=== PATIENT | female | born 1995 | race Caucasian/White ===

== ENCOUNTER → 2018-01-01 14:08 | Outpatient (CLI) | payer OTHER, SELFPAY ==
[2018-01-01 17:08] LABS: Chlamydia Trachomatis by PCR Negative (Negative); Neisserai gonorrhoeae by PCR Negative (Negative)
[2018-01-01 17:09] LABS: Probe Check PASS; Sample Adequacy Control PASS; Specimen Processing Control PASS
[2018-01-25 14:00] LABS: HPV Reflexed? NOT INDICATED
== END ==
PROVIDERS: Visit Provider Obstetrics & Gynecology
DX: Z12.4 Encounter for screening for malignant neoplasm of cervix (principal); Z11.3 Encounter for screening for infections with a predominantly sexual mode of transmission
CPT/HCPCS: 87491; 87591; 88175; G0145

== ENCOUNTER → 2018-01-29 11:53 | Outpatient (CLI) | payer OTHER, SELFPAY ==
[2018-01-29 12:21] LABS: Color, Urine Yellow (Yellow); Glucose, Dipstick Normal (Normal); Ketone-Dipstick Negative (Negative); Leukocyte Esterase-Dipstick 100 /ul (Negative); Nitrite-Dipstick Negative (Negative); Occult Blood-Urine 10 /ul (Negative); Protein-Dipstick 15 mg/dl (Negative); Specific Gravity, Urine 1.025 (1.002-1.030); Urine Bilirubin Dipstick Negative (Negative); Urine Clarity Sl. Cloudy (Clear); Urine Urobilinogen Normal (Normal)
[2018-01-29 12:22] LABS: Absolute Lymphocyte Count 2.11 X10^3/ul (0.83-4.51); Absolute Neutrophil Count 6.2 X10^3/uL (2.0-7.7); Basophil# 0.06 X10^3/uL; Basophil% 0.6 % (0-1); Eosinophil# 0.13 X10^3/uL; Eosinophils% 1.4 % (0-5); Hematocrit 40.8 % (37-47); Hemoglobin 13.6 g/dl (12.0-15.0); Lymphocyte # 2.11 X10^3/ul (4.0); Lymphocyte % 22.4 % (19-41); Mean Corp Hgb Conc 33.3 g/gl (32-36); Mean Corpuscular Hgb 31.9 pg (27.0-32.0); Mean Corpuscular Volume 95.6 fL (81-99); Mean Platelet Vol. 11.6 fl (6.2-12.0); Monocyte# 0.93 X10^3/uL; Monocyte% 9.9 % (0-10); Neutrophil # 6.16 X10^3/uL (2.7-7.7); Neutrophil % 65.5 % (47-70); Platelet Count 281 K/mm3 (150-450); RBC Distribution Width SD 44.2 fl (35.1-43.9); Red Blood Count 4.27 M/mm3 (4.2-5.4); White Blood Count 9.4 K/mm3 (4.4-11.0)
[2018-01-29 12:24] LABS: POSITIVE COUNT NO; POSITIVE DIFFERENTIAL NO; POSITIVE MORPHOLOGY NO
[2018-01-29 12:51] LABS: Amphetamine Urine VISTA NEGATIVE (<1000 ng/mL); Barbiturate Urine VISTA NEGATIVE (< 200 ng/mL); Benzodiazepine Urine VISTA NEGATIVE (< 200 ng/mL); Cocaine Urine VISTA NEGATIVE (< 300 ng/mL); Ecstacy Urine VISTA POSITIVE (< 500 ng/mL); Methadone Urine VISTA NEGATIVE (< 300 ng/mL); PCP Urine VISTA NEGATIVE (< 25 ng/mL); THC Urine VISTA NEGATIVE (< 50 ng/mL); Vista UDS pH Range 6
[2018-01-29 13:04] LABS: Thyroid Stim Hormone (TSH) 2.74 uIU/mL (0.358-3.74)
[2018-01-30 09:09] LABS: HIV - WCH Non-Reactive (Nonreactive); Rubella IgG 103.7 IU/mL
[2018-01-30 11:59] LABS: HEPATITIS B SURFACE AG Negative (Negative); Hep C Antibodies 0.3 s/co ratio (0.0-0.9)
[2018-02-01 01:01] LABS: Prenatal RPR NONREACTIVE (NONREACTIVE)
[2018-02-01 14:42] LABS: Free T3 2.6 pg/mL (2.18-3.98); T4 Free Direct 0.86 ng/dL (0.76-1.46)
== END ==
PROVIDERS: Visit Provider Obstetrics & Gynecology
DX: Z34.81 Encounter for supervision of other normal pregnancy, first trimester (principal)
CPT/HCPCS: 36415; 80307; 81002; 84439; 84443; 84481; 85025; 86703; 86762; 86803; 87340

== ENCOUNTER 2018-03-15 22:23 | Inpatient (IN) | payer OTHER, SELFPAY ==
[2018-03-15 22:28] VITALS: BP 124/77; PULSE 72; RESP 16; TEMP 36.8; O2SAT 98; BMI 20.7
[2018-03-15] MEDS: 0.9% Normal Saline 1,000 ML 1000 ML IV (22:50)
[2018-03-15] MEDS: Ondansetron 4 MG/2 ML Vial IV (22:51)
[2018-03-15 23:03] LABS: Absolute Lymphocyte Count 1.72 X10^3/ul (0.83-4.51); Absolute Neutrophil Count 11.1 X10^3/uL (2.0-7.7); Basophil# 0.02 X10^3/uL; Basophil% 0.1 % (0-1); Eosinophil# 0.02 X10^3/uL; Eosinophils% 0.1 % (0-5); Hematocrit 40.9 % (37-47); Hemoglobin 13.9 g/dl (12.0-15.0); Lymphocyte # 1.72 X10^3/ul (4.0); Lymphocyte % 12.9 % (19-41); Mean Corpuscular Hgb 31.7 pg (27.0-32.0); Mean Corpuscular Volume 93.4 fL (81-99); Mean Platelet Vol. 10.7 fl (6.2-12.0); Monocyte# 0.45 X10^3/uL; Monocyte% 3.4 % (0-10); Neutrophil # 11.12 X10^3/uL (2.7-7.7); Neutrophil % 83.4 % (47-70); Platelet Count 287 K/mm3 (150-450); RBC Distribution Width CV 12.9 % (11.6-14.6); RBC Distribution Width SD 44.1 fl (35.1-43.9); Red Blood Count 4.38 M/mm3 (4.2-5.4); White Blood Count 13.4 K/mm3 (4.4-11.0)
[2018-03-15 23:05] LABS: POSITIVE COUNT NO; POSITIVE DIFFERENTIAL NO; POSITIVE MORPHOLOGY NO
[2018-03-15 23:10] LABS: Prothrombin Time (Protime)PT. 12.7 SECONDS (11.7-14.9)
[2018-03-15 23:11] LABS: Partial Thromboplast Time 27.3 Seconds (24.1-36.2)
[2018-03-15 23:16] LABS: Anion Gap 12 (5-15); BUN 10 mg/dL (7-18); BUN/Creat Ratio 17.8 RATIO (10-20); Chloride 104 mmol/L (98-107); Creatinine, Serum 0.56 mg/dL (0.55-1.02); EST Glomerular Filtration Rate 143 mL/min (>60); Est Glom Filt Rate - Afr Amer 173 mL/min (>60); Estimated Creatinine Clearance 136.07 ml/min; Glucose 84 mg/dL (74-106); Potassium 3.6 mmol/L (3.5-5.1); Sodium Level 136 mmol/L (136-145)
[2018-03-15] MEDS: Morphine 4 MG/ML Syringe IV (23:46)
[2018-03-15] MEDS: proMETHazine 25 MG/ML Syringe 6.25 MG IV (23:46)
[2018-03-15] MEDS: 0.9% Normal Saline 1,000 ML 150 ML IV (23:47)
--- NOTE | 2018-03-15 23:53 | ED.VISSUMM ---
- ER Visit Summary Date of Service: 03/15/18 Chief Complaint: Abdominal pain, nausea and vomiting History of Present Illness: The patient is a 23 F patient presents with right lower quadrant abdominal pain 2 hours prior to arrival. Nausea and vomiting shortly after. No hematemesis. States dry heaving. Patient 16-week gestation followed by Dr. Maria. Last seen 2 weeks ago. Urinary frequency. History of cholecystectomy 2 years ago in [place]. Pain is sharp in nature. Symptoms worse with ambulance ride into the department. Denies any complications with up-to-date. Patient on medications for anxiety. Last meal was 3 hours prior to arrival, states ate a hot dog prior to the baseball game. Physical Examination: General: Alert and oriented ?3, no acute distress HEENT: Normocephalic, atraumatic. Moist mucosa membranes Neck: supple, nontender. Cardiovascular: Regular rate and rhythm, no murmurs Respiratory: Normal breath sounds, symmetric, no distress Abdomen: Soft, gravid abdomen, right lower quadrant tenderness, negative Rovsing's. Negative rebound. Extremities: Nontender, no edema, pulses intact ?4 Neuro: no focal neurological deficits. Test Results: WBC 13.4. Hemoglobin 13. Creatinine 0.56. UA [address] scan abdomen pelvis notes normal appendix, ileus noted with small intestines. Emergency Department Course and Treatment: Bedside ultrasound intrauterine heart tones 130s. Patient 16 weeks gestation presents with right lower quadrant tenderness. Labs were obtained noted white count 13.4. I spoke with covering surgeon Dr. Johnson at 2325, requested definitive scan and call back. CT oral contrast can obtained. Patient treated with morphine initial Zofran, Phenergan was added. Results of CT scan notes ileus with currently a normal appendix. She still has right lower quadrant pain and nausea symptoms. We discussed with Dr. Johnson, discussed with persistent symptoms, states he would like me to talk to medicine in OB for admission. Medicine does not feels a medical issue at this time. Spoke with Dr. Yarelis Ko covering for Dr. Maria, agrees with admitting to her service however she would like surgery to evaluate in the ED. I rediscussed with surgery who will evaluate in the ED. Treatment Plan: [] Disposition: Admission Impression: 1. Right lower quadrant pain 2. Ileus 3. 16 weeks 4. Nausea and vomiting. This note was generated with [employer] dictation software. It may contain incorrect words, spelling, and punctuation that were not noted in review of the chart prior to signing ED Disposition - Plan for ED Patient: Disposition: Acute Care Hospital [facility] Chief Complaint: Nausea/Vomiting Diagnosis: Right lower quadrant abdominal pain, Ileus, 16 weeks gestation of , Nausea and vomiting Referrals: Ashlie Erazo, [place] [Primary Care Provider] -
--- NOTE | 2018-03-15 23:56 | ED.DCSUM_ITS ---
- ER Visit Summary Date of Service: 03/15/18 Chief Complaint: Abdominal pain, nausea and vomiting History of Present Illness: The patient is a 23 F patient presents with right lower quadrant abdominal pain 2 hours prior to arrival. Nausea and vomiting shortly after. No hematemesis. States dry heaving. Patient 16-week gestation followed by Dr. Maria. Last seen 2 weeks ago. Urinary frequency. History of cholecystectomy 2 years ago in [place]. Pain is sharp in nature. Symptoms worse with ambulance ride into the department. Denies any complications with up-to-date. Patient on medications for anxiety. Last meal was 3 hours prior to arrival, states ate a hot dog prior to the baseball game. Physical Examination: General: Alert and oriented ?3, no acute distress HEENT: Normocephalic, atraumatic. Moist mucosa membranes Neck: supple, nontender. Cardiovascular: Regular rate and rhythm, no murmurs Respiratory: Normal breath sounds, symmetric, no distress Abdomen: Soft, gravid abdomen, right lower quadrant tenderness, negative Rovsing's. Negative rebound. Extremities: Nontender, no edema, pulses intact ?4 Neuro: no focal neurological deficits. Test Results: WBC 13.4. Hemoglobin 13. Creatinine 0.56. UA [address] scan abdomen pelvis notes normal appendix, ileus noted with small intestines. Emergency Department Course and Treatment: Bedside ultrasound intrauterine heart tones 130s. Patient 16 weeks gestation presents with right lower quadrant tenderness. Labs were obtained noted white count 13.4. I spoke with covering surgeon Dr. Johnson at 2325, requested definitive scan and call back. CT oral contrast can obtained. Patient treated with morphine initial Zofran, Phenergan was added. Results of CT scan notes ileus with currently a normal appendix. She still has right lower quadrant pain and nausea symptoms. We discussed with Dr. Johnson, discussed with persistent symptoms, states he would like me to talk to medicine in OB for admission. Medicine does not feels a medical issue at this time. Spoke with Dr. Yarelis Ko covering for Dr. Maria, agrees with admitting to her service however she would like surgery to evaluate in the ED. I rediscussed with surgery who will evaluate in the ED. Treatment Plan: [] Disposition: Admission Impression: 1. Right lower quadrant pain 2. Ileus 3. 16 weeks 4. Nausea and vomiting. This note was generated with [employer] dictation software. It may contain incorrect words, spelling, and punctuation that were not noted in review of the chart prior to signing ED Disposition - Plan for ED Patient: Disposition: Acute Care Hospital [facility] Chief Complaint: Nausea/Vomiting Diagnosis: Right lower quadrant abdominal pain, Ileus, 16 weeks gestation of , Nausea and vomiting Referrals: Ashlie Erazo, [place] [Primary Care Provider] -
[2018-03-16] VITALS (9 sets, daily range): BP systolic 99–112; BP diastolic 49–62; PULSE 78–103; RESP 15–18; TEMP 36.6–37.1; O2SAT 93–100; BMI 23.5
[2018-03-16 01:55] LABS: Bacteria 0 SEEN /hpf (None Seen); Red Blood Cells-Urine 0 SEEN /hpf (0-5)
[2018-03-16 01:57] LABS: Color, Urine Yellow (Yellow); Glucose, Dipstick Normal (Normal); Leukocyte Esterase-Dipstick 25 /ul (Negative); Nitrite-Dipstick Negative (Negative); Occult Blood-Urine Negative /ul (Negative); Protein-Dipstick 15 mg/dl (Negative); Urine Bilirubin Dipstick Negative (Negative); Urine Clarity Clear (Clear); Urine Urobilinogen Normal (Normal)
[2018-03-16 02:01] LABS: Ketone-Dipstick 150 mg/dl (Negative)
[2018-03-16 02:05] LABS: Mucous, Urine RARE /hpf (<or=2+); Squamous Epithelial Cells - UA 0-5 SEEN /hpf (5-10); White Blood Cells 0-5 SEEN /hpf (0-5)
[2018-03-16] MEDS: Morphine 4 MG/ML Syringe IV (02:08)
[2018-03-16] MEDS: proMETHazine 25 MG/ML Syringe 12.5 MG IV (03:23)
--- NOTE | 2018-03-16 03:56 | PCM.CONS.GEN ---
Reason for Consult Date of Consultation: 03/16/18 History of Present Illness: The patient is a 23 year old F presents to the ER due to abdominal pain nausea and vomiting. Patient is 16 weeks . Patient states that her pain started around 8 PM and then she had a lot of vomiting afterwards and still has the acidic taste in her mouth. Patient complains of occasional sharp pains on the right side of her abdomen currently states that about a 5/10 and she does state that sometimes the pain does go around to her back as well. Patient had a CT abdomen pelvis did show mild dilation of the small bowel read as a paralytic ileus but the appendix was seen and normal. Patient does have a slight leukocytosis but again the patient is also and has been vomiting. Patient has been does state that he had Chipotle for lunch and he even felt a little sick afterwards but no nausea or vomiting. patient did urgently have to have a bowel movement about 2:00 today; however, patient does have IBS type symptoms where she only has bowel movements about once every 4 days normally. Also patient needs had the flu recently and was visiting. Past Medical History Allergies latex Allergy (Verified 03/15/18 22:25) Rash Home Medications: Ambulatory Orders Medication Instructions Recorded Fluoxetine HCl 80 mg PO QHS 03/15/18 Ranitidine [Zantac] 150 mg PO QHS 03/15/18 buPROPion tablets [Wellbutrin 100 mg PO QHS 03/15/18 tablets] [place]-3 Fatty Acids/Fish Oil 1 cap PO DAILY 03/16/18 [[place] 3 1,000 mg Softgel] Pnv No.122/Iron/Folic Acid 1 tab PO QHS 03/16/18 [ Multi Tablet] Surgical History: Surgical History (Last Updated 03/16/18 @ 04:35 by Maura Ding MD) H/O shoulder surgery Z98.890 History of tonsillectomy and adenoidectomy Z98.890 S/P cholecystectomy K58.9 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: - - Patient is 16 weeks Lives: Spouse/ Significant Other Smoking Status: Never smoker - *Family History Maternal Family History: Family History (Last Updated 03/16/18 @ 04:36 by Maura Ding MD) Mother Endometrial cancer History Items: No pertinent history Review of Systems Constitutional: Reports: Anorexia HEENT: Denies: Difficulty Swallowing Cardiovascular: Denies: Chest Pain Respiratory: Denies: Shortness of Breath Gastrointestinal: Reports: Abdominal Pain, Nausea, Vomiting Patient Problems: Active and Suspected Problems (Last Updated 03/16/18 @ 04:29 by Maura Ding MD) Right lower quadrant abdominal pain (Acute) Ileus (Acute) 16 weeks gestation of (Acute) Nausea and vomiting (Acute) - Physical Exam General: Alert, Oriented x3, Cooperative HEENT: Atraumatic Cardiovascular: Regular rate Abdomen: Soft, Distended - mild, Tender - rlq,suprapubic>ruq, no PS, - - 16 weeks Extremities: No clubbing, No cyanosis, No edema Neurological: Cranial nerves II-XII grossly intact Psych/Mental Status: Normal Affect Vital Signs Temp Pulse Resp BP Pulse Ox 98.4 F 91 18 110/62 96 03/16/18 01:49 03/16/18 03:28 03/16/18 03:28 03/16/18 03:28 03/16/18 03:28 Oxygen Delivery Method Room Air Weight: 121 lb 0.54 oz Body Mass Index (BMI) 20.7 Laboratory Tests Past 24 Hrs 03/15/18 03/15/18 03/15/18 22:56 22:56 22:56 WBC 13.4 H RBC 4.38 Hgb 13.9 Hct 40.9 MCV 93.4 MCH 31.7 MCHC 34.0 RDW 12.9 RDW Differential 44.1 H Plt Count 287 MPV 10.7 Immature Gran % (Auto) 0.100 Neut % (Auto) 83.4 H Lymph % (Auto) 12.9 L [place] % (Auto) 3.4 Eos % (Auto) 0.1 Baso % (Auto) 0.1 Absolute Neuts (auto) 11.1 H Absolute Lymphs (auto) 1.72 Total Counted Not Reportable PT 12.7 INR 1.0 APTT 27.3 Sodium 136 Potassium 3.6 Chloride 104 Carbon Dioxide 20.0 L Anion Gap 12 BUN 10 Creatinine 0.56 Estim Creat Clear Calc 136.07 Est GFR (MDRD) Af Amer 173 Est GFR (MDRD) Non-Af 143 BUN/Creatinine Ratio 17.8 Glucose 84 Calcium 9.0 Urine Color Urine Clarity Urine pH Ur Specific [place] Urine Protein Urine Glucose (UA) Urine Ketones Urine Occult Blood Urine Nitrite Urine Bilirubin Urine Urobilinogen Ur Leukocyte Esterase Urine RBC Urine WBC Ur Squamous Epith Cells Urine Bacteria Urine Mucus 03/16/18 01:47 WBC RBC Hgb Hct MCV MCH MCHC RDW RDW Differential Plt Count MPV Immature Gran % (Auto) Neut % (Auto) Lymph % (Auto) [place] % (Auto) Eos % (Auto) Baso % (Auto) Absolute Neuts (auto) Absolute Lymphs (auto) Total Counted PT INR APTT Sodium Potassium Chloride Carbon Dioxide Anion Gap BUN Creatinine Estim Creat Clear Calc Est GFR (MDRD) Af Amer Est GFR (MDRD) Non-Af BUN/Creatinine Ratio Glucose Calcium Urine Color Yellow Urine Clarity Clear Urine pH 6.0 Ur Specific [place] 1.020 Urine Protein 15 H Urine Glucose (UA) Normal Urine Ketones 150 H Urine Occult Blood Negative Urine Nitrite Negative Urine Bilirubin Negative Urine Urobilinogen Normal Ur Leukocyte Esterase 25 H Urine RBC 0 SEEN Urine WBC 0-5 SEEN Ur Squamous Epith Cells 0-5 SEEN Urine Bacteria 0 SEEN Urine Mucus RARE Assessment/Plan All Active Problems (Last Updated 03/16/18 @ 04:29 by Maura Ding MD) Right lower quadrant abdominal pain (Acute) Ileus (Acute) 16 weeks gestation of (Acute) Nausea and vomiting (Acute) 23-year-old female 16 weeks , abdominal pain, nausea and vomiting 1. Patient CT did show a normal appendix however she did have mildly dilated small bowel throughout and even liquid stool in her cecum area and her transverse colon and more liquid than normal stool in her descending colon. This was read as a possible paralytic ileus, patient did have contrast however it did not only made it to her stomach and first part of her small bowel. On exam patient does have right lower quadrant pain but also has some left lower quadrant pain right upper quadrant pain as well. And with the normal looking appendix on CT I would not expect an ileus to be from that, question if she could have some gastrointestinal issues or even flulike depending on what the niece had as well. We will continue serial abdominal exams. Also discussed with Dr. Maura Ko and she will let us know if there is any changes as well as she is admitting. Alejandra Chacon M.D. Pager: [phone] [facility] [address] [place] [address], [facility], [address] [place] [address] Office: [phone] Code Visit Inpatient E&M: 66039 Init Hosp L1
--- NOTE | 2018-03-16 04:02 | CON.PCM_ITS ---
Reason for Consult Date of Consultation: 03/16/18 History of Present Illness: The patient is a 23 year old F presents to the ER due to abdominal pain nausea and vomiting. Patient is 16 weeks . Patient states that her pain started around 8 PM and then she had a lot of vomiting afterwards and still has the acidic taste in her mouth. Patient complains of occasional sharp pains on the right side of her abdomen currently states that about a 5/10 and she does state that sometimes the pain does go around to her back as well. Patient had a CT abdomen pelvis did show mild dilation of the small bowel read as a paralytic ileus but the appendix was seen and normal. Patient does have a slight leukocyt osis but again the patient is also and has been vomiting. Patient has been does state that he had Chipotle for lunch and he even felt a little sick afterwards but no nausea or vomiting. patient did urgently have to have a bowel movement about 2:00 today; however, patient does have IBS type symptoms where she only has bowel movements about once every 4 days normally. Also patient needs had the flu recently and was visiting. Past Medical History Allergies latex Allergy (Verified 03/15/18 22:25) Rash Home Medications: Ambulatory Orders Medication Instructions Recorded Fluoxetine HCl 80 mg PO QHS 03/15/18 Ranitidine [Zantac] 150 mg PO QHS 03/15/18 buPROPion tablets [Wellbutrin 100 mg PO QHS 03/15/18 tablets] [place]-3 Fatty Acids/Fish Oil 1 cap PO DAILY 03/16/18 [[place] 3 1,000 mg Softgel] Pnv No.122/Iron/Folic Acid 1 tab PO QHS 03/16/18 [ Multi Tablet] Surgical History: Surgical History (Last Updated 03/16/18 @ 04:35 by Maura Ding MD) H/O shoulder surgery Z98.890 History of tonsillectomy and adenoidectomy Z98.890 S/P cholecystectomy K58.9 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 Lives: Spouse/ Significant Other Smoking Status: Never smoker - *Family History Maternal Family History: Family History (Last Updated 03/16/18 @ 04:36 by Maura Ding MD) Mother Endometrial cancer History Items: No pertinent history Review of Systems Constitutional: Reports: Anorexia HEENT: Denies: Difficulty Swallowing Cardiovascular: Denies: Chest Pain Respiratory: Denies: Shortness of Breath Gastrointestinal: Reports: Abdominal Pain, Nausea, Vomiting Patient Problems: Active and Suspected Problems (Last Updated 03/16/18 @ 04:29 by Maura Ko MD) Right lower quadrant abdominal pain (Acute) Ileus (Acute) 16 weeks gestation of (Acute) Nausea and vomiting (Acute) - Physical Exam General: Alert, Oriented x3, Cooperative HEENT: Atraumatic Cardiovascular: Regular rate Abdomen: Soft, Distended - mild, Tender - rlq,suprapubic>ruq, no PS, - - 16 weeks Extremities: No clubbing, No cyanosis, No edema Neurological: Cranial nerves II-XII grossly intact Psych/Mental Status: Normal Affect Vital Signs Temp Pulse Resp BP Pulse Ox 98.4 F 91 18 110/62 96 03/16/18 01:49 03/16/18 03:28 03/16/18 03:28 03/16/18 03:28 03/16/18 03:28 Oxygen Delivery Method Room Air Weight: 121 lb 0.54 oz Body Mass Index (BMI) 20.7 Laboratory Tests Past 24 Hrs 03/15/18 03/15/18 03/15/18 22:56 22:56 22:56 WBC 13.4 H RBC 4.38 Hgb 13.9 Hct 40.9 MCV 93.4 MCH 31.7 MCHC 34.0 RDW 12.9 RDW Differential 44.1 H Plt Count 287 MPV 10.7 Immature Gran % (Auto) 0.100 Neut % (Auto) 83.4 H Lymph % (Auto) 12.9 L [place] % (Auto) 3.4 Eos % (Auto) 0.1 Baso % (Auto) 0.1 Absolute Neuts (auto) 11.1 H Absolute Lymphs (auto) 1.72 Total Counted Not Reportable PT 12.7 INR 1.0 APTT 27.3 Sodium 136 Potassium 3.6 Chloride 104 Carbon Dioxide 20.0 L Anion Gap 12 BUN 10 Creatinine 0.56 Estim Creat Clear Calc 136.07 Est GFR (MDRD) Af Amer 173 Est GFR (MDRD) Non-Af 143 BUN/Creatinine Ratio 17.8 Glucose 84 Calcium 9.0 Urine Color Urine Clarity Urine pH Ur Specific [place] Urine Protein Urine Glucose (UA) Urine Ketones Urine Occult Blood Urine Nitrite Urine Bilirubin Urine Urobilinogen Ur Leukocyte Esterase Urine RBC Urine WBC Ur Squamous Epith Cells Urine Bacteria Urine Mucus 03/16/18 01:47 WBC RBC Hgb Hct MCV MCH MCHC RDW RDW Differential Plt Count MPV Immature Gran % (Auto) Neut % (Auto) Lymph % (Auto) [place] % (Auto) Eos % (Auto) Baso % (Auto) Absolute Neuts (auto) Absolute Lymphs (auto) Total Counted PT INR APTT Sodium Potassium Chloride Carbon Dioxide Anion Gap BUN Creatinine Estim Creat Clear Calc Est GFR (MDRD) Af Amer Est GFR (MDRD) Non-Af BUN/Creatinine Ratio Glucose Calcium Urine Color Yellow Urine Clarity Clear Urine pH 6.0 Ur Specific [place] 1.020 Urine Protein 15 H Urine Glucose (UA) Normal Urine Ketones 150 H Urine Occult Blood Negative Urine Nitrite Negative Urine Bilirubin Negative Urine Urobilinogen Normal Ur Leukocyte Esterase 25 H Urine RBC 0 SEEN Urine WBC 0-5 SEEN Ur Squamous Epith Cells 0-5 SEEN Urine Bacteria 0 SEEN Urine Mucus RARE Assessment/Plan All Active Problems (Last Updated 03/16/18 @ 04:29 by Maura Ding MD) Right lower quadrant abdominal pain (Acute) Ileus (Acute) 16 weeks gestation of (Acute) Nausea and vomiting (Acute) 23-year-old female 16 weeks , abdominal pain, nausea and vomiting 1. Patient CT did show a normal appendix however she did have mildly dilated small bowel throughout and even liquid stool in her cecum area and her transverse colon and more liquid than normal stool in her descending colon. This was read as a possible paralytic ileus, patient did have contrast however it did not only made it to her stomach and first part of her small bowel. On exam patient does have right lower quadrant pain but also has some left lower quadrant pain right upper quadrant pain as well. And with the normal looking appendix on CT I would not expect an ileus to be from that, question if she could have some gastrointestinal issues or even flulike depending on what the niece had as well. We will continue serial abdominal exams. Also discussed with Dr. Maura Ko and she will let us know if there is any changes as well as she is admitting. Alejandra Chacon M.D. Pager: [phone] [facility] [address] [place] [address], [facility], [address] [place] [address] Office: [phone] Code Visit Inpatient E&M: 16904 Init Hosp L1
--- NOTE | 2018-03-16 04:25 | PCM.HP.STD ---
Problem List (1) 16 weeks gestation of Status: Acute (2) Ileus Status: Acute (3) Nausea and vomiting Status: Acute Qualifiers: Vomiting Intractability: non-intractable (4) Right lower quadrant abdominal pain Status: Acute History of Present Illness Date of Admission: 03/16/18 Chief Complaint: nausea and vomiting The patient is a 23 year old 1 para 0 at 16 weeks gestation by a 6-week ultrasound (the [facility] 08/31/2018) presents with nausea and vomiting since 8 PM yesterday evening. The patient has had decreased appetite with nausea and rare emesis throughout her . She notes a history of IBS and prepregnancy has bowel movements approximately every other day. During has bowel movements approximately every 4 days and often has diarrhea if she takes medications to aid in elimination. She reports eating at [employer] and 30 minutes later developed acute abdominal pain on the right side with profuse vomiting. She has history of a cholecystectomy 3-5 years ago (cannot recall exact dates) and relates she was told her appendix was inflamed at the time but did not need to be removed(?). She has no obstetric complaints. Past Medical History Allergies latex Allergy (Verified 03/15/18 22:25) Rash Home Medications: Ambulatory Orders Medication Instructions Recorded Fluoxetine HCl 80 mg PO DAILY 03/15/18 Ranitidine [Zantac] 150 mg PO BID 03/15/18 buPROPion tablets [Wellbutrin 100 mg PO DAILY 03/15/18 tablets] Surgical History: Surgical History (Last Updated 03/16/18 @ 04:35 by Maura Ding MD) H/O shoulder surgery Z98.890 History of tonsillectomy and adenoidectomy Z98.890 S/P cholecystectomy K58.9 Surgical History: arthscropcy, hip - left, arthroscopy, knee - right Psychiatric History: Anxiety, Depression [employer] History: - - LGSIL PAP Lives: Spouse/ Significant Other Smoking Status: Never smoker Tobacco Use: Non-smoker Alcohol: None Drugs: None - *Family History Maternal Family History: Family History (Last Updated 03/16/18 @ 04:36 by Maura Ding MD) Mother Endometrial cancer History Items: No pertinent history Review of Systems Constitutional: Reports: Anorexia, Fatigue. Denies: Fever Cardiovascular: Denies: Chest Pain Respiratory: Denies: Shortness of Breath Gastrointestinal: Reports: Abdominal Pain, Constipation, Nausea, Vomiting. Denies: Diarrhea Genitourinary: Reports: Frequency. Denies: Dysuria Gynecological: Denies: Vaginal bleeding VTE Information - Inpt Only VTE Present on Admission: No VTE Mechan Device Prophylaxis: None VTE Pharm Prophylaxis ordered?: No Patient Problems: Active and Suspected Problems (Last Updated 03/16/18 @ 04:29 by Maura Ding MD) Right lower quadrant abdominal pain (Acute) Ileus (Acute) 16 weeks gestation of (Acute) Nausea and vomiting (Acute) Subjective: See HPI - Physical Exam General: Alert, Oriented x3, Cooperative, No apparent distress HEENT: Atraumatic, Normocephalic Lungs: Clear to auscultation, Normal air movement Cardiovascular: Regular rate, Regular Rhythm, Normal S1, Normal S2 Abdomen: Bowel Sounds Present, Soft, Non-Distended, Gravid, - - +RUQ and RLQ tenderness without rebound or guarding Extremities: No edema, No Calf Tenderness Neurological: Neuro grossly intact Psych/Mental Status: Normal Affect, Appropriate, Alert and oriented to time, place, person, mood and affect Comment: FHT in ER 160 bpm Vital Signs Temp Pulse Resp BP Pulse Ox 98.4 F 91 18 110/62 96 03/16/18 01:49 03/16/18 03:28 03/16/18 03:28 03/16/18 03:28 03/16/18 03:28 Oxygen Delivery Method Room Air Weight: 54.9 kg Body Mass Index (BMI) 20.7 Laboratory Tests Past 24 Hrs 03/15/18 03/15/18 03/15/18 22:56 22:56 22:56 WBC 13.4 H RBC 4.38 Hgb 13.9 Hct 40.9 MCV 93.4 MCH 31.7 MCHC 34.0 RDW 12.9 RDW Differential 44.1 H Plt Count 287 MPV 10.7 Immature Gran % (Auto) 0.100 Neut % (Auto) 83.4 H Lymph % (Auto) 12.[address] % (Auto) 3.4 Eos % (Auto) 0.1 Baso % (Auto) 0.1 Absolute Neuts (auto) 11.1 H Absolute Lymphs (auto) 1.72 Total Counted Not Reportable PT 12.7 INR 1.0 APTT 27.3 Sodium 136 Potassium 3.6 Chloride 104 Carbon Dioxide 20.0 L Anion Gap 12 BUN 10 Creatinine 0.56 Estim Creat Clear Calc 136.07 Est GFR (MDRD) Af Amer 173 Est GFR (MDRD) Non-Af 143 BUN/Creatinine Ratio 17.8 Glucose 84 Calcium 9.0 Urine Color Urine Clarity Urine pH Ur Specific [place] Urine Protein Urine Glucose (UA) Urine Ketones Urine Occult Blood Urine Nitrite Urine Bilirubin Urine Urobilinogen Ur Leukocyte Esterase Urine RBC Urine WBC Ur Squamous Epith Cells Urine Bacteria Urine Mucus 03/16/18 01:47 WBC RBC Hgb Hct MCV MCH MCHC RDW RDW Differential Plt Count MPV Immature Gran % (Auto) Neut % (Auto) Lymph % (Auto) [place] % (Auto) Eos % (Auto) Baso % (Auto) Absolute Neuts (auto) Absolute Lymphs (auto) Total Counted PT INR APTT Sodium Potassium Chloride Carbon Dioxide Anion Gap BUN Creatinine Estim Creat Clear Calc Est GFR (MDRD) Af Amer Est GFR (MDRD) Non-Af BUN/Creatinine Ratio Glucose Calcium Urine Color Yellow Urine Clarity Clear Urine pH 6.0 Ur Specific [place] 1.020 Urine Protein 15 H Urine Glucose (UA) Normal Urine Ketones 150 H Urine Occult Blood Negative Urine Nitrite Negative Urine Bilirubin Negative Urine Urobilinogen Normal Ur Leukocyte Esterase 25 H Urine RBC 0 SEEN Urine WBC 0-5 SEEN Ur Squamous Epith Cells 0-5 SEEN Urine Bacteria 0 SEEN Urine Mucus RARE Assessment/Plan All Active Problems (Last Updated 03/16/18 @ 04:29 by Maura Ding MD) Right lower quadrant abdominal pain (Acute) Ileus (Acute) 16 weeks gestation of (Acute) Nausea and vomiting (Acute) 23yo G1 @ 16wga admitted with ileus - possible IBS exacerbation by , however, cannot r/o infectious etiology. -CT A/P reviewed - No acute intra-abdominal process -Mild leukocytosis, may also be due to or hemoconcentration. -Discussed presentation with Dr. Chacon, consulting from General Surgery. Will plan for bowel rest, serial abdominal exams. -Reglan, Dulcolax suppository -[facility] qshift Code Visit Inpatient E&M: 53435 Init Hosp L3
--- NOTE | 2018-03-16 04:29 | HP.PCM_ITS ---
Problem List (1) 16 weeks gestation of Status: Acute (2) Ileus Status: Acute (3) Nausea and vomiting Status: Acute Qualifiers: Vomiting Intractability: non-intractable (4) Right lower quadrant abdominal pain Status: Acute History of Present Illness Date of Admission: 03/16/18 Chief Complaint: nausea and vomiting The patient is a 23 year old 1 para 0 at 16 weeks gestation by a 6-week ultrasound (the [facility] 08/31/2018) presents with nausea and vomiting since 8 PM yesterday evening. The patient has had decreased appetite with nausea and rare emesis throughout her . She notes a history of IBS and prepregnancy has bowel movements approximately every other day. During has bowel movements approximately every 4 days and often has diarrhea if she takes medications to aid in elimination. She reports eating at [employer] and 30 minutes later developed acute abdominal pain on the right side with profuse vomiting. She has history of a cholecystectomy 3-5 years ago (cannot recall exact dates) and relates she was told her appendix was inflamed at the time but did not need to be removed(?). She has no obstetric complaints. Past Medical History Allergies latex Allergy (Verified 03/15/18 22:25) Rash Home Medications: Ambulatory Orders Medication Instructions Recorded Fluoxetine HCl 80 mg PO DAILY 03/15/18 Ranitidine [Zantac] 150 mg PO BID 03/15/18 buPROPion tablets [Wellbutrin 100 mg PO DAILY 03/15/18 tablets] Surgical History: Surgical History (Last Updated 03/16/18 @ 04:35 by Maura Ding MD) H/O shoulder surgery Z98.890 History of tonsillectomy and adenoidectomy Z98.890 S/P cholecystectomy K58.9 Surgical History: arthscropcy, hip - left, arthroscopy, knee - right Psychiatric History: Anxiety, Depression [employer] History: - - LGSIL PAP Lives: Spouse/ Significant Other Smoking Status: Never smoker Tobacco Use: Non-smoker Alcohol: None Drugs: None - *Family History Maternal Family History: Family History (Last Updated 03/16/18 @ 04:36 by Maura Ding MD) Mother Endometrial cancer History Items: No pertinent history Review of Systems Constitutional: Reports: Anorexia, Fatigue. Denies: Fever Cardiovascular: Denies: Chest Pain Respiratory: Denies: Shortness of Breath Gastrointestinal: Reports: Abdominal Pain, Constipation, Nausea, Vomiting. Bill es: Diarrhea Genitourinary: Reports: Frequency. Denies: Dysuria Gynecological: Denies: Vaginal bleeding VTE Information - Inpt Only VTE Present on Admission: No VTE Mechan Device Prophylaxis: None VTE Pharm Prophylaxis ordered?: No Patient Problems: Active and Suspected Problems (Last Updated 03/16/18 @ 04:29 by Maura Ko MD) Right lower quadrant abdominal pain (Acute) Ileus (Acute) 16 weeks gestation of (Acute) Nausea and vomiting (Acute) Subjective: See HPI - Physical Exam General: Alert, Oriented x3, Cooperative, No apparent distress HEENT: Atraumatic, Normocephalic Lungs: Clear to auscultation, Normal air movement Cardiovascular: Regular rate, Regular Rhythm, Normal S1, Normal S2 Abdomen: Bowel Sounds Present, Soft, Non-Distended, Gravid, - - +RUQ and RLQ tenderness without rebound or guarding Extremities: No edema, No Calf Tenderness Neurological: Neuro grossly intact Psych/Mental Status: Normal Affect, Appropriate, Alert and oriented to time, place, person, mood and affect Comment: FHT in ER 160 bpm Vital Signs Temp Pulse Resp BP Pulse Ox 98.4 F 91 18 110/62 96 03/16/18 01:49 03/16/18 03:28 03/16/18 03:28 03/16/18 03:28 03/16/18 03:28 Oxygen Delivery Method Room Air Weight: 54.9 kg Body Mass Index (BMI) 20.7 Laboratory Tests Past 24 Hrs 03/15/18 03/15/18 03/15/18 22:56 22:56 22:56 WBC 13.4 H RBC 4.38 Hgb 13.9 Hct 40.9 MCV 93.4 MCH 31.7 MCHC 34.0 RDW 12.9 RDW Differential 44.1 H Plt Count 287 MPV 10.7 Immature Gran % (Auto) 0.100 Neut % (Auto) 83.4 H Lymph % (Auto) 12.9 L [place] % (Auto) 3.4 Eos % (Auto) 0.1 Baso % (Auto) 0.1 Absolute Neuts (auto) 11.1 H Absolute Lymphs (auto) 1.72 Total Counted Not Reportable PT 12.7 INR 1.0 APTT 27.3 Sodium 136 Potassium 3.6 Chloride 104 Carbon Dioxide 20.0 L Anion Gap 12 BUN 10 Creatinine 0.56 Estim Creat Clear Calc 136.07 Est GFR (MDRD) Af Amer 173 Est GFR (MDRD) Non-Af 143 BUN/Creatinine Ratio 17.8 Glucose 84 Calcium 9.0 Urine Color Urine Clarity Urine pH Ur Specific [place] Urine Protein Urine Glucose (UA) Urine Ketones Urine Occult Blood Urine Nitrite Urine Bilirubin Urine Urobilinogen Ur Leukocyte Esterase Urine RBC Urine WBC Ur Squamous Epith Cells Urine Bacteria Urine Mucus 03/16/18 01:47 WBC RBC Hgb Hct MCV MCH MCHC RDW RDW Differential Plt Count MPV Immature Gran % (Auto) Neut % (Auto) Lymph % (Auto) [place] % (Auto) Eos % (Auto) Baso % (Auto) Absolute Neuts (auto) Absolute Lymphs (auto) Total Counted PT INR APTT Sodium Potassium Chloride Carbon Dioxide Anion Gap BUN Creatinine Estim Creat Clear Calc Est GFR (MDRD) Af Amer Est GFR (MDRD) Non-Af BUN/Creatinine Ratio Glucose Calcium Urine Color Yellow Urine Clarity Clear Urine pH 6.0 Ur Specific [place] 1.020 Urine Protein 15 H Urine Glucose (UA) Normal Urine Ketones 150 H Urine Occult Blood Negative Urine Nitrite Negative Urine Bilirubin Negative Urine Urobilinogen Normal Ur Leukocyte Esterase 25 H Urine RBC 0 SEEN Urine WBC 0-5 SEEN Ur Squamous Epith Cells 0-5 SEEN Urine Bacteria 0 SEEN Urine Mucus RARE Assessment/Plan All Active Problems (Last Updated 03/16/18 @ 04:29 by Maura Ding MD) Right lower quadrant abdominal pain (Acute) Ileus (Acute) 16 weeks gestation of (Acute) Nausea and vomiting (Acute) 23yo G1 @ 16wga admitted with ileus - possible IBS exacerbation by , however, cannot r/o infectious etiology. -CT A/P reviewed - No acute intra-abdominal process -Mild leukocytosis, may also be due to or hemoconcentration. -Discussed presentation with Dr. Chacon, consulting from General Surgery. Will plan for bowel rest, serial abdominal exams. -Reglan, Dulcolax suppository -[facility] qshift Code Visit Inpatient E&M: 20552 Init Hosp L3
[2018-03-16] MEDS: Metoclopramide 10 MG/2 ML Vial 2.5 MG IV ×4 (04:47→21:45)
[2018-03-16] MEDS: Acetaminophen 500 MG Tablet PO (04:53)
[2018-03-16] MEDS: Dextrose 5%/0.9% NaCl 1,000 ML 150 ML IV ×3 (05:20→18:37)
[2018-03-16] MEDS: 0.9% NaCl Peripheral Flush Adult/Peds IV ×3 (09:18→17:25)
--- NOTE | 2018-03-16 12:55 | PCM.PN.BLA ---
Progress Note Patient reports abdominal pain worsening and requests pain medication. Notes that morphine did not help pain earlier. She notes however that she slept most of the morning after arriving to the floor and recently awoke around noon. She denies further emesis. + nausea. She desires to eat. No flatus, however has had loose watery stool x 1 without blood or mucus. Denies fever. Has not yet been out of bed. Vital Signs - 8 hr 03/16/18 09:14 Temperature 98.2 F Pulse Rate 91 Respiratory Rate 16 Blood Pressure 101/50 L Pulse Ox 99 GEN - NAD, AAO x 3 ABD - soft, gravid, + RLQ tenderness without rebound or guarding. RUQ tenderness resolved FHR - 140 bpm A/P: 23yo at 16wga with ileus. -Ordered Dilaudid prn. Reviewed with patient potential constipating effect of opioid medications which may further contribute to ileus. I suspect she has worsened pain due to mass movement of gas. Following discussion, pt indicates she will hold off on pain medication at this time, but she is aware it is available if pain is severe. -Advanced to sips and chips
--- NOTE | 2018-03-16 13:35 | CM.UR ---
Attempted to meet with patient 2x earlier this am however her and her were sleeping in room. Vikram Samson RN, CCM.
[2018-03-16] MEDS: HYDROmorphone 0.5 MG/0.5 ML SYRINGE IV ×2 (16:54→21:42)
[2018-03-16] MEDS: Bisacodyl 10 MG Suppository RECTAL (17:25)
[2018-03-16] MEDS: Ondansetron 4 MG/2 ML Vial IV (17:25)
--- NOTE | 2018-03-16 20:10 | NURSING ---
JAE Coles in to see pt for FHT. HR 130
--- NOTE | 2018-03-16 23:24 | CT_ITS ---
STUDY: CT ABDOMEN AND PELVIS WITH CONTRAST REASON FOR EXAM: Female, 23 years old. RLQ PAIN AND VOMITING TONIGHT,16 WEEKS HX:CELIAC DISEASE,CHOLECYSTECTOMY RADIATION DOSAGE (If Supplied By Facility): CTDIvol = ( 7.91 ) mGy, DLP = ( 424.69 ) mGycm TECHNIQUE: Transaxial images were obtained from the dome of the diaphragm to the symphysis pubis without oral contrast. 100ML ml of Isovue 300 contrast was administered. Sagittal and coronal images were reconstructed. Individualized dose optimization techniques were used for this CT. COMPARISON: None. FINDINGS: The visualized lung bases are unremarkable. The visualized portions of the heart are within normal limits. Normal liver. There are surgical clips in the gallbladder fossa consistent with a prior cholecystectomy. Normal spleen. Normal pancreas. Normal bilateral adrenal glands. Normal right kidney. Normal left kidney. Normal visualized stomach. There is a paralytic ileus of the small intestine with mild diffuse distention. Normal colon. The appendix is visualized and appears normal. Normal abdominal aorta. Normal inferior vena cava. Normal retroperitoneum. Normal urinary bladder. There is a single intrauterine gestation. The placenta is fundal. Normal abdominal wall. Normal osseous structures. CT/Abdomen/Pelvis WITH Contrast IMPRESSION: There is a paralytic ileus of the small intestine with mild diffuse distention. Electronically Signed: Bernice West MD at 2:52 EDT Tel , Service support ,
[2018-03-17] MEDS: Dextrose 5%/0.9% NaCl 1,000 ML 150 ML IV ×4 (01:04→21:20)
[2018-03-17 01:14] VITALS: BP 101/55; PULSE 72; RESP 16; TEMP 36.6; O2SAT 98
[2018-03-17] MEDS: HYDROmorphone 0.5 MG/0.5 ML SYRINGE IV (05:16)
[2018-03-17] MEDS: Metoclopramide 10 MG/2 ML Vial 2.5 MG IV ×4 (05:16→21:21)
[2018-03-17 06:03] LABS: Absolute Lymphocyte Count 0.93 X10^3/ul (0.83-4.51); Absolute Neutrophil Count 3.4 X10^3/uL (2.0-7.7); Basophil# 0.02 X10^3/uL; Basophil% 0.4 % (0-1); Eosinophil# 0.18 X10^3/uL; Eosinophils% 3.7 % (0-5); Hematocrit 31.6 % (37-47); Hemoglobin 10.5 g/dl (12.0-15.0); Lymphocyte # 0.93 X10^3/ul (4.0); Lymphocyte % 18.9 % (19-41); Mean Corp Hgb Conc 33.2 g/gl (32-36); Mean Corpuscular Hgb 32.1 pg (27.0-32.0); Mean Corpuscular Volume 96.6 fL (81-99); Mean Platelet Vol. 11.2 fl (6.2-12.0); Monocyte# 0.38 X10^3/uL; Monocyte% 7.7 % (0-10); Neutrophil # 3.38 X10^3/uL (2.7-7.7); Neutrophil % 68.9 % (47-70); Platelet Count 205 K/mm3 (150-450); RBC Distribution Width CV 13.3 % (11.6-14.6); Red Blood Count 3.27 M/mm3 (4.2-5.4); White Blood Count 4.9 K/mm3 (4.4-11.0)
[2018-03-17 06:08] LABS: POSITIVE COUNT NO; POSITIVE DIFFERENTIAL NO; POSITIVE MORPHOLOGY NO
[2018-03-17 06:34] LABS: ALB/GLOB Ratio 0.8 RATIO (0.9-2.4); AST(SGOT) 30 U/L (15-37); Alanine Aminotransfer ALT/SGPT 22 U/L (13-56); Albumin, Serum 2.2 g/dL (3.2-5.0); Alkaline Phosphatase 53 U/L (45-117); Anion Gap 7 (5-15); BUN 1 mg/dL (7-18); BUN/Creat Ratio 2.8 RATIO (10-20); Calcium,Total 7.2 mg/dL (8.5-10.1); Chloride 112 mmol/L (98-107); Creatinine, Serum 0.36 mg/dL (0.55-1.02); EST Glomerular Filtration Rate 240 mL/min (>60); Est Glom Filt Rate - Afr Amer 290 mL/min (>60); Estimated Creatinine Clearance 211.67 ml/min; Globulin 2.8 g/dL (2.2-4.2); Glucose 90 mg/dL (74-106); Sodium Level 139 mmol/L (136-145)
--- NOTE | 2018-03-17 07:33 | PCM.PN.SRG ---
Patient Problems: Active and Suspected Problems (Last Updated 03/16/18 @ 04:29 by Maura Ding MD) Right lower quadrant abdominal pain (Acute) Ileus (Acute) 16 weeks gestation of (Acute) Nausea and vomiting (Acute) Subjective: Patient still complaining of right lower quadrant pain, patient only walked once yesterday, positive flatus this morning while in the restroom, still complains of nausea but no emesis and has been taking sips - Physical Exam General: Alert, Oriented x3, Cooperative, No apparent distress Lungs: Normal air movement Cardiovascular: Regular rate Abdomen: Soft, Passing Flatus, Gravid, Distended - Mild to moderate, Tender - Diffusely tender mild worse in the bilateral lower quadrants, no guarding, equivocal rebound Neurological: Cranial nerves II-XII grossly intact Vital Signs Temp Pulse Resp BP Pulse Ox 98 F 72 16 101/55 L 98 03/17/18 01:14 03/17/18 01:14 03/17/18 01:14 03/17/18 01:14 03/17/18 01:14 Oxygen Delivery Method Room Air Weight: 148 lb 3.2 oz Body Mass Index (BMI) 23.5 Intake and Output for Last 24 Hours 03/15/18 03/16/18 03/17/18 23:59 23:59 23:59 Intake Total 1252 / 1252 2505 / 2505 Output Total 1000 / 1000 1200 / 1200 Balance 252 / 252 1305 / 1305 Laboratory Tests Past 24 Hrs 03/17/18 03/17/18 05:43 05:43 WBC 4.9 RBC 3.27 L Hgb 10.5 L Hct 31.6 L MCV 96.6 MCH 32.1 H MCHC 33.2 RDW 13.3 RDW Differential 45.0 H Plt Count 205 MPV 11.2 Immature Gran % (Auto) 0.400 Neut % (Auto) 68.9 Lymph % (Auto) 18.9 L [place] % (Auto) 7.7 Eos % (Auto) 3.7 Baso % (Auto) 0.4 Absolute Neuts (auto) 3.4 Absolute Lymphs (auto) 0.93 Total Counted Not Reportable Sodium 139 Potassium 3.0 L Chloride 112 H Carbon Dioxide 20.0 L Anion Gap 7 BUN 1 L Creatinine 0.36 L Estim Creat Clear Calc 211.67 Est GFR (MDRD) Af Amer 290 Est GFR (MDRD) Non-Af 240 BUN/Creatinine Ratio 2.8 L Glucose 90 Calcium 7.2 L Total Bilirubin 0.10 L AST 30 ALT 22 Alkaline Phosphatase 53 Total Protein 5.0 L Albumin 2.2 L Globulin 2.8 Albumin/Globulin Ratio 0.8 L Medical Necessity - Tobacco Use Smoking Status: Never smoker Tobacco Use: Non-smoker Assessment/Plan All Active Problems (Last Updated 03/16/18 @ 04:29 by Maura Ding MD) Right lower quadrant abdominal pain (Acute) Ileus (Acute) 16 weeks gestation of (Acute) Nausea and vomiting (Acute) 23-year-old female 16 weeks , abdominal pain-ileus, nausea and vomiting 1. Patient's white blood cell count is within normal range with no shift this morning, still complains of abdominal pain but only walked once yesterday. Is getting 0.5 of Dilaudid for pain last at 5 AM previous to that was about 10 PM. Patient did have large amount of flatus this morning in the bathroom. Encourage patient that if she is going to get pain meds recommend walking in the halls to help promote bowel function. Will replace potassium and encourage patient to ambulate and will give a trial of clears. Discussed with Dr. Yarelis Ko. Alejandra Chacon M.D. Pager: [phone] [facility] [address] [place] [address], [facility], [address] [place] [address] Office: [phone]
--- NOTE | 2018-03-17 07:38 | PN.SURG_ITS ---
Patient Problems: Active and Suspected Problems (Last Updated 03/16/18 @ 04:29 by Maura Ko MD) Right lower quadrant abdominal pain (Acute) Ileus (Acute) 16 weeks gestation of (Acute) Nausea and vomiting (Acute) Subjective: Patient still complaining of right lower quadrant pain, patient only walked once yesterday, positive flatus this morning while in the restroom, still complains of nausea but no emesis and has been taking sips - Physical Exam General: Alert, Oriented x3, Cooperative, No apparent distress Lungs: Normal air movement Cardiovascular: Regular rate Abdomen: Soft, Passing Flatus, Gravid, Distended - Mild to moderate, Tender - Diffusely tender mild worse in the bilateral lower quadrants, no guarding, equivocal rebound Neurological: Cranial nerves II-XII grossly intact Vital Signs Temp Pulse Resp BP Pulse Ox 98 F 72 16 101/55 L 98 03/17/18 01:14 03/17/18 01:14 03/17/18 01:14 03/17/18 01:14 03/17/18 01:14 Oxygen Delivery Method Room Air Weight: 148 lb 3.2 oz Body Mass Index (BMI) 23.5 Intake and Output for Last 24 Hours 03/15/18 03/16/18 03/17/18 23:59 23:59 23:59 Intake Total 1252 / 1252 2505 / 2505 Output Total 1000 / 1000 1200 / 1200 Balance 252 / 252 1305 / 1305 Laboratory Tests Past 24 Hrs 03/17/18 03/17/18 05:43 05:43 WBC 4.9 RBC 3.27 L Hgb 10.5 L Hct 31.6 L MCV 96.6 MCH 32.1 H MCHC 33.2 RDW 13.3 RDW Differential 45.0 H Plt Count 205 MPV 11.2 Immature Gran % (Auto) 0.400 Neut % (Auto) 68.9 Lymph % (Auto) 18.9 L [place] % (Auto) 7.7 Eos % (Auto) 3.7 Baso % (Auto) 0.4 Absolute Neuts (auto) 3.4 Absolute Lymphs (auto) 0.93 Total Counted Not Reportable Sodium 139 Potassium 3.0 L Chloride 112 H Carbon Dioxide 20.0 L Anion Gap 7 BUN 1 L Creatinine 0.36 L Estim Creat Clear Calc 211.67 Est GFR (MDRD) Af Amer 290 Est GFR (MDRD) Non-Af 240 BUN/Creatinine Ratio 2.8 L Glucose 90 Calcium 7.2 L Total Bilirubin 0.10 L AST 30 ALT 22 Alkaline Phosphatase 53 Total Protein 5.0 L Albumin 2.2 L Globulin 2.8 Albumin/Globulin Ratio 0.8 L Medical Necessity - Tobacco Use Smoking Status: Never smoker Tobacco Use: Non-smoker Assessment/Plan All Active Problems (Last Updated 03/16/18 @ 04:29 by Maura Ding MD) Right lower quadrant abdominal pain (Acute) Ileus (Acute) 16 weeks gestation of (Acute) Nausea and vomiting (Acute) 23-year-old female 16 weeks , abdominal pain-ileus, nausea and vomiting 1. Patient's white blood cell count is within normal range with no shift this morning, still complains of abdominal pain but only walked once yesterday. Is getting 0.5 of Dilaudid for pain last at 5 AM previous to that was about 10 PM. Patient did have large amount of flatus this morning in the bathroom. Encourage patient that if she is going to get pain meds recommend walking in the halls to help promote bowel function. Will replace potassium and encourage patient to ambulate and will give a trial of clears. Discussed with Dr. Yarelis Ko. Alejandra Chacon M.D. Pager: [phone] [facility] [address] [place] [address], [facility], [address] [place] [address] Office: [phone]
[2018-03-17 07:55] VITALS: BP 104/54; PULSE 81; RESP 18; TEMP 36.9; O2SAT 99
--- NOTE | 2018-03-17 08:47 | PCM.PN.OB ---
Patient Problems: Active and Suspected Problems (Last Updated 03/16/18 @ 04:29 by Maura Ding MD) Right lower quadrant abdominal pain (Acute) Ileus (Acute) 16 weeks gestation of (Acute) Nausea and vomiting (Acute) Subjective: Denies passing flatus. Had two additional bowel movements. She is nauseated, no vomiting, tolerated jello this morning. She had episode of lightheadedness last night approximately 1 hour after receiving IV Dilaudid, no falls or syncope. Last had pain medication early this morning. She relates able to sleep but awoke with increased abdominal pain. Objective: AVSS - Physical Exam General: Alert, Oriented x3, Cooperative HEENT: Atraumatic, Normocephalic Lungs: Clear to auscultation, Normal air movement Cardiovascular: Regular rate, Regular Rhythm, Normal S1, Normal S2 Abdomen: Bowel Sounds Present, Soft, Non-Distended, Gravid, - - Diffusely tender mild worse in the bilateral lower quadrants, No rebound or guarding Extremities: No edema, No Calf Tenderness Neurological: Neuro grossly intact Psych/Mental Status: Normal Affect, Appropriate, Alert and oriented to time, place, person, mood and affect Vital Signs Temp Pulse Resp BP Pulse Ox 98.4 F 81 18 104/54 L 99 03/17/18 07:55 03/17/18 07:55 03/17/18 07:55 03/17/18 07:55 03/17/18 07:55 Oxygen Delivery Method Room Air Weight: 67.222 kg Body Mass Index (BMI) 23.5 Intake and Output for Last 24 Hours 03/15/18 03/16/18 03/17/18 23:59 23:59 23:59 Intake Total 1252 / 1252 2505 / 2505 Output Total 1000 / 1000 1200 / 1200 Balance 252 / 252 1305 / 1305 Laboratory Tests Past 24 Hrs 03/17/18 03/17/18 05:43 05:43 WBC 4.9 RBC 3.27 L Hgb 10.5 L Hct 31.6 L MCV 96.6 MCH 32.1 H MCHC 33.2 RDW 13.3 RDW Differential 45.0 H Plt Count 205 MPV 11.2 Immature Gran % (Auto) 0.400 Neut % (Auto) 68.9 Lymph % (Auto) 18.9 L [place] % (Auto) 7.7 Eos % (Auto) 3.7 Baso % (Auto) 0.4 Absolute Neuts (auto) 3.4 Absolute Lymphs (auto) 0.93 Total Counted Not Reportable Sodium 139 Potassium 3.0 L Chloride 112 H Carbon Dioxide 20.0 L Anion Gap 7 BUN 1 L Creatinine 0.36 L Estim Creat Clear Calc 211.67 Est GFR (MDRD) Af Amer 290 Est GFR (MDRD) Non-Af 240 BUN/Creatinine Ratio 2.8 L Glucose 90 Calcium 7.2 L Total Bilirubin 0.10 L AST 30 ALT 22 Alkaline Phosphatase 53 Total Protein 5.0 L Albumin 2.2 L Globulin 2.8 Albumin/Globulin Ratio 0.8 L Medical Necessity - Tobacco Use Smoking Status: Never smoker Tobacco Use: Non-smoker Assessment/Plan All Active Problems (Last Updated 03/16/18 @ 04:29 by Maura Ding MD) Right lower quadrant abdominal pain (Acute) Ileus (Acute) 16 weeks gestation of (Acute) Nausea and vomiting (Acute) 23yo G1 @ 16wga admitted with ileus - possible IBS exacerbation by -CT A/P reviewed - No acute intra-abdominal process - no surgical abdomen at this time -Mild leukocytosis, now resolved - suspect prior hemoconcentration -Hypokalemia - will replete orally per Dr. Chacon -Advance to [facility] -T qshift
[2018-03-17] MEDS: 0.9% NaCl Peripheral Flush Adult/Peds IV ×2 (09:29→17:15)
--- NOTE | 2018-03-17 10:39 | CM.UR ---
Met face to face with patient. Denies any needs. Patient is a young woman who was completely independent prior to admission and should be able to return to previous level of functioning w/o difficulty. Instructed that case mgmt is available should anything arise. Verb understanding. Vikram Samson RN, [facility].
--- NOTE | 2018-03-17 13:23 | NURSING ---
FHR 136 bpm in LLQ per doppler
[2018-03-17 14:21] VITALS: BP 98/66; PULSE 63; RESP 18; TEMP 37.2; O2SAT 96
[2018-03-17] MEDS: Acetaminophen 500 MG Tablet PO (20:33)
[2018-03-17] MEDS: traMADol 50 MG Tablet PO (20:34)
[2018-03-17] MEDS: Bisacodyl 10 MG Suppository RECTAL (20:35)
[2018-03-17 21:00] VITALS: BP 104/58; PULSE 77; RESP 16; TEMP 36.8; O2SAT 100
[2018-03-18] MEDS: HYDROmorphone 0.5 MG/0.5 ML SYRINGE IV ×2 (01:06→05:10)
[2018-03-18] MEDS: Ondansetron 4 MG/2 ML Vial IV ×2 (01:06→13:41)
[2018-03-18 03:00] VITALS: BP 93/49; PULSE 64; RESP 15; TEMP 36.7; O2SAT 97
[2018-03-18] MEDS: traMADol 50 MG Tablet PO (04:12)
[2018-03-18] MEDS: Dextrose 5%/0.9% NaCl 1,000 ML 150 ML IV ×4 (04:14→23:53)
[2018-03-18] MEDS: Metoclopramide 10 MG/2 ML Vial 2.5 MG IV ×3 (05:19→17:02)
[2018-03-18 06:17] LABS: Absolute Lymphocyte Count 1.99 X10^3/ul (0.83-4.51); Absolute Neutrophil Count 1.6 X10^3/uL (2.0-7.7); Basophil# 0.02 X10^3/uL; Basophil% 0.4 % (0-1); Eosinophil# 0.26 X10^3/uL; Eosinophils% 5.7 % (0-5); Hematocrit 30.7 % (37-47); Hemoglobin 10.3 g/dl (12.0-15.0); Lymphocyte # 1.99 X10^3/ul (4.0); Lymphocyte % 43.8 % (19-41); Mean Corp Hgb Conc 33.6 g/gl (32-36); Mean Corpuscular Hgb 32.5 pg (27.0-32.0); Mean Corpuscular Volume 96.8 fL (81-99); Mean Platelet Vol. 10.9 fl (6.2-12.0); Monocyte# 0.65 X10^3/uL; Monocyte% 14.3 % (0-10); Neutrophil # 1.61 X10^3/uL (2.7-7.7); Neutrophil % 35.6 % (47-70); Platelet Count 200 K/mm3 (150-450); RBC Distribution Width CV 13.3 % (11.6-14.6); RBC Distribution Width SD 45.2 fl (35.1-43.9); Red Blood Count 3.17 M/mm3 (4.2-5.4); White Blood Count 4.5 K/mm3 (4.4-11.0)
[2018-03-18 06:22] LABS: POSITIVE COUNT NO; POSITIVE DIFFERENTIAL NO; POSITIVE MORPHOLOGY NO
[2018-03-18 06:44] LABS: ALB/GLOB Ratio 0.8 RATIO (0.9-2.4); AST(SGOT) 25 U/L (15-37); Alanine Aminotransfer ALT/SGPT 24 U/L (13-56); Albumin, Serum 2.2 g/dL (3.2-5.0); Alkaline Phosphatase 50 U/L (45-117); Anion Gap 8 (5-15); BUN 1 mg/dL (7-18); BUN/Creat Ratio 3.3 RATIO (10-20); Calcium,Total 7.9 mg/dL (8.5-10.1); Chloride 112 mmol/L (98-107); Creatinine, Serum 0.31 mg/dL (0.55-1.02); EST Glomerular Filtration Rate 289 mL/min (>60); Est Glom Filt Rate - Afr Amer 350 mL/min (>60); Estimated Creatinine Clearance 245.81 ml/min; Globulin 2.8 g/dL (2.2-4.2); Glucose 86 mg/dL (74-106); Potassium 3.5 mmol/L (3.5-5.1); Sodium Level 141 mmol/L (136-145); Total Bilirubin < 0.10 mg/dL (0.20-1.00)
--- NOTE | 2018-03-18 07:54 | PCM.PN.SRG ---
Patient Problems: Active and Suspected Problems (Last Updated 03/16/18 @ 04:29 by Maura Ding MD) Right lower quadrant abdominal pain (Acute) Ileus (Acute) 16 weeks gestation of (Acute) Nausea and vomiting (Acute) Subjective: Patient tolerated full liquids however she states she did get nausea medicine afterwards but she has been sipping on water and Gatorade throughout the day and no emesis, still complains of right-sided abdominal pain did walk a couple times in the [place] yesterday denies any flatus or bowel movements. She did get several doses of Dilaudid as well as some tramadol. - Physical Exam General: Alert, Oriented x3, Cooperative, No apparent distress HEENT: Atraumatic Abdomen: Soft, Gravid, Distended - Mild, Tender - Diffusely mainly in the right lower and suprapubic area, no guarding or rebound Extremities: No edema Vital Signs Temp Pulse Resp BP Pulse Ox 98.0 F 64 15 93/49 L 97 03/18/18 03:00 03/18/18 03:00 03/18/18 03:00 03/18/18 03:00 03/18/18 03:00 Oxygen Delivery Method Room Air Weight: 131 lb 6.328 oz Body Mass Index (BMI) 23.5 Intake and Output for Last 24 Hours 03/16/18 03/17/18 03/18/18 23:59 23:59 23:59 Intake Total 1252 / 1252 4080 / 4080 731 / 731 Output Total 1000 / 1000 3200 / 3200 1600 / 1600 Balance 252 / 252 880 / 880 -869 / -869 Laboratory Tests Past 24 Hrs 03/18/18 03/18/18 06:06 06:06 WBC 4.5 RBC 3.17 L Hgb 10.3 L Hct 30.7 L MCV 96.8 MCH 32.5 H MCHC 33.6 RDW 13.3 RDW Differential 45.2 H Plt Count 200 MPV 10.9 Immature Gran % (Auto) 0.200 Neut % (Auto) 35.6 L Lymph % (Auto) 43.8 H [place] % (Auto) 14.3 H Eos % (Auto) 5.7 H Baso % (Auto) 0.4 Absolute Neuts (auto) 1.6 L Absolute Lymphs (auto) 1.99 Total Counted Not Reportable Sodium 141 Potassium 3.5 Chloride 112 H Carbon Dioxide 21.0 Anion Gap 8 BUN 1 L Creatinine 0.31 L Estim Creat Clear Calc 245.81 Est GFR (MDRD) Af Amer 350 Est GFR (MDRD) Non-Af 289 BUN/Creatinine Ratio 3.3 L Glucose 86 Calcium 7.9 L Total Bilirubin < 0.10 L AST 25 ALT 24 Alkaline Phosphatase 50 Total Protein 5.0 L Albumin 2.2 L Globulin 2.8 Albumin/Globulin Ratio 0.8 L Medical Necessity - Tobacco Use Smoking Status: Never smoker Tobacco Use: Non-smoker Assessment/Plan All Active Problems (Last Updated 03/16/18 @ 04:29 by Maura Ding MD) Right lower quadrant abdominal pain (Acute) Ileus (Acute) 16 weeks gestation of (Acute) Nausea and vomiting (Acute) 23-year-old female 16 weeks , abdominal pain-ileus, nausea and vomiting 1. Patient did tolerate clears as well as full liquids and has been sipping however she is still denies any bowel movements yesterday and no emesis. However she did get several doses of narcotics. Discussed with Dr. Valenzuela will plan to stop all narcotics and will also give her a soapsuds enema. Alejandra Chacon M.D. Pager: [phone] [facility] [address] [place] [address], [address] [place] [address] Office: [phone]
[2018-03-18] MEDS: Acetaminophen 500 MG Tablet PO ×3 (08:06→17:23)
[2018-03-18 08:08] VITALS: BP 96/58; PULSE 57; RESP 16; TEMP 36.7; O2SAT 100
--- NOTE | 2018-03-18 08:15 | PCM.PN.OB ---
Patient Problems: Active and Suspected Problems (Last Updated 03/16/18 @ 04:29 by Maura Ding MD) Right lower quadrant abdominal pain (Acute) Ileus (Acute) 16 weeks gestation of (Acute) Nausea and vomiting (Acute) - Physical Exam Vital Signs Temp Pulse Resp BP Pulse Ox 98.1 F 57 L 16 96/58 L 100 03/18/18 08:08 03/18/18 08:08 03/18/18 08:08 03/18/18 08:08 03/18/18 08:08 Oxygen Delivery Method Room Air Weight: 59.6 kg Body Mass Index (BMI) 23.5 Intake and Output for Last 24 Hours 03/16/18 03/17/18 03/18/18 23:59 23:59 23:59 Intake Total 1252 / 1252 4080 / 4080 731 / 731 Output Total 1000 / 1000 3200 / 3200 1600 / 1600 Balance 252 / 252 880 / 880 -869 / -869 Laboratory Tests Past 24 Hrs 03/18/18 03/18/18 06:06 06:06 WBC 4.5 RBC 3.17 L Hgb 10.3 L Hct 30.7 L MCV 96.8 MCH 32.5 H MCHC 33.6 RDW 13.3 RDW Differential 45.2 H Plt Count 200 MPV 10.9 Immature Gran % (Auto) 0.200 Neut % (Auto) 35.6 L Lymph % (Auto) 43.8 H [place] % (Auto) 14.3 H Eos % (Auto) 5.7 H Baso % (Auto) 0.4 Absolute Neuts (auto) 1.6 L Absolute Lymphs (auto) 1.99 Total Counted Not Reportable Sodium 141 Potassium 3.5 Chloride 112 H Carbon Dioxide 21.0 Anion Gap 8 BUN 1 L Creatinine 0.31 L Estim Creat Clear Calc 245.81 Est GFR (MDRD) Af Amer 350 Est GFR (MDRD) Non-Af 289 BUN/Creatinine Ratio 3.3 L Glucose 86 Calcium 7.9 L Total Bilirubin < 0.10 L AST 25 ALT 24 Alkaline Phosphatase 50 Total Protein 5.0 L Albumin 2.2 L Globulin 2.8 Albumin/Globulin Ratio 0.8 L Medical Necessity - Tobacco Use Smoking Status: Never smoker Tobacco Use: Non-smoker Assessment/Plan All Active Problems (Last Updated 03/16/18 @ 04:29 by Maura Ding MD) Right lower quadrant abdominal pain (Acute) Ileus (Acute) 16 weeks gestation of (Acute) Nausea and vomiting (Acute)
--- NOTE | 2018-03-18 08:30 | PCM.PN.OB ---
Patient Problems: Active and Suspected Problems (Last Updated 03/16/18 @ 04:29 by Maura Ding MD) Right lower quadrant abdominal pain (Acute) Ileus (Acute) 16 weeks gestation of (Acute) Nausea and vomiting (Acute) Subjective: HD#3 Abdominal pain. H/o IBS. Severe N/V at admission 16 wks EGA States bowel movement yesterday after suppository, very loose and watery. + flatus. Still with cramping abdominal pain. Has had extensive workup with PCP at [facility] and states has had testing for Celiac and for Crohn's and testing was all inconclusive. She has been on too numerous to recall medications for her bowel in the past. States Bentyl has not helped. Was on Zofran earlier in but off this and using bid Vit B6 for N/V prevention States her parents are both ill with flu but not having similar symptoms to hers. Frustrated as feels no progress and nothing being done. She is no longer nauseated or vomiting. no diarrhea except loose stool after the suppository yesterday. Diet has also been advanced to full liquid which she is tolerating. CT done was negative WBCs normal -- not likely appendicitis. (reminded her that there was been some progress) Objective: Sitting up in bed, talking with her mother (who has the flu) - Physical Exam General: Alert, Oriented x3, Cooperative, No apparent distress HEENT: Atraumatic Neck: Supple Abdomen: Soft, Gravid - nonsurgical. Extremities: No clubbing, No cyanosis, No edema Neurological: Cranial nerves II-XII grossly intact Psych/Mental Status: Normal Affect Vital Signs Temp Pulse Resp BP Pulse Ox 98.1 F 57 L 16 96/58 L 100 03/18/18 08:08 03/18/18 08:08 03/18/18 08:08 03/18/18 08:08 03/18/18 08:08 Oxygen Delivery Method Room Air Weight: 59.6 kg Body Mass Index (BMI) 23.5 Intake and Output for Last 24 Hours 03/16/18 03/17/18 03/18/18 23:59 23:59 23:59 Intake Total 1252 / 1252 4080 / 4080 731 / 731 Output Total 1000 / 1000 3200 / 3200 1600 / 1600 Balance 252 / 252 880 / 880 -869 / -869 Laboratory Tests Past 24 Hrs 03/18/18 03/18/18 06:06 06:06 WBC 4.5 RBC 3.17 L Hgb 10.3 L Hct 30.7 L MCV 96.8 MCH 32.5 H MCHC 33.6 RDW 13.3 RDW Differential 45.2 H Plt Count 200 MPV 10.9 Immature Gran % (Auto) 0.200 Neut % (Auto) 35.6 L Lymph % (Auto) 43.8 H [place] % (Auto) 14.3 H Eos % (Auto) 5.7 H Baso % (Auto) 0.4 Absolute Neuts (auto) 1.6 L Absolute Lymphs (auto) 1.99 Total Counted Not Reportable Sodium 141 Potassium 3.5 Chloride 112 H Carbon Dioxide 21.0 Anion Gap 8 BUN 1 L Creatinine 0.31 L Estim Creat Clear Calc 245.81 Est GFR (MDRD) Af Amer 350 Est GFR (MDRD) Non-Af 289 BUN/Creatinine Ratio 3.3 L Glucose 86 Calcium 7.9 L Total Bilirubin < 0.10 L AST 25 ALT 24 Alkaline Phosphatase 50 Total Protein 5.0 L Albumin 2.2 L Globulin 2.8 Albumin/Globulin Ratio 0.8 L Medical Necessity - Tobacco Use Smoking Status: Never smoker Tobacco Use: Non-smoker Assessment/Plan All Active Problems (Last Updated 03/16/18 @ 04:29 by Maura Ding MD) Right lower quadrant abdominal pain (Acute) Ileus (Acute) 16 weeks gestation of (Acute) Nausea and vomiting (Acute) 16 + wk EGA . H/O chronic bowel issues, likely IBS. With extensive workup in past. diet now at full liquids and seems to be tolerating, but with continued cramping pain. States [employer] did not work for her in the past. -- appreciate general surgeon evaluation. nonsurgical issue likely. CT negative for appendicitis. -- Consult hospitalist for additional evaluation and management of medications. Trial of antispasmodic. Continue care.
--- NOTE | 2018-03-18 09:47 | PCM.PN.HOSP ---
Patient Problems: Active and Suspected Problems (Last Updated 03/16/18 @ 04:29 by Maura Ding MD) Right lower quadrant abdominal pain (Acute) Ileus (Acute) 16 weeks gestation of (Acute) Nausea and vomiting (Acute) Subjective: Medical consult for IBS management This is a 23 y/o female with history of IBS diagnosed 2-4 years ago in the [facility]. She had colonoscopies and EGD done. She has not followed up in 2 years. Reportedly, she has been managing her abdominal symptoms; predorminantly constipation with stool softners. She was admitted on 03/15/18 with abdominal pain, nausea and vomiting. She is G1Po 16 week . She had a CT scan of the abdomen done which showed normal appendix but ileus. She has been seen by gynecology and general surgery. She complains of persistent right sided pain, nausea and vomiting. She had a bowel movement yestreday after suppository bisacody and has been tolerating a liquid diet. Patient complains of persistent sharp right sided pain, that comes and goes. She denied fever, chills, dysuria or frequency. Her vital signs are stable temperature 98.1 F, heart rate 57, blood pressure 96/58, respiratory rate 16, saturating 100% on room air Admitting blood work shows a RBC count of 4.5, improved from 13.4 on admission, hemoglobin is 10.3, platelet count is 200, sodium is 141, potassium 3.5, Cl 112, bicarbonate is 21, BUN is 1, creatinine 0.31. UA is unremarkable. CT abdomen shows paralytic ileus of small intestines with diffuse distention. Vitals/I&O's: Vital Signs Temp Pulse Resp BP Pulse Ox 98.1 F 57 L 16 96/58 L 100 03/18/18 08:08 03/18/18 08:08 03/18/18 08:08 03/18/18 08:08 03/18/18 08:08 Oxygen Delivery Method Room Air Weight: 59.6 kg Body Mass Index (BMI) 23.5 Intake and Output for Last 24 Hours 03/16/18 03/17/18 03/18/18 23:59 23:59 23:59 Intake Total 1252 / 1252 4080 / 4080 731 / 731 Output Total 1000 / 1000 3200 / 3200 1600 / 1600 Balance 252 / 252 880 / 880 -869 / -869 General: Alert, Oriented x3, Cooperative, - - in mild distress HEENT: Atraumatic, PERRLA, EOMI, Normocephalic Oral: Moist Mucosa Neck: Supple, No JVD, Negative Carotid Bruits Lungs: Clear to auscultation, Normal air movement Cardiovascular: Regular rate, Regular Rhythm, Normal S1, Normal S2, No murmurs Abdomen: Bowel Sounds Present, Soft, Tender - right sided - upper and lower quadrant tenderness, no guarding, gravid uterus Extremities: No edema, Capillary Refill Less than 3 Seconds Skin: No rashes, No breakdown Musculoskeletal: No Tenderness to Palpation of Joints or Extremities Lymphatic: No Cervical, Supraclavicular, or Inguinal Adenopathy Neurological: Cranial nerves II-XII grossly intact, Neuro grossly intact Psych/Mental Status: Normal Affect, Appropriate Laboratory Results 03/18/18 06:06: WBC 4.5, RBC 3.17 L, Hgb 10.3 L, Hct 30.7 L, MCV 96.8, MCH 32.5 H, MCHC 33.6, RDW 13.3, RDW Differential 45.2 H, Plt Count 200, MPV 10.9, Immature Gran % (Auto) 0.200, Neut % (Auto) 35.6 L, Lymph % (Auto) 43.8 H, [place] % (Auto) 14.3 H, Eos % (Auto) 5.7 H, Baso % (Auto) 0.4, Absolute Neuts (auto) 1.6 L, Absolute Lymphs (auto) 1.99, Total Counted Not Reportable 03/18/18 06:06: Sodium 141, Potassium 3.5, Chloride 112 H, Carbon Dioxide 21.0, Anion Gap 8, BUN 1 L, Creatinine 0.31 L, Estim Creat Clear Calc 245.81, Est GFR (MDRD) Af Amer 350, Est GFR (MDRD) Non-Af 289, BUN/Creatinine Ratio 3.3 L, Glucose 86, Calcium 7.9 L, Total Bilirubin < 0.10 L, AST 25, ALT 24, Alkaline Phosphatase 50, Total Protein 5.0 L, Albumin 2.2 L, Globulin 2.8, Albumin/Globulin Ratio 0.8 L Current Medications Acetaminophen (Tylenol) 500 mg PO Q4H PRN PRN PRN Reason: Temp > 100.4 F Last Admin: 03/18/18 08:06 Dose: 500 mg Bisacodyl (Dulcolax) 10 mg RECTAL DAILY PRN PRN Reason: Constipation Hyoscyamine Sulfate (Levsin/Sl) 0.125 mg PO Q4H PRN PRN PRN Reason: Cramp Famotidine 20 mg/ Sodium (Chloride) 10 mls @ 300 mls/hr IV DAILY [facility] Last Admin: 03/17/18 09:29 Dose: 300 mls/hr Dextrose/Sodium Chloride (Dextrose 5%/0.9% Nacl) 1,000 mls @ 150 mls/hr IV .Q6H40M [facility] Last Admin: 03/18/18 04:14 Dose: 150 mls/hr Metoclopramide HCl (Reglan) 2.5 mg IV Q6H [facility] Last Admin: 03/18/18 05:19 Dose: 2.5 mg Ondansetron HCl (Zofran) 4 mg IV Q8H PRN PRN PRN Reason: NAUSEA Last Admin: 03/18/18 01:06 Dose: 4 mg Simethicone (Mylicon) 80 mg PO [facility] Last Admin: 03/18/18 08:07 Dose: 80 mg Sodium Chloride () 5 - 30 ml IV UD PRN PRN Reason: SALINE FLUSH Last Admin: 03/17/18 17:15 Dose: 10 ml Medical Necessity - Tobacco Use Smoking Status: Never smoker Tobacco Use: Non-smoker Assessment/Plan All Active Problems (Last Updated 03/16/18 @ 04:29 by Maura Ding MD) Right lower quadrant abdominal pain (Acute) Ileus (Acute) 16 weeks gestation of (Acute) Nausea and vomiting (Acute) 23-year-old 1 para 0, 16 weeks , history of IBS, not following gastroenterology in the outpatient, comes in complains of right abdominal pain. 1. IBS, likely constipation predorminant, patient used to follow with gastroenterology in the outpatient, Dr. Thacker, has not followed up in 2 years Status post reported colonoscopy and endoscopy Plan: [facility] records from gastroenterology office, certified low vision therapist consult for FODMAP diet, peppermint oil capsules([facility] pharmacy does not carry that), Metamucil daily, holding for diarrhea, dicyclomine 10mg prn qid, cannot start patient on Linzess on account of reported animal toxicity in . Patient will need to follow-up with GI in the outpatient. 2. Right sided abdominal pain, waxing and waning, CT abd/pelvis showed no acute abnormality except for paralytic ileus, general surgery consulted Plan: Continue per general surgery recommendations 3. , 16 weeks , being managed by OBGYN Code Visit Inpatient E&M: 38238 Subs Hosp L3
[2018-03-18] MEDS: 0.9% NaCl Peripheral Flush Adult/Peds IV ×3 (10:40→21:31)
[2018-03-18 14:00] VITALS: BP 95/59; PULSE 63; RESP 18; TEMP 36.9; O2SAT 100
--- NOTE | 2018-03-18 14:27 | PCA ---
faxed over to [facility] authorization for release of medical records for dr. segovia, have yet received request back
[2018-03-18] MEDS: Hyoscyamine Sulfate 0.125 MG Tablet PO (17:24)
--- NOTE | 2018-03-18 17:44 | PN.OBGYN_ITS ---
Patient Problems: Active and Suspected Problems (Last Updated 03/16/18 @ 04:29 by Maura Ko MD) Right lower quadrant abdominal pain (Acute) Ileus (Acute) 16 weeks gestation of (Acute) Nausea and vomiting (Acute) Subjective: HD#3 IBS exacerbation. Continued c/o cramping along sides. Tolerated full liquid and would like regular diet now. Spouse here and mentions she has not been on her usual medications (prozac 80 mg daily and Bupropion SR 150 mg daily. States tylenol is not working for her pain. Advised to try antispasmodic ordered. Dietary consult ordered also. Unable to get records from Dr. Thacker (from two years ago) re her workup. Declined the enema offered. Pt without vomiting. May elect to go home with outpatient management , f/u with PCP or technology lead re this chronic issue. - Physical Exam General: Alert, Oriented x3, Cooperative, No apparent distress HEENT: Atraumatic Neck: Supple Abdomen: Soft - normoactive bowel sounds noted., Gravid - nonsurgical Extremities: No clubbing, No cyanosis, No edema Psych/Mental Status: Normal Affect Vital Signs Temp Pulse Resp BP Pulse Ox 98.4 F 63 18 95/59 L 100 03/18/18 14:00 03/18/18 14:00 03/18/18 14:00 03/18/18 14:00 03/18/18 14:00 Oxygen Delivery Method Room Air Weight: 59.6 kg Body Mass Index (BMI) 23.5 Intake and Output for Last 24 Hours 03/16/18 03/17/18 03/18/18 23:59 23:59 23:59 Intake Total 1252 / 1252 4080 / 4080 2783 / 2783 Output Total 1000 / 1000 3200 / 3200 3600 / 3600 Balance 252 / 252 880 / 880 -817 / -817 Laboratory Tests Past 24 Hrs 03/18/18 03/18/18 06:06 06:06 WBC 4.5 RBC 3.17 L Hgb 10.3 L Hct 30.7 L MCV 96.8 MCH 32.5 H MCHC 33.6 RDW 13.3 RDW Differential 45.2 H Plt Count 200 MPV 10.9 Immature Gran % (Auto) 0.200 Neut % (Auto) 35.6 L Lymph % (Auto) 43.8 H [place] % (Auto) 14.3 H Eos % (Auto) 5.7 H Baso % (Auto) 0.4 Absolute Neuts (auto) 1.6 L Absolute Lymphs (auto) 1.99 Total Counted Not Reportable Sodium 141 Potassium 3.5 Chloride 112 H Carbon Dioxide 21.0 Anion Gap 8 BUN 1 L Creatinine 0.31 L Estim Creat Clear Calc 245.81 Est GFR (MDRD) Af Amer 350 Est GFR (MDRD) Non-Af 289 BUN/Creatinine Ratio 3.3 L Glucose 86 Calcium 7.9 L Total Bilirubin < 0.10 L AST 25 ALT 24 Alkaline Phosphatase 50 Total Protein 5.0 L Albumin 2.2 L Globulin 2.8 Albumin/Globulin Ratio 0.8 L Medical Necessity - Tobacco Use Smoking Status: Never smoker Tobacco Use: Non-smoker Assessment/Plan All Active Problems (Last Updated 03/16/18 @ 04:29 by Maura Ding MD) Right lower quadrant abdominal pain (Acute) Ileus (Acute) 16 weeks gestation of (Acute) Nausea and vomiting (Acute) 16 + wk EGA . H/O chronic bowel issues, likely IBS. With extensive workup in past. Diet now at full liquids advance to regular diet. Tolerating diet well, but with some cramping. Retry antispasmodic. Advised that narcotics best avoided due to further bowel effects. -- appreciate general surgeon evaluation. nonsurgical issue likely. CT negative for appendicitis. -- Appreciate hospitalist consultation also for evaluation and management of medications. Trial of antispasmodic. Resume Prozac and Bupropion as taken outpatient. Metamucil daily (watch for diarrhea as stated unable to tolerate with prior trial) If symptoms controlled on tylenol, antispasmodic consider dischg Continue care for now.
[2018-03-18 21:10] VITALS: BP 100/56; PULSE 55; RESP 16; TEMP 36.9; O2SAT 99
[2018-03-18] MEDS: FLUoxetine 20 MG Capsule 40 MG PO (21:27)
[2018-03-18] MEDS: buPROPion (SR) 150 MG Tablet.SA PO (21:27)
[2018-03-18] MEDS: Dicyclomine 10 MG Capsule PO (21:27)
[2018-03-19] MEDS: Ondansetron 4 MG/2 ML Vial IV (02:27)
[2018-03-19] MEDS: 0.9% NaCl Peripheral Flush Adult/Peds IV (02:27)
[2018-03-19] MEDS: Acetaminophen 500 MG Tablet PO ×2 (02:27→10:53)
[2018-03-19 02:34] VITALS: BP 99/58; PULSE 60; RESP 18; TEMP 36.9; O2SAT 100
[2018-03-19 05:31] LABS: Absolute Lymphocyte Count 2.09 X10^3/ul (0.83-4.51); Absolute Neutrophil Count 2.5 X10^3/uL (2.0-7.7); Basophil# 0.01 X10^3/uL; Basophil% 0.2 % (0-1); Eosinophil# 0.25 X10^3/uL; Eosinophils% 4.6 % (0-5); Hematocrit 33.5 % (37-47); Hemoglobin 11.3 g/dl (12.0-15.0); Lymphocyte # 2.09 X10^3/ul (4.0); Lymphocyte % 38.8 % (19-41); Mean Corp Hgb Conc 33.7 g/gl (32-36); Mean Corpuscular Hgb 32.6 pg (27.0-32.0); Mean Corpuscular Volume 96.5 fL (81-99); Mean Platelet Vol. 11.5 fl (6.2-12.0); Monocyte# 0.52 X10^3/uL; Monocyte% 9.7 % (0-10); Neutrophil % 46.5 % (47-70); Platelet Count 212 K/mm3 (150-450); RBC Distribution Width CV 13.3 % (11.6-14.6); RBC Distribution Width SD 45.4 fl (35.1-43.9); Red Blood Count 3.47 M/mm3 (4.2-5.4); White Blood Count 5.4 K/mm3 (4.4-11.0)
[2018-03-19 05:36] LABS: POSITIVE COUNT NO; POSITIVE DIFFERENTIAL NO; POSITIVE MORPHOLOGY NO
[2018-03-19] MEDS: Dextrose 5%/0.9% NaCl 1,000 ML 150 ML IV (05:43)
[2018-03-19 05:51] LABS: ALB/GLOB Ratio 0.8 RATIO (0.9-2.4); AST(SGOT) 30 U/L (15-37); Alanine Aminotransfer ALT/SGPT 33 U/L (13-56); Albumin, Serum 2.4 g/dL (3.2-5.0); Alkaline Phosphatase 70 U/L (45-117); Anion Gap 10 (5-15); BUN 3 mg/dL (7-18); BUN/Creat Ratio 7.3 RATIO (10-20); Calcium,Total 7.8 mg/dL (8.5-10.1); Chloride 110 mmol/L (98-107); Creatinine, Serum 0.41 mg/dL (0.55-1.02); EST Glomerular Filtration Rate 206 mL/min (>60); Est Glom Filt Rate - Afr Amer 249 mL/min (>60); Estimated Creatinine Clearance 185.85 ml/min; Globulin 3.1 g/dL (2.2-4.2); Glucose 92 mg/dL (74-106); Potassium 3.6 mmol/L (3.5-5.1); Protein, Total 5.5 g/dL (6.4-8.2); Sodium Level 142 mmol/L (136-145)
--- NOTE | 2018-03-19 07:33 | PCM.PN.HOSP ---
Patient Problems: Active and Suspected Problems (Last Updated 03/16/18 @ 04:29 by Maura Ding MD) Right lower quadrant abdominal pain (Acute) Ileus (Acute) 16 weeks gestation of (Acute) Nausea and vomiting (Acute) Subjective: Patient was seen and examined. No acute events overnight. Still has right sided sharp pain, starts in RLQ, radiates up her RUQ. Discussed with Dr. Maria, plan is discharge today if patient tolerates a diet Objective: Physical exam: General: Alert, Oriented x3, Cooperative, - - in mild distress HEENT: Atraumatic, PERRLA, EOMI, Normocephalic Oral: Moist Mucosa Neck: Supple, No JVD, Negative Carotid Bruits Lungs: Clear to auscultation, Normal air movement Cardiovascular: Regular rate, Regular Rhythm, Normal S1, Normal S2, No murmurs Abdomen: Bowel Sounds Present, Soft, Tender - right sided - upper and lower quadrant tenderness, no guarding, gravid uterus Extremities: No edema, Capillary Refill Less than 3 Seconds Skin: No rashes, No breakdown Musculoskeletal: No Tenderness to Palpation of Joints or Extremities Lymphatic: No Cervical, Supraclavicular, or Inguinal Adenopathy Neurological: Cranial nerves II-XII grossly intact, Neuro grossly intact Psych/Mental Status: Normal Affect, Appropriate Laboratory Result Vitals/I&O's: Vital Signs Temp Pulse Resp BP Pulse Ox 98.5 F 60 18 99/58 L 100 03/19/18 02:34 03/19/18 02:34 03/19/18 02:34 03/19/18 02:34 03/19/18 02:34 Oxygen Delivery Method Room Air Weight: 58.8 kg Body Mass Index (BMI) 23.5 Intake and Output for Last 24 Hours 03/17/18 03/18/18 03/19/18 23:59 23:59 23:59 Intake Total 4080 / 4080 2783 / 2783 2418 / 2418 Output Total 3200 / 3200 3600 / 3600 3250 / 3250 Balance 880 / 880 -817 / -817 -832 / -832 Laboratory Results 03/19/18 05:00: WBC 5.4, RBC 3.47 L, Hgb 11.3 L, Hct 33.5 L, MCV 96.5, MCH 32.6 H, MCHC 33.7, RDW 13.3, RDW Differential 45.4 H, Plt Count 212, MPV 11.5, Immature Gran % (Auto) 0.200, Neut % (Auto) 46.5 L, Lymph % (Auto) 38.8, [place] % (Auto) 9.7, Eos % (Auto) 4.6, Baso % (Auto) 0.2, Absolute Neuts (auto) 2.5, Absolute Lymphs (auto) 2.09, Total Counted Not Reportable 03/19/18 05:00: Sodium 142, Potassium 3.6, Chloride 110 H, Carbon Dioxide 22.0, Anion Gap 10, BUN 3 L, Creatinine 0.41 L, Estim Creat Clear Calc 185.85, Est GFR (MDRD) Af Amer 249, Est GFR (MDRD) Non-Af 206, BUN/Creatinine Ratio 7.3 L, Glucose 92, Calcium 7.8 L, Total Bilirubin 0.10 L, AST 30, ALT 33, Alkaline Phosphatase 70, Total Protein 5.5 L, Albumin 2.4 L, Globulin 3.1, Albumin/Globulin Ratio 0.8 L Current Medications Acetaminophen (Tylenol) 500 mg PO Q4H PRN PRN PRN Reason: Temp > 100.4 F Last Admin: 03/19/18 02:27 Dose: 500 mg Bisacodyl (Dulcolax) 10 mg RECTAL DAILY PRN PRN Reason: Constipation Bupropion HCl (Wellbutrin Sr (150mg Tablets)) 150 mg PO QHS [facility] Last Admin: 03/18/18 21:27 Dose: 150 mg Dicyclomine HCl (Bentyl) 10 mg PO TID PRN PRN Reason: Cramp Last Admin: 03/18/18 21:27 Dose: 10 mg Fluoxetine HCl (Prozac) 40 mg PO BID [facility] Last Admin: 03/18/18 21:27 Dose: 40 mg Dextrose/Sodium Chloride (Dextrose 5%/0.9% Nacl) 1,000 mls @ 150 mls/hr IV .Q6H40M [facility] Last Admin: 03/19/18 05:43 Dose: 150 mls/hr Famotidine 20 mg/ Sodium (Chloride) 10 mls @ 300 mls/hr IV Q12 [facility] Last Admin: 10/01/18 21:31 Dose: 300 mls/hr Ondansetron HCl (Zofran) 4 mg IV Q8H PRN PRN PRN Reason: NAUSEA Last Admin: 03/19/18 02:27 Dose: 4 mg Psyllium Hydrophilic Mucilloid (Metamucil) 1 packet PO DAILY [facility] Simethicone (Mylicon) 80 mg PO [facility] Last Admin: 03/18/18 21:25 Dose: 80 mg Sodium Chloride () 5 - 30 ml IV UD PRN PRN Reason: SALINE FLUSH Last Admin: 03/19/18 02:27 Dose: 10 ml Medical Necessity - Tobacco Use Smoking Status: Never smoker Tobacco Use: Non-smoker Assessment/Plan All Active Problems (Last Updated 03/16/18 @ 04:29 by Maura Ding MD) Right lower quadrant abdominal pain (Acute) Ileus (Acute) 16 weeks gestation of (Acute) Nausea and vomiting (Acute) 23-year-old 1 para 0, 16 weeks , history of IBS, not following gastroenterology in the outpatient, comes in complains of right abdominal pain. 1. IBS, likely constipation predorminant, discomfort persists, started on FODMAP diet, refused metamucil this morning, been on Tylenol and Dicyclomine. Advised to follow-up with GI. 2. Right sided abdominal pain, waxing and waning, CT abd/pelvis showed no acute abnormality except for paralytic ileus, general surgery consulted being managed conservatively. 3. , 16 weeks , being managed by OBGYN Thank you for consult. Code Visit Inpatient E&M: 81333 Subs Hosp L2
--- NOTE | 2018-03-19 08:08 | PN.SURG_ITS ---
Patient Problems: Active and Suspected Problems (Last Updated 03/16/18 @ 04:29 by Maura Ko MD) Right lower quadrant abdominal pain (Acute) Ileus (Acute) 16 weeks gestation of (Acute) Nausea and vomiting (Acute) Subjective: Patient tolerated regular diet for supper did ask for some nausea medicine at about midnight, positive flatus, getting Tylenol for pain. - Physical Exam General: Alert, Oriented x3, Cooperative, No apparent distress Abdomen: Soft, Non-Distended, Gravid, Tender - Mild diffuse greater in lower abdomen, no peritoneal signs Vital Signs Temp Pulse Resp BP Pulse Ox 98.5 F 60 18 99/58 L 100 03/19/18 02:34 03/19/18 02:34 03/19/18 02:34 03/19/18 02:34 03/19/18 02:34 Oxygen Delivery Method Room Air Weight: 129 lb 10.109 oz Body Mass Index (BMI) 23.5 Intake and Output for Last 24 Hours 03/17/18 03/18/18 03/19/18 23:59 23:59 23:59 Intake Total 4080 / 4080 2783 / 2783 2418 / 2418 Output Total 3200 / 3200 3600 / 3600 3250 / 3250 Balance 880 / 880 -817 / -817 -832 / -832 Laboratory Tests Past 24 Hrs 03/19/18 03/19/18 05:00 05:00 WBC 5.4 RBC 3.47 L Hgb 11.3 L Hct 33.5 L MCV 96.5 MCH 32.6 H MCHC 33.7 RDW 13.3 RDW Differential 45.4 H Plt Count 212 MPV 11.5 Immature Gran % (Auto) 0.200 Neut % (Auto) 46.5 L Lymph % (Auto) 38.8 [place] % (Auto) 9.7 Eos % (Auto) 4.6 Baso % (Auto) 0.2 Absolute Neuts (auto) 2.5 Absolute Lymphs (auto) 2.09 Total Counted Not Reportable Sodium 142 Potassium 3.6 Chloride 110 H Carbon Dioxide 22.0 Anion Gap 10 BUN 3 L Creatinine 0.41 L Estim Creat Clear Calc 185.85 Est GFR (MDRD) Af Amer 249 Est GFR (MDRD) Non-Af 206 BUN/Creatinine Ratio 7.3 L Glucose 92 Calcium 7.8 L Total Bilirubin 0.10 L AST 30 ALT 33 Alkaline Phosphatase 70 Total Protein 5.5 L Albumin 2.4 L Globulin 3.1 Albumin/Globulin Ratio 0.8 L Medical Necessity - Tobacco Use Smoking Status: Never smoker Tobacco Use: Non-smoker Assessment/Plan All Active Problems (Last Updated 03/16/18 @ 04:29 by Maura Ding MD) Right lower quadrant abdominal pain (Acute) Ileus (Acute) 16 weeks gestation of (Acute) Nausea and vomiting (Acute) 23-year-old female 16 weeks , abdominal pain-ileus, nausea and vomiting 1. She was able to tolerate a regular diet and is having flatus. No acute surgical intervention. Recommend follow-up with GI as an outpatient. Alejandra Chacon M.D. Pager: [phone] [facility] [address] [place] [address], [address] [place] [address] Office: [phone]
--- NOTE | 2018-03-19 08:52 | PN.OBGYN_ITS ---
Patient Problems: Active and Suspected Problems (Last Updated 03/16/18 @ 04:29 by Maura Ko MD) Right lower quadrant abdominal pain (Acute) Ileus (Acute) 16 weeks gestation of (Acute) Nausea and vomiting (Acute) Subjective: HD# Feels like I got hit by a truck Cramping all over abdomen, not normal cramping for her. States very poor sleep. Tolerated regular diet. Passing flatus. no BM. plans to go home now, DIONI. - Physical Exam General: Oriented x3, Cooperative, No apparent distress HEENT: Atraumatic Neck: Supple Abdomen: Soft - minimally tender throughout, diffuse. K pad in use. Gravid. Extremities: No clubbing, No cyanosis, No edema Psych/Mental Status: Normal Affect Vital Signs Temp Pulse Resp BP Pulse Ox 98.5 F 60 18 99/58 L 100 03/19/18 02:34 03/19/18 02:34 03/19/18 02:34 03/19/18 02:34 03/19/18 02:34 Oxygen Delivery Method Room Air Weight: 58.8 kg Body Mass Index (BMI) 23.5 Intake and Output for Last 24 Hours 03/17/18 03/18/18 03/19/18 23:59 23:59 23:59 Intake Total 4080 / 4080 2783 / 2783 2418 / 2418 Output Total 3200 / 3200 3600 / 3600 3250 / 3250 Balance 880 / 880 -817 / -817 -832 / -832 Laboratory Tests Past 24 Hrs 03/19/18 03/19/18 05:00 05:00 WBC 5.4 RBC 3.47 L Hgb 11.3 L Hct 33.5 L MCV 96.5 MCH 32.6 H MCHC 33.7 RDW 13.3 RDW Differential 45.4 H Plt Count 212 MPV 11.5 Immature Gran % (Auto) 0.200 Neut % (Auto) 46.5 L Lymph % (Auto) 38.8 [place] % (Auto) 9.7 Eos % (Auto) 4.6 Baso % (Auto) 0.2 Absolute Neuts (auto) 2.5 Absolute Lymphs (auto) 2.09 Total Counted Not Reportable Sodium 142 Potassium 3.6 Chloride 110 H Carbon Dioxide 22.0 Anion Gap 10 BUN 3 L Creatinine 0.41 L Estim Creat Clear Calc 185.85 Est GFR (MDRD) Af Amer 249 Est GFR (MDRD) Non-Af 206 BUN/Creatinine Ratio 7.3 L Glucose 92 Calcium 7.8 L Total Bilirubin 0.10 L AST 30 ALT 33 Alkaline Phosphatase 70 Total Protein 5.5 L Albumin 2.4 L Globulin 3.1 Albumin/Globulin Ratio 0.8 L Medical Necessity - Tobacco Use Smoking Status: Never smoker Tobacco Use: Non-smoker Assessment/Plan All Active Problems (Last Updated 03/16/18 @ 04:29 by Maura Ding MD) Right lower quadrant abdominal pain (Acute) Ileus (Acute) 16 weeks gestation of (Acute) Nausea and vomiting (Acute) 16 + wk EGA . H/O chronic bowel issues, likely IBS. With extensive workup in past. Regular diet last night, but now with more severe cramping. Return diet to full liquids to reg as tolerated. 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 IBS dietary guidance needed. Retry antispasmodic. Advised that narcotics best avoided due to further bowel effects. -- appreciate general surgeon evaluation. nonsurgical issue Agree with continued outpt management. -- Appreciate hospitalist consultation also for evaluation and management of medications. After circuit rider input, likely dischg home later today to manage outpatient. Trial of antispasmodic. Pt not taking, states does not work. Started on Metamucil yesterday also. Prozac and Bupropion resumed. Metamucil daily (watch for diarrhea as stated unable to tolerate with prior trial) If symptoms controlled on tylenol, antispasmodic consider dischg later today. Continue care for now.
[2018-03-19 09:02] VITALS: BP 103/64; PULSE 63; RESP 16; TEMP 36.8; O2SAT 100
[2018-03-19] MEDS: Psyllium 1 PACKET PO (09:05)
[2018-03-19] MEDS: FLUoxetine 20 MG Capsule 40 MG PO (09:06)
--- NOTE | 2018-03-19 09:18 | NURSING ---
heart tones obtained 131.
--- NOTE | 2018-03-19 13:56 | PCM.PN.BLA ---
Progress Note ADDENDUM: Pt has requested dischg home. Recommend wait to leave until security control center operator consult re IBS diet. Pt has made appt with GI Dr Yu for APRIL. Dischg order written.
--- NOTE | 2018-03-19 13:57 | PN_ITS ---
Progress Note ADDENDUM: Pt has requested dischg home. Recommend wait to leave until residential service technician consult re IBS diet. Pt has made appt with GI Dr Yu for APRIL. Dischg order written.
--- NOTE | 2018-03-19 14:35 | PCM.DC ---
- Discharge Diagnoses Current Active Problems: Current Active and Chronic Problems (Last Updated 03/16/18 @ 04:29 by Maura Ding MD) Right lower quadrant abdominal pain (Acute) Ileus (Acute) 16 weeks gestation of (Acute) Nausea and vomiting (Acute) You will use the following diet at home:: Other - Follow diet as recommended by the revenue enforcement agent for irritable bowel syndrome. Avoiding foods likely to be gas forming Your food should be the consistency of: Regular Discharge Activity: Return to Normal Activity - as tolerated. May resume sexual activity in: No Restrictions - when comfortable Weight Bearing Status: Weight bearing as tolerated - limit to 20 pounds or less for . Additional Activity Instructions:: walk frequently to help with gas. Call your doctor if you observe: Fever of 101 or Higher, Inability to have a bowel movement, Uncontrolled pain Allergies/Adverse Reactions: Allergies latex Allergy (Verified 03/15/18 22:25) Rash Medications to take at Discharge Fluoxetine HCl 80 mg PO QHS 03/15/18 Ranitidine [Zantac] 150 mg PO QHS 03/15/18 buPROPion tablets [Wellbutrin tablets] 100 mg PO QHS 03/15/18 [place]-3 Fatty Acids/Fish Oil [[place] 3 1,000 mg Softgel] 1 cap PO DAILY 03/16/18 Pnv No.122/Iron/Folic Acid [ Multi Tablet] 1 tab PO QHS 03/16/18 Acetaminophen [Tylenol] 500 mg PO Q4H PRN PRN tablet 03/19/18 Dicyclomine HCl [Bentyl] 10 mg PO TID PRN #30 capsule 03/19/18 Fluoxetine [Prozac] 40 mg PO BID capsule 03/19/18 Ondansetron [Zofran] 4 mg IV Q8H PRN PRN vial 03/19/18 Psyllium [Metamucil] 1 packet PO DAILY packet 03/19/18 SimETHICONE [Mylicon] 80 mg PO PCHS tablet 03/19/18 buPROPion SR [Wellbutrin SR (150mg tablets)] 150 mg PO QHS tablet.sa 03/19/18 The following prescriptions were given: Dicyclomine HCl [Bentyl] 10 mg PO TID PRN #30 capsule PRN Reason: Cramp Primary Care Physician: Castro,Ashlie, OCCUPATIONAL THERAPY ASSISTANT-C [Primary Care Provider] - Test Results: Test results from this visit will be discussed in further detail at your follow-up appointment, if applicable. Please Follow Up With: Camila Maria MD - [phone] When: within 1 wk Proposed Discharge Date: 03/19/18
--- NOTE | 2018-03-19 14:40 | DCINST_ITS ---
- Discharge Diagnoses Current Active Problems: Current Active and Chronic Problems (Last Updated 03/16/18 @ 04:29 by Maura Ding MD) Right lower quadrant abdominal pain (Acute) Ileus (Acute) 16 weeks gestation of (Acute) Nausea and vomiting (Acute) You will use the following diet at home:: Other - Follow diet as recommended by the curriculum assistant principal for irritable bowel syndrome. Avoiding foods likely to be gas forming Your food should be the consistency of: Regular Discharge Activity: Return to Normal Activity - as tolerated. May resume sexual activity in: No Restrictions - when comfortable Weight Bearing Status: Weight bearing as tolerated - limit to 20 pounds or less for . Additional Activity Instructions:: walk frequently to help with gas. Call your doctor if you observe: Fever of 101 or Higher, Inability to have a bowel movement, Uncontrolled pain Allergies/Adverse Reactions: Allergies latex Allergy (Verified 03/15/18 22:25) Rash Medications to take at Discharge Fluoxetine HCl 80 mg PO QHS 03/15/18 Ranitidine [Zantac] 150 mg PO QHS 03/15/18 buPROPion tablets [Wellbutrin tablets] 100 mg PO QHS 03/15/18 [place]-3 Fatty Acids/Fish Oil [[place] 3 1,000 mg Softgel] 1 cap PO DAILY 03/16/18 Pnv No.122/Iron/Folic Acid [ Multi Tablet] 1 tab PO QHS 03/16/18 Acetaminophen [Tylenol] 500 mg PO Q4H PRN PRN tablet 03/19/18 Dicyclomine HCl [Bentyl] 10 mg PO TID PRN #30 capsule 03/19/18 Fluoxetine [Prozac] 40 mg PO BID capsule 03/19/18 Ondansetron [Zofran] 4 mg IV Q8H PRN PRN vial 03/19/18 Psyllium [Metamucil] 1 packet PO DAILY packet 03/19/18 SimETHICONE [Mylicon] 80 mg PO PCHS tablet 03/19/18 buPROPion SR [Wellbutrin SR (150mg tablets)] 150 mg PO QHS tablet.sa 03/19/18 The following prescriptions were given: Dicyclomine HCl [Bentyl] 10 mg PO TID PRN #30 capsule PRN Reason: Cramp Primary Care Physician: Castro,Ashlie, SENIOR NURSE MANAGER-C [Primary Care Provider] - Test Results: Test results from this visit will be discussed in further detail at your follow- up appointment, if applicable. Please Follow Up With: Camila Maria MD - [phone] When: within 1 wk Proposed Discharge Date: 03/19/18
[2018-03-19 15:35] VITALS: BP 101/69; PULSE 69; RESP 16; TEMP 36.8; O2SAT 100
--- NOTE | 2018-03-19 21:31 | PCM.DC.SUM ---
Discharge Date and Diagnosis Date of Admission: 03/16/18 Date of Discharge: 03/19/18 - Primary Discharge Diagnosis 16 wk EGA RLQ pain History of IBS Hospital Course and Treatment Imaging Results: CT negative for appendicitis. Ileus noted. Otherwise negative study. Operations: None Procedures: None Summary of Care Provided: The patient is a 23 year old female 16 + wk EGA, with history of IBS and an extensive workup in the past for abdominal pain by Dr. Yu (two years ago). Patient presented to [facility] ED with CC of severe N/V and unable to keep anything down. Ate at [employer] and developed RLQ pain and severe N/V shortly thereafter. She has had a prior cholecystectomy . Appendix remains. CBC showed slight elevation of WBCs. Pt admitted for serial exams, repeat labs. General surgery consulted., but nonsurgical abdomen with normalization of WBCs CT of pelvis and abdomen negative for appendicitis with mild ileus noted of small bowel. IV fluids, antiemetics given. Reglan, Dulcolax Diet slowly advanced. Tolerated regular diet with continued cramping. Hospitalist consulted re IBS: started on Metamucil, and Bentyl prn for cramping. Tariff Counsel consulted for IBS dietary guidance. Patient requested dischg home then. Discharged home for outpt follow up with design project manager. Discharge Activity: Return to Normal Activity - as tolerated. May resume sexual activity in: No Restrictions - when comfortable Weight Bearing Status: Weight bearing as tolerated - limit to 20 pounds or less for . Additional Activity Instructions:: walk frequently to help with gas. Call your doctor if you observe: Fever of 101 or Higher, Inability to have a bowel movement, Uncontrolled pain Home Medications: Medications to take at Discharge Fluoxetine HCl 80 mg PO QHS 03/15/18 Ranitidine [Zantac] 150 mg PO QHS 03/15/18 buPROPion tablets [Wellbutrin tablets] 100 mg PO QHS 03/15/18 [place]-3 Fatty Acids/Fish Oil [[place] 3 1,000 mg Softgel] 1 cap PO DAILY 03/16/18 Pnv No.122/Iron/Folic Acid [ Multi Tablet] 1 tab PO QHS 03/16/18 Acetaminophen [Tylenol] 500 mg PO Q4H PRN PRN tablet 03/19/18 Dicyclomine HCl [Bentyl] 10 mg PO TID PRN #30 capsule 03/19/18 Fluoxetine [Prozac] 40 mg PO BID capsule 03/19/18 Ondansetron [Zofran] 4 mg IV Q8H PRN PRN vial 03/19/18 Psyllium [Metamucil] 1 packet PO DAILY packet 03/19/18 SimETHICONE [Mylicon] 80 mg PO PCHS tablet 03/19/18 buPROPion SR [Wellbutrin SR (150mg tablets)] 150 mg PO QHS tablet.sa 03/19/18 Following Prescrptions Were Given to Patient: Dicyclomine HCl [Bentyl] 10 mg PO TID PRN #30 capsule PRN Reason: Cramp Primary Care Physician: Ashlie Erazo, ESTIMATION MANAGER-C [Primary Care Provider] - Please Follow Up With: Camila Maria MD - [phone] When: within 1 wk Medical Necessity - Tobacco Use Smoking Status: Never smoker Tobacco Use: Non-smoker Meaningful Use Info Meaningful Use Diagnoses (Choose all that apply): None applicable
--- NOTE | 2018-03-19 21:37 | DS.PCM_ITS ---
Discharge Date and Diagnosis Date of Admission: 03/16/18 Date of Discharge: 03/19/18 - Primary Discharge Diagnosis 16 wk EGA RLQ pain History of IBS Hospital Course and Treatment Imaging Results: CT negative for appendicitis. Ileus noted. Otherwise negative study. Operations: None Procedures: None Summary of Care Provided: The patient is a 23 year old female 16 + wk EGA, with history of IBS and an extensive workup in the past for abdominal pain by Dr. Yu (two years ago). Patient presented to [facility] ED with CC of severe N/V and unable to keep anything down. Ate at [employer] and developed RLQ pain and severe N/V shortly thereafter. She has had a prior cholecystectomy . Appendix remains. CBC showed slight elevation of WBCs. Pt admitted for serial exams, repeat labs. General surgery consulted., but nonsurgical abdomen with normalization of WBCs CT of pelvis and abdomen negative for appendicitis with mild ileus noted of small bowel. IV fluids, antiemetics given. Reglan, Dulcolax Diet slowly advanced. Tolerated regular diet with continued cramping. Hospitalist consulted re IBS: started on Metamucil, and Bentyl prn for cramping. Artist Color Separation consulted for IBS dietary guidance. Patient requested dischg home then. Discharged home for outpt follow up with superintendent local. Discharge Activity: Return to Normal Activity - as tolerated. May resume sexual activity in: No Restrictions - when comfortable Weight Bearing Status: Weight bearing as tolerated - limit to 20 pounds or less for . Additional Activity Instructions:: walk frequently to help with gas. Call your doctor if you observe: Fever of 101 or Higher, Inability to have a bowel movement, Uncontrolled pain Home Medications: Medications to take at Discharge Fluoxetine HCl 80 mg PO QHS 03/15/18 Ranitidine [Zantac] 150 mg PO QHS 03/15/18 buPROPion tablets [Wellbutrin tablets] 100 mg PO QHS 03/15/18 [place]-3 Fatty Acids/Fish Oil [[place] 3 1,000 mg Softgel] 1 cap PO DAILY 03/16/18 Pnv No.122/Iron/Folic Acid [ Multi Tablet] 1 tab PO QHS 03/16/18 Acetaminophen [Tylenol] 500 mg PO Q4H PRN PRN tablet 03/19/18 Dicyclomine HCl [Bentyl] 10 mg PO TID PRN #30 capsule 03/19/18 Fluoxetine [Prozac] 40 mg PO BID capsule 03/19/18 Ondansetron [Zofran] 4 mg IV Q8H PRN PRN vial 03/19/18 Psyllium [Metamucil] 1 packet PO DAILY packet 03/19/18 SimETHICONE [Mylicon] 80 mg PO PCHS tablet 03/19/18 buPROPion SR [Wellbutrin SR (150mg tablets)] 150 mg PO QHS tablet.sa 03/19/18 Following Prescrptions Were Given to Patient: Dicyclomine HCl [Bentyl] 10 mg PO TID PRN #30 capsule PRN Reason: Cramp Primary Care Physician: Ashlie Erazo, WASHING MACHINE ASSEMBLER-C [Primary Care Provider] - Please Follow Up With: Camila Maria MD - [phone] When: within 1 wk Medical Necessity - Tobacco Use Smoking Status: Never smoker Tobacco Use: Non-smoker Meaningful Use Info Meaningful Use Diagnoses (Choose all that apply): None applicable
--- NOTE | 2018-03-20 12:00 | CM.ED ---
CALLBACK: Patient states she is doing well and feeling fine. She states that she is taking her medications as prescribed and has a follow-up appointment scheduled with Camila Maria. Patient denies further questions or needs at this time.
== END 2018-03-19 15:35 | disposition home or self-care (01) | DRG 832 ==
LOC: ED 22:46 → MS2 03-16 03:23
PROVIDERS: Admitting Provider Obstetrics & Gynecology; Emergency Provider Emergency Medicine; Family Provider Nurse Practitioner Family; PCP Nurse Practitioner Family; Visit Provider Obstetrics & Gynecology
DX: O99.612 Diseases of the digestive system complicating pregnancy, second trimester (principal); K56.0 Paralytic ileus; Z3A.16 16 weeks gestation of pregnancy; K58.9 Irritable bowel syndrome, unspecified; Z90.49 Acquired absence of other specified parts of digestive tract; Z23 Encounter for immunization
CPT/HCPCS: 36415; 74177; 80048; 80053; 81001; 85025; 85610; 85730; 97803; 99284; J7030; Q9967; 90686; A4216; J2405; J3490

== ENCOUNTER 2018-05-30 22:45 | Outpatient (CLI) | payer OTHER, SELFPAY ==
[2018-05-30 23:52] LABS: ROM Internal Control Test YES-OK TO RESULT pt. (Internal QC); ROM Patient Test Negative (Negative)
[2018-05-31 00:23] VITALS: BMI 24.5
--- NOTE | 2018-05-31 00:24 | OB.TRI.NOTE ---
History of Present Illness Reason For Visit: R/O LABOR Date of Service: 05/30/18 Final KENNEDI: 08/31/18 Gestational age: 26 Weeks and 6 Days Allergies latex Allergy (Verified 03/15/18 22:25) Rash - Pertinent Past Medical History Surgical History: Past Surgical History (Last Updated 03/16/18 @ 04:35 by Maura Ding MD) H/O shoulder surgery History of tonsillectomy and adenoidectomy S/P cholecystectomy Laboratory Studies: Laboratory Tests 05/30/18 Range/Units 23:20 Vag Amniotic Fld Detect Negative (Negative) NST - FHR Rate Baby A Baseline: 125 NST Reactive:: Appropriate for gestational age Uterine Activity:: quiet Impression/Plan Reassuring NST for threatened PTL
--- OUTSIDE RECORDS SUMMARY | 2018-07-16 15:47 | XMS RPT_ITS ---
:1995 Author Organization OHIP Support Name Relationship Address Phone SANTIAGOMONCHO/FREDY Unavailable [address] + [place] [address] MAURO ARMSTRONG Unavailable [address] + [place] [address] UE Unavailable Unavailable Unavailable FREDY HENDERSON Unavailable Unavailable Unavailable SANTIAGO FREDY Unavailable Unavailable Unavailable SANTIAGO FREDY Unavailable Unavailable Unavailable MONCHO HENDERSON/FREDY Unavailable [address] + [place] [address] MAURO ARMSTRONG Unavailable [address] + [place] [address] UE Unavailable Unavailable Unavailable MONCHO HENDERSON/FREDY Unavailable [address] + [place] [address] MAURO ARMSTRONG Unavailable [address] + [place] [address] UE Unavailable Unavailable Unavailable MONCHO HENDERSON/FREDY Unavailable [address] + [place] [address] MAURO ARMSTRONG Unavailable [address] + [place] [address] UE Unavailable Unavailable Unavailable MONCHO HENDERSON/FREDY Unavailable [address] + [place] [address] MAURO ARMSTRONG Unavailable [address] + [place] [address] UE Unavailable Unavailable Unavailable MONCHO HENDERSON/FREDY Unavailable [address] + [place] [address] MAURO ARMSTRONG Unavailable [address] + [place] [address] UE Unavailable Unavailable Unavailable [place], MONCHO/FREDY Unavailable [address] + [place] [address] PATTIMAURO Unavailable [address] + [place] [address] UE Unavailable Unavailable Unavailable BANDEANNA, MONCHO/FREDY Unavailable [address] + [place] [address] MAURO ARMSTRONG Unavailable [address] + [place] [address] UE Unavailable Unavailable Unavailable [place], MONCHO/FREDY Unavailable [address] + [place] [address] [facility] Un[facility] [address] +. [place] [address] HAILEEDEANNA, MONCHO/FREDY Unavailable [address] + [place] [address] [facility] Un[facility] [address] +. [place] [id number] Care Team Providers Name Role Phone Ashlie El L Attending Unavailable Castro, Ashlie L Primary Care Unavailable Tourlas, Babak Attending Unavailable Castro, Ashlie L Primary Care Unavailable Tourlas, Babak Admitting Unavailable Castro, Ashlie L Attending Unavailable Castro, Ashlie L Primary Care Unavailable Castro, Ashlie L Primary Care Unavailable El Josue, Darwin Admitting Unavailable El Josue, Darwin Attending Unavailable Castro, Ashlie L Attending Unavailable Castro, Ashlie L Primary Care Unavailable Castro, Ashlie L Attending Unavailable Castro, Ashlie L Primary Care Unavailable Castro, Ashlie L Admitting Unavailable Catsro, Ashlie L Admitting Unavailable Castro, Ashlie L Attending Unavailable Castro, Ashlie L Primary Care Unavailable Castro, Ashlie L Attending Unavailable Castro, Ashlie L Primary Care Unavailable Castro, Ashlie L Attending Unavailable Castro, Ashlie L Primary Care Unavailable Castro, Ashlie L Admitting Unavailable Castro, Ashlie L Attending Unavailable Castro, Ashlie L Primary Care Unavailable Gianna Floyd Attending Unavailable Castro, Ashlie Primary Care Unavailable Camila Maria Attending Unavailable Camila Maria Attending Unavailable Castro, Ashlie Primary Care Unavailable Alejandra Chacon Consulting Unavailable Maura Ding Admitting Unavailable Santoyo-Maikel, Summer Attending Unavailable Paintsil, [place] Consulting Unavailable Santoyo-Maikel, Summer Admitting Unavailable Robotham, Alejandra Attending Unavailable Castro, Ashlie Primary Care Unavailable Robotham, Alejandra Consulting Unavailable Santoyo-Maikel, Summer Consulting Unavailable Santoyo-Maikel, Summer Admitting Unavailable Robotham, Alejandra Attending Unavailable Castro, Ashlie Primary Care Unavailable Robotham, Alejandra Consulting Unavailable Santoyo-Maikel, Summer Consulting Unavailable Santoyo-Maikel, Summer Admitting Unavailable Robotham, Alejandra Attending Unavailable Castro, Ashlie Primary Care Unavailable Robotham, Alejandra Consulting Unavailable Santoyo-Maikel, Summer Consulting Unavailable Santoyo-Maikel, Summer Admitting Unavailable Paintsil, [place] Attending Unavailable Castro, Ashlie Primary Care Unavailable Robotham, Alejandra Consulting Unavailable Santoyo-Maikel, Summer Consulting Unavailable Santoyo-Maikel, Summer Admitting Unavailable Robotham, Alejandra Attending Unavailable Castro, Ashlie Primary Care Unavailable Robotham, Alejandra Consulting Unavailable Paintsil, [place] Consulting Unavailable Santoyo-Maikel, Summer Consulting Unavailable Santoyo-Maikel, Summer Admitting Unavailable [place], [place] Attending Unavailable Castro, Ashlie Primary Care Unavailable Robotham, Alejandra Consulting Unavailable Paintsil, [place] Consulting Unavailable Santoyo-Maikel, Summer Consulting Unavailable MICHELLE SILVA ([facility]) Attending Unavailable JESUS BARRETO Attending Unavailable MARIEL, GIANNA Referring Unavailable GIANNA FLOYD Attending Unavailable WISALEJANDRO, JOSÉ Attending Unavailable WISWELL, JOSÉ Attending Unavailable WISWELL, JOSÉ Attending Unavailable WISWELL, JOSÉ Referring Unavailable MICHELLE SILVA ([facility]) Attending Unavailable MARIEL, KARGELA Referring Unavailable MARIEL KARGELA Attending Unavailable MARIEL KARGELA Referring Unavailable MICHELLE SILVA ([facility]) Referring Unavailable EDWARDO SHAH Attending Unavailable EDWARDO SHAH Referring Unavailable ARCADIO DALLAS Attending Unavailable ASHLIE EL Referring Unavailable PROBLEMS PROBLEMS DATE TYPE CONDITION / CODE ATTENDING STATUS SOURCE 07/04/2018 Active 30 weeks gestation NA Active [place] of / Clinic Main Z3A.30(ICD-10) [place] Repository 07/04/2018 Active Right upper NA Active [place] quadrant pain / Clinic Main R10.11(ICD-10) [place] Repository 06/03/2018 Active 27 weeks gestation NA Active [facility] / Clinic Main Z3A.27(ICD-10) [place] Repository 04/11/2018 Active Unknown / BARRETO, JESUS [place] Active [place] UNK(Unknown) [facility] Main [place] Repository 03/19/2018 Unknown K58.9 - Irritable Toña, Active [place] bowel syndrome [facility] without diarrhea / Hospital K58.9(ICD-10) Repository 03/19/2018 Unknown O99.619 - Diseases Toña, Active [place] of the digestive [facility] system complicating Hospital , Repository unspecified trimester / O99.619(ICD-10) 03/19/2018 Unknown R10.31 - Right Toña, Active [place] lower quadrant pain [facility] / R10.31(ICD-10) Hospital Repository 03/19/2018 Unknown Z3A.16 - 16 weeks Toña, Active [place] gestation of [facility] / Hospital Z3A.16(ICD-10) Repository 01/29/2018 Unknown Z34.81 - Encounter Camila Maria Active [place] for supervision of Community other normal Hospital , first Repository trimester / Z34.81(ICD-10) 01/01/2018 Unknown Z11.3 - Encounter Camila Maria Active [place] for screening for Community infections with a Hospital predominantly Repository sexual mode of transmission / Z11.3(ICD-10) 01/01/2018 Unknown Z12.4 - Encounter Camila Maria Active [place] for screening for Community malignant neoplasm [facility] cervix / Repository Z12.4(ICD-10) 07/23/2017 Admitting Unspecified RAEDARCADIO Gottlieb F Active [facility] Diagnosis intracranial injury System ([place]) with loss of Repository consciousness of 30 minutes or less, initial encounter (HCC) / S06.9X1A(ICD-10) 07/11/2017 Admitting Contusion of right EDWARDO SHAH Active [facility] Diagnosis knee, initial [place] ([place]) encounter / Repository S80.01XA(ICD-10) PROCEDURES PROCEDURES No Procedure Records FoundRESULTS RESULTS AMYLASE Collected: 07/04/2018 Status: F Source: [place] 4:03 PM [facility] [place] REPOSITORY TYPE CODE TESTS RESULT OUT OF REFERENCE UNITS RANGE LAB AMYL 30-104 U/L Amylase 78 Performed By: #### AMYL, HFP, LIPA, RUBIGG #### [facility] [address] [place], [place] [address] HEPATIC FUNCTN PANEL Collected: 07/04/2018 Status: F Source: [place] 4:03 PM [facility] REPOSITORY TYPE CODE TESTS RESULT OUT OF REFERENCE UNITS RANGE LAB ALB 3.9-4.9 g/dL Low Albumin 3.6 LAB TBIL 0.2-1.3 mg/dL Low Bilirubin, Total <0.2 LAB CBIL <0.2 mg/dL Bilirubin,Conjuga <0.2 matt LAB ALKP 34-123 U/L Alkaline Phosphatase 79 LAB AST 13-35 U/L AST 19 LAB ALT 7-38 U/L ALT 15 LAB TP 6.3-8.0 g/dL Protein, Total 6.9 Performed By: #### AMYL, HFP, LIPA, RUBIGG #### [place] [id number] [place] [id number] LIPASE Collected: 07/04/2018 Status: F Source: [place] 4:03 PM [facility] REPOSITORY TYPE CODE TESTS RESULT OUT OF REFERENCE UNITS RANGE LAB LIPA 16-61 U/L Lipase 22 Performed By: #### AMYL, HFP, LIPA, RUBIGG #### [place] [address] RUBELLA IGG ANTIBODY Collected: 07/04/2018 Status: F Source: [place] 4:03 PM [facility] REPOSITORY TYPE CODE TESTS RESULT OUT OF RANGE REFERENCE UNITS LAB RUBGQL Negative Abnormal Rubella IgG Positive Alert Ab, Qual Result Comment: Sample is considered positive for IgG antibodies to rubella virus. A positive result indicates previous exposure to Rubella virus or vaccination. LAB RUBQNT Index Value Rubella IgG Ab 2.42 Result Comment: Index values are interpreted as follows: Negative specimens <0.90 Equivocol specimens 0.90 to 0.99 Positive specimens >0.99 The magnitude of the measured result is not indicative of the amount of antibody present. Performed By: #### AMYL, HFP, LIPA, RUBIGG #### [place] [id number] [place], [place] [address] CBC AND DIFFERENTIAL Collected: 06/03/2018 Status: F Source: [place] 9:10 AM [facility] REPOSITORY TYPE CODE TESTS RESULT OUT OF REFERENCE UNITS RANGE LAB WBC 3.70-11.00 k/uL WBC High 11.93 LAB RBC 3.90-5.20 m/uL Low RBC 3.35 LAB HGB 11.5-15.5 g/dL Low Hemoglobin 11.1 LAB HCT 36.0-46.0 % Low Hematocrit 34.5 LAB MCV 80.0-100.0 fL MCV High 103.0 LAB MCH 26.0-34.0 pG MCH 33.1 LAB MCHC 30.5-36.0 g/dL MCHC 32.2 LAB RDWCV 11.5-15.0 % RDW-CV 13.2 LAB PLTCT 150-400 k/uL Platelet Count 279 LAB MPV 9.0-12.7 fL MPV 11.6 LAB ANEUT % Neut% 70.5 LAB AANEUT 1.45-7.50 k/uL Abs Neut High 8.41 LAB ALYMP % Lymph% 18.4 LAB AALYMP 1.00-4.00 k/uL Abs Lymph 2.19 LAB AMONO % [place]% 8.2 LAB AAMONO <0.87 k/uL Abs [place] High 0.98 LAB AEOS % Eosin% 2.4 LAB AAEOS <0.46 k/uL Abs Eosin 0.29 LAB ABASO % Baso% 0.5 LAB AABASO <0.11 k/uL Abs Baso 0.06 LAB AUNRBC 0 /100 WBC NRBCs 0.0 LAB ABNRBC <0.01 k/uL Absolute nRBC <0.01 LAB DTYP DTYPE Auto Diff Performed By: #### CBCDIF #### [facility] [address] [place], [place] [address] 50G, 1HR GEST. Collected: 06/03/2018 Status: F [facility] REPOSITORY TYPE CODE TESTS RESULT OUT OF REFERENCE UNITS RANGE LAB GLUP 74-134 mg/dL Glucose 119 Screen, Preg Result Comment: [place] [employer]etric[employer] Gynec[employer] (Brian/Coustan) guidelines state a gestational diabetes mellitus positive screen is made, in women not previously diagnosed with overt diabetes, when the 1 hr plasma glucose level is equal to or above 140 mg/dL. The [facility] [employer] Level[employer] and [facility] [place] recommends a 135 mg/dL cutoff. Performed By: #### GLTGST #### [facility] [address] [place] [address] (ROM) RUPTURE OF Collected: 05/30/2018 Status: F Source: [facility] 11:20 PM [facility] REPOSITORY TYPE CODE TESTS RESULT OUT OF RANGE REFERENCE UNITS LAB L205.1310 Negative Normal ROM Negative Result Comment: Amniotic fluid not present indicates No Rupture of Membranes at time of specimen collection. Performed By: #### L205.1000 #### [facility] [address] [place], [place], [id number] Observed: 05/28/2018 Status: F Source: [place] BACT/CAND VAG GRM ST 3:15 PM [facility] REPOSITORY Sp. Request/Comment: - Swab Smear Result - BACTERIAL VAGINOSIS RESULT: Stain results consistent with normal vaginal radha. No Yeast observed Few Polymorphonuclear leukocytes Performed By: #### BVCNSM #### [place] [address] Observed: 05/28/2018 Status: F Source: [place] URINE CULTURE 3:15 PM [facility] REPOSITORY Sp. Request/Comment: - Specimen received in preservative Culture Result - No growth (<1,000 CFU/ml) Performed By: #### URCUL #### [place] [address] Observed: 05/15/2018 Status: F Source: [place] STRE[facility] 1:38 PM [facility] REPOSITORY Final Report: No Beta Hemolytic Streptococci Isolated Performed By: #### CD:[id number] #### [facility] Microbiology Subsection [address] [place] [address] CBC W/ AUTO DIFF Collected: 05/14/2018 Status: F Source: [place] 9:44 PM [facility] REPOSITORY TYPE CODE TESTS RESULT OUT OF RANGE REFERENCE UNITS LAB [id number](L 3.6-11.0 E3/mcL OINC) High WBC 12.7 LAB 09937191(L 3.90-5.40 E6/mcL OINC) Low RBC 3.51 LAB 24493731(L 12.0-16.0 G/DL OINC) Low Hgb 11.6 LAB 29644901(L 36.0-48.0 % OINC) Low Hct 34.3 LAB 99856978(L 11.5-14.5 % OINC) Normal RDW 13.5 LAB 05316564(L 27.0-31.0 pg OINC) High MCH 33.2 LAB 95002053(L 33.0-37.0 G/DL OINC) Normal MCHC 33.9 LAB 27327385(L 78.0-100.0 fL OINC) Normal MCV 97.9 LAB 69092822(L 7.4-11.0 fL OINC) Normal MPV 9.6 LAB 59828604(L 130-400 E3/mcL OINC) Normal Platelet 251 Performed By: #### [id number] #### [facility] [address] [place] [address] AUTO DIFF Collected: 05/14/2018 Status: F Source: [place] 9:44 PM [facility] REPOSITORY Order Comment: Order Added by Discern Expert. TYPE CODE TESTS RESULT OUT OF RANGE REFERENCE UNITS LAB 87681422(L 37.0-75.0 % OINC) High Neutro Auto 84.4 LAB 00908914(L 20.0-55.0 % OINC) Low Lymph Auto 7.7 LAB 25897382(L 0.0-10.0 % OINC) Normal [place] Auto 6.5 LAB 32502806(L 0.0-11.0 % OINC) Normal Eos Auto 0.8 LAB 48877605(L 0.0-2.0 % OINC) Normal Basophil Auto 0.6 LAB 08373706(L 1.4-6.5 E3/mcL OINC) High Neutro 10.8 Absolute LAB 53952179(L 1.2-3.4 E3/mcL OINC) Low Lymph Absolute 1.0 LAB 26087542(L 0.0-0.7 E3/mcL OINC) High [place] Absolute 0.8 LAB 03463513(L 0.0-0.7 E3/mcL OINC) Normal Eos Absolute 0.1 LAB 97267397(L 0.0-0.2 E3/mcL OINC) Normal Basophil 0.1 Absolute Performed By: #### [id number] #### [facility] [address] [place] [id number] UA COMPLETE Collected: 05/14/2018 Status: F Source: [place] 9:44 PM [facility] REPOSITORY TYPE CODE TESTS RESULT OUT OF RANGE REFERENCE UNITS LAB 53630390( Yellow LOINC) Normal UA Color Yellow LAB 49550604( Clear LOINC) UA Clarity Abnormal SltCloudy LAB 11813224( Negative LOINC) Normal UA Glucose Negative LAB 96676290( Negative LOINC) Normal UA Bili Negative LAB 70873180( Negative LOINC) Normal UA Ketones Negative LAB 52778777( 1.003-1.030 LOINC) Normal UA Spec Grav 1.025 LAB 45485699( 4.6-8.0 LOINC) Normal UA pH 6.0 LAB 69186262( Negative LOINC) UA Protein 1+ Abnormal LAB 10152337( mg/dL LOINC) UA Abnormal Urobilinogen 2.0 Result Comment: Due to a manufacturing issue, low positive urobilinogen results may be fasely positive. Correlate with urine bilirubin and additional clinical/laboratory findings to assess the risk of hemolytic anemia or liver disease. If clinically indicated, repeat testing with an alternate method is available by contacting the laboratory within 24 hours. LAB 29317066(LOINC) Negative UA Normal Nitrite Negative LAB 02616459(LOINC) Negative UA Normal Blood Negative LAB 21934020(LOINC) Negative UA 1+ Abnormal Leuk Est LAB 29403350(LOINC) 0-3 /HPF UA Normal RBC 0-3 LAB 41103457(LOINC) 0-5 /HPF UA Normal WBC 0-5 LAB 87559306(LOINC) 0-5 /HPF UA Normal Squam 0-5 Epithelial LAB 95538198(LOINC) None /HPF UA Abnormal Bacteria Trace LAB 87963246(LOINC) Trace /LPF UA Abnormal Mucous Occasional LAB CD:[id number](LOINC) <=19 mg/d High L UA 40 Ascorbic Acid Performed By: #### [id number] #### [facility] Urinalysis Automated Subsection [address] [place] [id number] BMP Collected: 05/14/2018 Status: F Source: [place] 9:44 PM [facility] REPOSITORY TYPE CODE TESTS RESULT OUT OF RANGE REFERENCE UNITS LAB 58288291(L 70-99 mg/dL OINC) Glucose Normal Lvl 87 LAB 24220613(L 6-23 mg/dL OINC) BUN Normal 8 LAB 3074289(LO 0.5-1.1 mg/dL INC) Low Creatinine 0.4 LAB 95906449(L 5.4-30.0 ratio OINC) Normal BUN/Creat Ratio 20.0 LAB 54331932(L 8.6-10.3 mg/dL OINC) Low Calcium Lvl 8.5 LAB 63488208(L 136-145 mEq/L OINC) Low Sodium Lvl 133 LAB 70307844(L 3.5-5.3 mEq/L OINC) Normal Potassium Lvl 3.7 LAB 96709435(L 98-107 mEq/L OINC) Chloride Normal 103 LAB 30911450(L 21.0-32.0 mEq/L OINC) CO2 Normal 22.0 LAB 07144945(L 10-20 mEq/L OINC) AGAP Normal 12 Performed By: #### [id number] #### [facility] [place] [address] EGFR Collected: 05/14/2018 Status: F Source: [place] 9:44 [facility] REPOSITORY Order Comment: Order added by Discern Expert. TYPE CODE TESTS RESULT OUT OF RANGE REFERENCE UNITS LAB 49968125(LO mL/min/1.73 INC) m2 Normal eGFR >60 LAB 52929769(LO mL/min/1.73 INC) m2 Normal eGFR AA >60 Performed By: #### [id number] #### [facility] [address] [place] [address] HEP FUNC PANEL Collected: 05/14/2018 Status: F Source: [place] 9:44 [facility] REPOSITORY TYPE CODE TESTS RESULT OUT OF RANGE REFERENCE UNITS LAB 25972124(L 7-45 Int._Unit/L OINC) Normal ALT 15 LAB 02925774(L 9-39 Int._Unit/L OINC) Normal AST 29 LAB 60985432(L 3.4-5.0 gm/dL OINC) Low Albumin Lvl 3.3 LAB 53536910(L 2.0-4.0 G/DL OINC) Normal Globulin 3.0 LAB 80241948(L 1.1-1.9 ratio OINC) Normal A/G Ratio 1.3 LAB 95286669(L 33-110 Int._Unit/L OINC) Normal Alk Phos 78 LAB 80558087(L 0.00-0.30 mg/dL OINC) Normal Bili Direct 0.05 LAB 90223066(L OINC) Normal Bili Indirect 0.2 LAB 20547160(L 0.0-1.2 mg/dL OINC) Normal Bili Total 0.3 LAB 00161754(L 6.4-8.2 gm/dL OINC) Low Total Protein 5.8 Performed By: #### [id number] #### [facility] [address] [place] [address] LIPASE LEVEL Collected: 05/14/2018 Status: F Source: [place] 9:44 PM [facility] REPOSITORY TYPE CODE TESTS RESULT OUT OF RANGE REFERENCE UNITS LAB 99916883(LO 9-82 Int._Unit/L INC) Normal Lipase Lvl 17 Performed By: #### [id number] #### [facility] [address] [place] [address] POC STREP A Collected: 05/14/2018 Status: F Source: [place] 6:12 PM [facility] REPOSITORY TYPE CODE TESTS RESULT OUT OF RANGE REFERENCE UNITS LAB CD:[id number] Negative 283(LOINC) Normal Strep A Negative Screen LAB CD:1029913 Positive 315(LOINC) Normal Strep A Positive Scrn Int Ctl Performed By: #### CD:[id number] #### [facility] POC Subsection [address] [place] [address] POC INFLUENZA A&B AG Collected: 05/14/2018 Status: F Source: [place] 6:12 PM [facility] REPOSITORY TYPE CODE TESTS RESULT OUT OF REFERENCE UNITS RANGE LAB 51126876(L Negative OINC) Normal Influenzae A Ag Negative LAB 49143364(L Negative OINC) Normal Influenzae B Ag Negative LAB CD:[id number] Positive 309(LOINC) Influ Normal A&B Int Pos Ctl Positive Performed By: #### CD:[id number] #### [facility] POC Subsection [address] [place] [address] PROGRESS Observed: 04/11/2018 Status: COMPLETED Source: [place] 3:35 PM [facility] REPOSITORY HNO ID: [id number] Author: Jesus Barreto Service: (none) Author Type: Physician Type: Progress Notes Filed: 04/11/2018 3:35 PM Note Text: Please see ultrasound report for details of this visit. Jesus Barreto M.D. PROGRESS Observed: 04/11/2018 Status: COMPLETED Source: [place] 10:02 AM [facility] [place] REPOSITORY HNO ID: [id number] Author: Gianna Floyd Service: (none) Author Type: Physician Type: Progress Notes Filed: 04/11/2018 12:33 PM Note Text: INITIAL OB ASSESSMENT Obstetric History T0 L0 SAB0 TAB0 Ectopic0 Multiple0 Live Births0 Name of Baby 1: Not recorded Date: Not recorded GA: Not recorded Delivery: Not recorded Apgar1: Not recorded Apgar5: Not recorded Living: Not recorded HPI: Antonette Henderson is a 23 year old female here to establish Obstetrical Care. Patient's last menstrual period was 11/16/2017. from OB Dating Form. Complaints: Nausea was unplanned but accepted. Obstetric History T0 L0 SAB0 TAB0 Ectopic0 Multiple0 Live Births0 Prior : never History of 4th degree laceration: No Patient's Risk Screening for delivery: History of abnormal pap: LSIL Prior treatment for cervical dysplasia: none. 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 Patient BMI over 30? 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 - Celiac disease - Complication of anesthesia difficulty awakening - Depression - Irritable bowel syndrome possible - seen by Dr Rai at [facility] at age 11 years - Seasonal allergies PAST SURGICAL HISTORY Procedure Laterality Date - COLONOSCOP W/ OR W/O BRSH SPEC 2012 Colonoscopy - COLONOSCOP W/ OR W/O BRSH SPEC 03/09/2016 Colonoscopy - EGD W/O OR W/BRUSH/WASH 2012 EGD - EGD W/O OR W/BRUSH/WASH 03/09/2016 EGD - LAPAROSCOPIC CHOLEYCYSTECTOMY Cholecystectomy, lap - PAST SURGICAL HISTORY OF 2010 torn ligament right shoulder - Dr Corbett - PAST SURGICAL HISTORY OF 2011 torn ligament left hip - Dr Méndez - PAST SURGICAL HISTORY OF knee torn ligament Current Outpatient Prescriptions on File Prior to Visit: metoclopramide HCl (REGLAN) 5 mg tablet Take 1 tablet by mouth four times daily. FLUoxetine HCl (PROZAC) 40 mg capsule Take 40 mg by mouth once daily. omega-3/dha/epa/ala/vitamin D3 (RMCYF-8-BVA-EPA-ALA-VIT D3 ORAL) Take by mouth. Gcfgdlta-Kk-Oiv-Fe-FA ( VITAMIN) tab Take 1 tablet by mouth. hydrOXYzine pamoate (VISTARIL) 25 mg capsule Take 25 mg by mouth three times daily as needed. Ranitidine HCl 150 mg capsule Take 150 mg by mouth twice daily. epnirfsaj-kyceau-szuldqot-scop () 16.2-0.1037 -0.0194 mg per tablet Take 1 tablet by mouth every 6 hours as needed. hyoscyamine SR (LEVBID) 0.375 mg 12 hr tablet Take 1 tablet by mouth twice daily. hbkcmcosg-ikfckf-wzjaivdb-scop () 16.2-0.1037 -0.0194 mg per tablet Take 1 tablet by mouth every 6 hours as needed. (Patient not taking: Reported on 03/28/2018 ) No current facility-administered medications on file prior to visit. ASSESSMENT: 23 year old at 19AND5 wks gestational age PLAN: 1) Patient oriented to practice. Discussed nutrition, folic acid supplementation, dietary guidelines, exercise, smoking, alcohol, caffeine, and drug use. 2) See problem list 3) Anatomy US today 4) Reviewed records from ' office Follow up in 4 weeks or sooner prn. Gianna Floyd MD TOXICOLOGY SCREEN,UR Collected: 04/02/2018 Status: F Source: [place] 1:42 PM [facility] REPOSITORY TYPE CODE TESTS RESULT OUT OF REFERENCE UNITS RANGE LAB UPCP2 Negative Negative Phencyclidin e, Urine Result Comment: Cutoff threshold at 25 ng/mL. LAB UBENZ2 Negative Benzodiazepines, Ur Negative Result Comment: Cutoff threshold at 200 ng/mL. LAB UCOC2 Negative Cocaine, Negative Urine Result Comment: Cutoff threshold at 300 ng/mL. LAB UAMPH2 Negative Amphetamines, Urine Negative Result Comment: Cutoff threshold at 1000 ng/mL. LAB UTHC2 Negative Cannabinoids, Urine Negative Result Comment: Cutoff threshold at 50 ng/mL. LAB UOPI2 Negative Opiates, Negative Urine Result Comment: Cutoff threshold at 300 ng/mL. LAB UBARB2 Negative Barbiturates, Urine Negative Result Comment: Cutoff threshold at 200 ng/mL. LAB UETOH <11 mg/dL <11 Ethanol, Urine LAB UOXYC Negative Oxycodone, Negative Urine Result Comment: Cutoff threshold at 100 ng/mL. Comment: Immunoassay screen only. Cross reactivity with other substances can occur with immunoassay screening. Detection of any drug(s) in this urine toxicology panel is presumptive only. These tests are for med ical purposes only and should not be used for compliance monitoring, legal, or forensic use. Samples should be within normal physiological conditions (e.g. pH). This assay does not include adulteration/specimen validity testing. In clinical settings, confirmatory testing is at the practitioner's discretion [1]. If clinically indicated, confirmation by high specificity, quantitative methodology, which includes adulteration/spec imen validity testing, may be requested on the same specimen through Client Services ([phone]) if contacted within 48 hours of initial testing. [1]Substance Abuse and Mental Health Services Administration (2012). Clinical Drug Testing in Primary Care Technical Assistance Publication Series 32. Department of Health and Human Services, [place], p.10. These tests were developed and their performance characteristics determined by [facility] [place] ( [facility]). They have not been cleared or a pproved by the FDA. [facility] is regulated under CLIA as qualified to perform high complexity testing. These tests are used for clinical purposes. They should not be regarded as investigational or for research. Performed By: #### UTOX2 #### [facility] [address], [place] [address] Observed: 04/02/2018 Status: F Source: [place] URINE CULTURE 1:42 PM [facility] REPOSITORY Sp. 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 [place] like she got into car accident, pain all over. Abdominal, back pain, and shooting down leg. Tylenol, Icy/Hot, warm bath not effective. Not sleeping, tossing and turning due to pain. Increased nausea and emesis, Zantac for nausea?, unable to keep water down. -Patient states she is able to eat but unable to drink liquids. When she tries to drink she becomes nauseated and throws it back up. Has eaten pancakes and rice with no issues. Was seen in ER at [facility], admitted 03/14-03/19 for bowel blockage. Currently denies constipation and diarrhea. 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 - Celiac disease - Complication of anesthesia difficulty awakening - Depression - Irritable bowel syndrome possible - seen by Dr Rai at [facility] at age 11 years - Seasonal allergies PAST SURGICAL HISTORY Procedure Laterality Date - COLONOSCOP W/ OR W/O [facility] SPEC 2012 Colonoscopy - COLONOSCOP W/ OR W/O [facility] SPEC 03/09/2016 Colonoscopy - EGD W/O OR W/BRUSH/WASH 2012 EGD - EGD W/O OR W/BRUSH/WASH 03/09/2016 EGD - LAPAROSCOPIC CHOLEYCYSTECTOMY Cholecystectomy, lap - PAST SURGICAL HISTORY OF 2010 torn ligament right shoulder - Dr Corbett - PAST SURGICAL HISTORY OF 2011 torn ligament left hip - Dr Méndez - PAST SURGICAL HISTORY OF knee torn ligament FAMILY HISTORY Problem Relation Age of Onset - Cancer Maternal Grandmother - Heart Maternal Grandmother - Diabetes Maternal Grandmother - Ovarian cancer Mother - Asthma Father - Cancer Maternal Grandfather - Cancer Paternal Grandmother - Cancer Paternal Grandfather - other (Tourettes) Brother - other (Lyme Disease) Brother - Ovarian cancer Other Social History Marital status: Spouse name: Mauro Geronimo Years of education: 13 Number of children: Occupational History Occupation Employer Comment unemployed Social History Main Topics Smoking status: Never Smoker Smokeless tobacco: Never Used Alcohol use: No Drug use: No Sexual activity: Yes Partners with: Male Current Outpatient Prescriptions: FLUoxetine HCl (PROZAC) 40 mg capsule Take 40 mg by mouth once daily. omega-3/dha/epa/ala/vitamin D3 (QWOYU-0-RFB-EPA-ALA-VIT D3 ORAL) Take by mouth. Ilksnwdx-Tp-Yzu-Fe-FA ( VITAMIN) tab Take 1 tablet by mouth. hydrOXYzine pamoate (VISTARIL) 25 mg capsule Take 25 mg by mouth three times daily as needed. Ranitidine HCl 150 mg capsule Take 150 mg by mouth twice daily. qeplmbhra-nyvwqu-lgzagxel-scop () 16.2-0.1037 -0.0194 mg per tablet Take 1 tablet by mouth every 6 hours as needed. hyoscyamine SR (LEVBID) 0.375 mg 12 hr tablet Take 1 tablet by mouth twice daily. L-NORGEST/E.ESTRADIOL-E.ESTRAD (CAMRESE LO ORAL) Take by mouth once daily. eesjnnvks-eheaup-fhuomaoe-scop () 16.2-0.1037 -0.0194 mg per tablet Take 1 tablet by mouth every 6 hours as needed. (Patient not taking: Reported on 03/28/2018 ) No current facility-administered medications for this visit. Allergies As of Date: 04/02/2018 Allergen Noted Reaction LATEX 09/18/2012 Rash Fully Assessed 04/02/2018 REVIEW OF SYSTEMS Abdomen: No bloating, early satiety, indigestion, or increased flatulence. No abdominal pain, nausea, vomiting, diarrhea, or constipation. Bladder: No dysuria, gross hematuria, urinary frequency, urinary urgency, or incontinence. Breast: No breast lumps, nipple d/c, overlying skin changes, redness or skin retraction. Expanded ROS: N/A Allergies and current medication updated:Yes EXAM: BP 104/62 Wt 134 lb 12.8 oz (61.1kg) LMP 11/16/2017 , Temperature 98.6 GENERAL: pleasant, female in no apparent distress HEENT: Normocephalic and atraumatic NECK: Supple, full range of motion and no adenopathy DERMATOLOGY: Normal, without lesions, non-icteric and non-hirsute CHEST: Clear to auscultation Normal inspiratory effort Regular rate and rhythm No murmurs, clicks, rubs or gallops ABDOMEN: soft, non-tender and no masses. No CVAT NEURO: alert and oriented x3,exam grossly non-focal EXTREMITIES: normal Fundal height 18 EGA, FHT 150 UA dip negative in office ASSESSMENT AND PLAN: 1. Encounter for supervision of normal first in second trimester - ICD9: V22.0, ICD10: Z34.02 (primary diagnosis) - URINE OB DIP B/O 2. 18 weeks gestation of - ICD9: V22.2, ICD10: Z3A.18 - URINE OB DIP B/O - TOX SCREEN ROUT UR - URINE CULTURE 3. Nausea and vomiting during - ICD9: 643.90, ICD10: O21.9 -UA negative but will send urine culture, I do not suspect UTI will. -Discussed drinking liquids in 1oz amounts to see if she tolerates better, may drink water with lemon, lemonade, or gatorade. If not feeling better in next 24hrs or keeping food or liquids down needs to call for appointment or go to ER. -Reviewed options for N/V, discussed Reglan or Zofran, r/b/a. Patient would like Reglan at this time. 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 The sequential screen combines ultrasound and blood tests to determine the risk of chromosomal abnormalities, including Down's Syndrome (Trisomy 21) and Trisomy 18, as well as open neural tube defects including spina bifida. Ultrasound examination is performed between 11 weeks and 13 weeks gestational age. Blood tests are drawn after the ultrasound and again later in the between 15 and 21 weeks gestational age. Please let your physician know if you are interested in this testing. It will require an appointment with our veterinary technician assistant. This is not an ultrasound performed by a physician in our office during a routine visit. SIGNS AND SYMPTOMS OF LABOR 1. Contractions every 10 minutes or more often 2. Clear, pink, or brownish fluid (water) leaking from vagina 3. Feeling that baby is pushing down, pressure 4. Low, dull backache 5. Cramps that feel like a period 6. Cramps with or without diarrhea If you notice any of the above symptoms, contact our office at [phone] and ask to speak with a nurse. After hours, you can call doctors registry at [phone] OR call [facility] at [phone] and ask to have the doctor design and sales consultant paged. If you consider this an emergency, dial 9-9-9 or go to your nearest emergency department. NEED HELP? Are you dealing with a violent or abusive relationship? Are you a victim of rape or sexual assult? Call [facility] ([place]) 24 hour Crisis Hotline: 414.191.5951 or 635-197-2521. MANUAL Your Guide to a Healthy manual is now on-line. Visit [email or web address] to download your free copy Michelle Silva APRN.CNM 04/05/2018 11:09 AM Signed Antonette Saba Santiago is a 23 year old female who presents for problem visit HPI: Pain started 3 days ago throughout the night. [place] like she got into car accident, pain all over. Abdominal, back pain, and shooting down leg. Tylenol, Icy/Hot, warm bath not effective. Not sleeping, tossing and turning due to pain. Increased nausea and emesis, Zantac for nausea?, unable to keep water down. -Patient states she is able to eat but unable to drink liquids. When she tries to drink she becomes nauseated and throws it back up. Has eaten pancakes and rice with no issues. Was seen in ER at [facility], admitted 03/14- 03/19 for bowel blockage. Currently denies constipation and diarrhea. 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 - Celiac disease - Complication of anesthesia difficulty awakening - Depression - Irritable bowel syndrome possible - seen by Dr Rai at [facility] at age 11 years - Seasonal allergies PAST SURGICAL HISTORY Procedure Laterality Date - COLONOSCOP W/ OR W/O [facility] SPEC 2012 Colonoscopy - COLONOSCOP W/ OR W/O [facility] SPEC 03/09/2016 Colonoscopy - EGD W/O OR W/BRUSH/WASH 2012 EGD - EGD W/O OR W/BRUSH/WASH 03/09/2016 EGD - LAPAROSCOPIC CHOLEYCYSTECTOMY Cholecystectomy, lap - PAST SURGICAL HISTORY OF 2010 torn ligament right shoulder - Dr Corbett - PAST SURGICAL HISTORY OF 2011 torn ligament left hip - Dr Méndez - PAST SURGICAL HISTORY OF knee torn ligament FAMILY HISTORY Problem Relation Age of Onset - Cancer Maternal Grandmother - Heart Maternal Grandmother - Diabetes Maternal Grandmother - Ovarian cancer Mother - Asthma Father - Cancer Maternal Grandfather - Cancer Paternal Grandmother - Cancer Paternal Grandfather - other (Tourettes) Brother - other (Lyme Disease) Brother - Ovarian cancer Other Social History Marital status: Spouse name: Mauro Geronimo Years of education: 13 Number of children: Occupational History Occupation Employer Comment unemployed Social History Main Topics Smoking status: Never Smoker Smokeless tobacco: Never Used Alcohol use: No Drug use: No Sexual activity: Yes Partners with: Male Current Outpatient Prescriptions: FLUoxetine HCl (PROZAC) 40 mg capsule Take 40 mg by mouth once daily. omega-3/dha/epa/ala/vitamin D3 (RITHX-2-KPD-EPA-ALA-VIT D3 ORAL) Take by mouth. Fedivjjs-Eu-Igx-Fe-FA ( VITAMIN) tab Take 1 tablet by mouth. hydrOXYzine pamoate (VISTARIL) 25 mg capsule Take 25 mg by mouth three times daily as needed. Ranitidine HCl 150 mg capsule Take 150 mg by mouth twice daily. rtbugwfmb-kyqzlo-hmczmgjt-scop () 16.2-0.1037 -0.0194 mg per tablet Take 1 tablet by mouth every 6 hours as needed. hyoscyamine SR (LEVBID) 0.375 mg 12 hr tablet Take 1 tablet by mouth twice daily. L-NORGEST/E.ESTRADIOL-E.ESTRAD (CAMRESE LO ORAL) Take by mouth once daily. mzytamtrm-pedapt-qesxlwfq-scop () 16.2-0.1037 -0.0194 mg per tablet Take 1 tablet by mouth every 6 hours as needed. (Patient not taking: Reported on 03/28/2018 ) No current facility-administered medications for this visit. Allergies As of Date: 04/02/2018 Allergen Noted Reaction LATEX 09/18/2012 Rash Fully Assessed 04/02/2018 REVIEW OF SYSTEMS Abdomen: No bloating, early satiety, indigestion, or increased flatulence. No abdominal pain, nausea, vomiting, diarrhea, or constipation. Bladder: No dysuria, gross hematuria, urinary frequency, urinary urgency, or incontinence. Breast: No breast lumps, nipple d/c, overlying skin changes, redness or skin retraction. Expanded ROS: N/A Allergies and current medication updated:Yes EXAM: BP 104/62 Wt 134 lb 12.8 oz (61.1kg) LMP 11/16/2017 , Temperature 98.6 GENERAL: pleasant, female in no apparent distress HEENT: Normocephalic and atraumatic NECK: Supple, full range of motion and no adenopathy DERMATOLOGY: Normal, without lesions, non-icteric and non-hirsute CHEST: Clear to auscultation Normal inspiratory effort Regular rate and rhythm No murmurs, clicks, rubs or gallops ABDOMEN: soft, non-tender and no masses. No CVAT NEURO: alert and oriented x3,exam grossly non-focal EXTREMITIES: normal Fundal height 18 EGA, FHT 150 UA dip negative in office ASSESSMENT AND PLAN: 1. Encounter for supervision of normal first in second trimester - ICD9: V22.0, ICD10: Z34.02 (primary diagnosis) - URINE OB DIP B/O 2. 18 weeks gestation of - ICD9: V22.2, ICD10: Z3A.18 - URINE OB DIP B/O - TOX SCREEN ROUT UR - URINE CULTURE 3. Nausea and vomiting during - ICD9: 643.90, ICD10: O21.9 -UA negative but will send urine culture, I do not suspect UTI will. -Discussed drinking liquids in 1oz amounts to see if she tolerates better, may drink water with lemon, lemonade, or gatorade. If not feeling better in next 24hrs or keeping food or liquids down needs to call for appointment or go to ER. -Reviewed options for N/V, discussed Reglan or Zofran, r/b/a. Patient would like Reglan at this time. -Has OB visit on 04/11/[address]James Michelle Silva, SELECTOR PACKER.CNM Referring Provider: SELF [[id number]] Allergies As of Date: 04/02/2018 Noted Allergy Reaction LATEX 09/18/2012 2 - Rash Comments: gets blisters Date Reviewed: 04/02/2018 Reviewed by: Federica Cunningham Ma - Fully Assessed Reason for Visit: Care [86] Primary Visit Diagnosis:Encounter for supervision of normal first in second trimester [Z34.02] Other Visit Diagnoses:18 weeks gestation of [Z3A.18] Nausea and vomiting during [O21.9] Order(s):URINE OB DIP B/O [1693196] Order #: [id number] TOX SCREEN ROUT UR [SQUTOX2] Order #: [id number]. #:[id number] URINE CULTURE [SQURCUL] Order #: [id number]. #:[id number] [id number] DIP, URINE (POC) [1491253] Order #: [id number]. #:[id number] metoclopramide HCl (REGLAN) 5 mg tabletTake 1 tablet by mouth four times daily.Disp: 30 tabletRfl: 0 Prescriptions as of 04/02/2018 Sig: FLUOXETINE 40 MG CAPSULE Take 40 mg by mouth once tolu* RHJUK-7-NZG-EPA-ALA-VIT D3 OR* Take by mouth. VITAMIN,CALCIUM,MINE* Take 1 tablet by mouth. HYDROXYZINE PAMOATE 25 MG CAP* Take 25 mg by mouth three ok* RANITIDINE 150 MG CAPSULE Take 150 mg by mouth twice da* ZLWMJHHII-JFJFUBLOA-DKQYHTUC-* Take 1 tablet by mouth every * HYOSCYAMINE ER 0.375 MG TABLE* Take 1 tablet by mouth twice * METOCLOPRAMIDE 5 MG TABLET Take 1 tablet by mouth four t* YLWKMVAGL-RUWRFLQUL-ZTNEFXLT-* Take 1 tablet by mouth every * Patient not taking: Reported on 03/28/2018 Medication notes this encounter CAMALEXIS LO ORAL >> Federica Cunningham Ma 04/02/2018 1:22 PM >> FEDERICA CUNNINGHAM MA Apr 02, 2018 1:22 PM Pt no longer taking Problem List As Of Date 04/02/2018 Noted Resolved Hypermetropia [H52.00] INVALID FOR* Regular astigmatism [H52.229] INVALID FOR* Asthma [J45.909] INVALID FOR* Celiac disease [K90.0] INVALID FOR* Irritable bowel syndrome [K58.9] INVALID FOR* More... Seasonal allergies [J30.2] INVALID FOR* Abdominal cramping, generalized [R10.84] INVALID FOR*03/09/2016 with [facility]*INVALID FOR* More... Abdominal pain during in second trime*INVALID FOR* More... History of depression [Z86.59] INVALID FOR* More... Positive urine drug screen [R82.5] INVALID FOR* More... Insufficient weight gain during , ante*INVALID FOR* Other instructions from your clinician: SEQUENTIAL SCREENINGS The [facility] offers sequential screenings for women who are interested in screenings for chromosomal abnormalities and certain defects during a . The sequential screen combines ultrasound and blood tests to determine the risk of chromosomal abnormalities, including Down's Syndrome (Trisomy 21) and Trisomy 18, as well as open neural tube defects including spina bifida. Ultrasound examination is performed between 11 weeks and 13 weeks gestational age. Blood tests are drawn after the ultrasound and again later in the between 15 and 21 weeks gestational age. Please let your physician know if you are interested in this testing. It will require an appointment with our veterinary technician assistant. This is not an ultrasound performed by a physician in our office during a routine visit. SIGNS AND SYMPTOMS OF LABOR 1. Contractions every 10 minutes or more often 2. Clear, pink, or brownish fluid (water) leaking from vagina 3. Feeling that baby is pushing down, pressure 4. Low, dull backache 5. Cramps that feel like a period 6. Cramps with or without diarrhea If you notice any of the above symptoms, contact our office at [phone] and ask to speak with a nurse. After hours, you can call doctors registry at [phone] OR call [facility] at [phone] and ask to have the doctor design and sales consultant paged. If you consider this an emergency, dial 5-0-3 or go to your nearest emergency department. NEED HELP? Are you dealing with a violent or abusive relationship? Are you a victim of rape or sexual assult? Call [facility] ([place]) 24 hour Crisis Hotline: 850.197.6818 or 643-961-0303. MANUAL Your Guide to a Healthy manual is now on-line. Visit [email or web address] to download your free copy Prescriptions ordered this encounter Disp Refills Start End METOCLOPRAMIDE 5 MG TABLET 30 t* 0 04/02/2018 Route: ORAL Sig: Take 1 tablet by mouth four times daily. Medications Discontinued During This Encounter L-NORGEST/E.ESTRADIOL-E.ESTRAD (CAMR* 04/02/2018 Class: Historical Med Route: ORAL Sig: Take by mouth once daily. Disc: Discontinued by Patient Disposition: Return if symptoms worsen or fail to improve, for as scheduled. Follow-up and Disposition History Recorded Encounter Status:Closed by MICHELLE SILVA on 04/05/18 CNNURSE Observed: 03/28/2018 Status: COMPLETED Source: [place] 1:30 PM [facility] REPOSITORY Nurse Visit (WOOB) BANBURY,WHITMAN N ([id number]) 1995 F Date Time Provider Department 03/28/18 1:30 PM NURSE YOSSI [facility] During your visit today, we recorded the following information about you: Last Period 11/16/17 Amrit Booker RN 03/28/2018 2:10 PM Signed SEQUENTIAL SCREENINGS The [facility] offers sequential screenings for women who are interested in screenings for chromosomal abnormalities and certain defects during a . The sequential screen combines ultrasound and blood tests to determine the risk of chromosomal abnormalities, including Down's Syndrome (Trisomy 21) and Trisomy 18, as well as open neural tube defects including spina bifida. Ultrasound examination is performed between 11 weeks and 13 weeks gestational age. Blood tests are drawn after the ultrasound and again later in the between 15 and 21 weeks gestational age. Please let your physician know if you are interested in this testing. It will require an appointment with our veterinary technician assistant. This is not an ultrasound performed by a physician in our office during a routine visit. SIGNS AND SYMPTOMS OF LABOR 1. Contractions every 10 minutes or more often 2. Clear, pink, or brownish fluid (water) leaking from vagina 3. Feeling that baby is pushing down, pressure 4. Low, dull backache 5. Cramps that feel like a period 6. Cramps with or without diarrhea If you notice any of the above symptoms, contact our office at [phone] and ask to speak with a nurse. After hours, you can call doctors registry at [phone] OR call [facility] at [phone] and ask to have the doctor design and sales consultant paged. If you consider this an emergency, dial 9-1-1 or go to your nearest emergency department. Cord-Blood Banking Up until recently, the umbilical cord--along with the blood that remained in it after a baby was born and the cord cut--was simply discarded by the hospital. Then, in the late 1980s, researchers discovered that cord blood possessed unusual properties that made it useful in the treatment of patients with some cancers and other illnesses. While the actual process of collecting cord blood is straightforward, many parents are not even aware that this option now exists, much less familiar with all the issues involved. The case for saving your baby's cord blood The blood running back and forth between your baby and the placenta is full of immature cells called stem cells. Unlike embryonic stem cells, which have the ability to develop into any type of body cell, cord-blood stem cells already are locked into a certain, vital function: making all the different components of the blood, such as platelets, white blood cells, and red blood cells-serving, in effect, like bone marrow. When transfused into a patient whose own blood cells have faulty genetic coding or have been destroyed by chemotherapy or other cancer treatments, the cord-blood cells can implant themselves in the bone marrow and generate legions of new, healthy cells. These days, cord-blood transplants most commonly are used in cancer patients when a donor can't be found for a bone-marrow transplant. The treatment is particularly effective in young patients-the [facility] Cord Blood Bank reports a 70 percent success rate in children, but only 20 to 40 percent in adults. Researchers envision improving those odds and see many future applications as well, such as curing sickle cell disease and other blood-related genetic illnesses. So there is a possibility that your child, or someone else, may need these super-healthy and versatile cells one day. The drawbacks Aside from not knowing about this medical option, the main reason most people do not save their baby's stem cells is cost. In a private blood bank, the initial costs run from $275 to $1,500. Most also charge a yearly storage fee of $50 to $95. The advantage of using a private bank is that your sample is saved for only you to use. An alternative to private banking Public cord-blood moya are an alternative. These cost no money to use, but your sample is not specifically saved for you. Another person with a more immediate need may use it. If the time should come that you need stem cells, yours may still be available, or you may use donations from other people without charge. You also can direct your sample to go to a relative with an immediate need if the blood type matches. Anyone else needing to use stem cells from a public bank who has not been a donor must pay for it, sometimes tens of thousands of dollars. Will my family benefit from saving stem cells? Right now, situations in which stem cells would be helpful are quite rare. As mentioned earlier, stem-cell transplants are most commonly used for rare genetic conditions and for some types of cancer, including leukemia and lymphoma. And even with these present uses, many questions remain. In cancer treatment, for example, some researchers are concerned about the wisdom of transplanting back into the child the same cells that already showed a propensity to become malignant. Doctors also aren't sure if the number of cells taken at the time of would be enough to treat a full-grown 16-year-old. It is also not completely clear how active the cells would be after years of being stored. The treatment is so new and rare, we just don't have the data yet to resolve these important issues. What do the experts say? The [place] [employer] encourages philanthropic blood banking in public moya, but only for families with a current or potential need. Blood-bank proponents encourage any kind of banking, pointing out that research is getting closer and closer to many diverse, live-saving applications. How do I decide? Each family must weigh the pros and cons for themselves. Some families say that any cost is worth their peace of mind. Others say that in the face of uncertainty about the effectiveness of the treatment, they will use their resources elsewhere. Some choose the middle ground of donating publicly, knowing that their sample might benefit another family, if not themselves. For more information, ask your doctor or nurse, and be sure to check out our article on the technical aspects of cord-blood banking. Technical Aspects of Cord-Blood Banking If you are interested in storing your baby's umbilical-cord blood because of its possible use in emerging medical treatments, you must make arrangements with a blood bank before your child is born. The collection procedure is quite simple: After delivery of the baby, the umbilical cord is clamped and cut in the usual way. The blood that remains in the umbilical-cord vessels is then collected in sterile containers. The blood may be removed from the cord with a large needle or allowed to flow freely, depending on the company's collection system. The containers may look like large test tubes or like the plastic bags used in a blood bank. It does not cause the mother or the baby any pain to collect the blood, and no blood is taken that the baby needs at the moment. The nurse, machine operator slitter technician, or physician will then label the samples, check them over with you, and package them for a special pickup arranged with a commercial carrier. When the blood arrives at the blood-bank facility, it is processed and the parents are notified. It is then kept in an advanced storage system for years. How do I know that my sample is safe? Power outages and bankruptcies potentially could threaten any organization, but so far none have been reported. It is to be hoped that the scientists in these moya would arrange for safe transfer to another facility if the need arose. YOU MUST MAKE ARRANGEMENTS AHEAD OF TIME! Public cord-blood moya--DONATION: [employer] [phone] [facility], [facility] Umbilical Cord Blood Bank, Private cord-blood moya--SAVING FOR YOUR OWN USE: [employer], (I think this is the least expensive) [employer] [phone] [employer], [phone]) [employer] [place] [facility], [phone] Cells, [phone] [place] [facility], Cord Blood Registry, [phone]) [employer], An Internet search may provide you with additional listings. Referring Provider: SELF [200] Allergies As of Date: 03/28/2018 Noted Allergy Reaction LATEX 09/18/2012 2 - Rash Comments: gets blisters Date Reviewed: 03/28/2018 Reviewed by: Amrit Booker RN - Fully Assessed Reason for Visit: Care [86] Cmt: Pre-New OB Primary Visit Diagnosis:Insufficient weight gain during , antepartum [O26.10] Other Visit Diagnoses: with care elsewhere in second trimester [Z34.92] Abdominal pain during in second trimester [O26.892, R10.9] History of depression [Z86.59] Positive urine drug screen [R82.5] Supervision of high risk in second trimester [O09.92] Order(s):OBSTETRIC ULTRASOUND WHI [] Order #: [id number]: 1 LIYA PT ED STENCIL TYPIST [] Order #: [id number]: 1 FUTURE LIYA PT ED ANESTHESIA [21190305] Order #: [id number]: 1 FUTURE LIYA PT ED STENCIL TYPIST [] Order #: [id number]: 1 FUTURE LIYA WHAT TO EXPECT DURING YOUR HOSPITAL STAY [] Order #: [id number]: 1 FUTURE LIYA PT ED STENCIL TYPIST [] Order #: [id number]: 1 FUTURE LIYA PT ED STENCIL TYPIST [] Order #: [id number]: 1 FUTURE LIYA PT ED STENCIL TYPIST [] Order #: [id number]: 1 FUTURE LIYA PT ED STENCIL TYPIST [] Order #: [id number]: 1 LIYA PT ED ANESTHESIA [21190305] Order #: [id number]: 1 LIYA PT ED STENCIL TYPIST [] Order #: [id number]: 1 LIYA WHAT TO EXPECT DURING YOUR HOSPITAL STAY [] Order #: [id number]: 1 LIYA PT ED STENCIL TYPIST [] Order #: [id number]: 1 LIYA PT ED STENCIL TYPIST [] Order #: [id number]: 1 LIYA PT ED STENCIL TYPIST [] Order #: [id number]: 1 CBC [SQCBC] Order #: [id number] GC/CHLAMYDIA DNA DET [SQGCCAMP] Order #: [id number] CBC [SQCBC] Order #: [id number] HEP B SURF AG SCRN [SQHBSAG] Order #: [id number] RPR SCRN [SQRPR] Order #: [id number] HIV 1,2 COMBO (AG/AB) [SQHIV12] Order #: [id number] TYPE + SCREEN (EXTERNAL LAB) [1396346] Order #: [id number] Prescriptions as of 03/28/2018 Sig: FLUOXETINE 40 MG CAPSULE Take 40 mg by mouth once tolu* RMDXI-3-PCG-EPA-ALA-VIT D3 OR* Take by mouth. VITAMIN,CALCIUM,MINE* Take 1 tablet by mouth. HYDROXYZINE PAMOATE 25 MG CAP* Take 25 mg by mouth three ok* RANITIDINE 150 MG CAPSULE Take 150 mg by mouth twice da* IBCLMRJGZ-HHCEVDCJD-QDTVMZCS-* Take 1 tablet by mouth every * HYOSCYAMINE ER 0.375 MG TABLE* Take 1 tablet by mouth twice * DSMSTYXZA-VZZIGSPEB-QPPBYSAH-* Take 1 tablet by mouth every * Patient not taking: Reported on 03/28/2018 CAMALEXIS LO ORAL Take by mouth once daily. Problem List As Of Date 03/28/2018 Noted Resolved Hypermetropia [H52.00] INVALID FOR* Regular astigmatism [H52.229] INVALID FOR* Asthma [J45.909] INVALID FOR* Celiac disease [K90.0] INVALID FOR* Irritable bowel syndrome [K58.9] INVALID FOR* More... Seasonal allergies [J30.2] INVALID FOR* Abdominal cramping, generalized [R10.84] INVALID FOR*03/09/2016 with [facility]*INVALID FOR* More... Abdominal pain during in second trime*INVALID FOR* More... History of depression [Z86.59] INVALID FOR* More... Positive urine drug screen [R82.5] INVALID FOR* More... Insufficient weight gain during , ante*INVALID FOR* Other instructions from your clinician: SEQUENTIAL SCREENINGS The [facility] offers sequential screenings for women who are interested in screenings for chromosomal abnormalities and certain defects during a . The sequential screen combines ultrasound and blood tests to determine the risk of chromosomal abnormalities, including Down's Syndrome (Trisomy 21) and Trisomy 18, as well as open neural tube defects including spina bifida. Ultrasound examination is performed between 11 weeks and 13 weeks gestational age. Blood tests are drawn after the ultrasound and again later in the between 15 and 21 weeks gestational age. Please let your physician know if you are interested in this testing. It will require an appointment with our veterinary technician assistant. This is not an ultrasound performed by a physician in our office during a routine visit. SIGNS AND SYMPTOMS OF LABOR 1. Contractions every 10 minutes or more often 2. Clear, pink, or brownish fluid (water) leaking from vagina 3. Feeling that baby is pushing down, pressure 4. Low, dull backache 5. Cramps that feel like a period 6. Cramps with or without diarrhea If you notice any of the above symptoms, contact our office at [phone] and ask to speak with a nurse. After hours, you can call doctors registry at [phone] OR call [facility] at [phone] and ask to have the doctor design and sales consultant paged. If you consider this an emergency, dial 9-1-1 or go to your nearest emergency department. Cord-Blood Banking Up until recently, the umbilical cord--along with the blood that remained in it after a baby was born and the cord cut--was simply discarded by the hospital. Then, in the late , researchers discovered that cord blood possessed unusual properties that made it useful in the treatment of patients with some cancers and other illnesses. While the actual process of collecting cord blood is straightforward, many parents are not even aware that this option now exists, much less familiar with all the issues involved. The case for saving your baby's cord blood The blood running back and forth between your baby and the placenta is full of immature cells called stem cells. Unlike embryonic stem cells, which have the ability to develop into any type of body cell, cord-blood stem cells already are locked into a certain, vital function: making all the different components of the blood, such as platelets, white blood cells, and red blood cells-serving, in effect, like bone marrow. When transfused into a patient whose own blood cells have faulty genetic coding or have been destroyed by chemotherapy or other cancer treatments, the cord-blood cells can implant themselves in the bone marrow and generate legions of new, healthy cells. These days, cord-blood transplants most commonly are used in cancer patients when a donor can't be found for a bone-marrow transplant. The treatment is particularly effective in young patients- the [facility] Cord Blood [facility] reports a 70 percent success rate in children, but only 20 to 40 percent in adults. Researchers envision improving those odds and see many future applications as well, such as curing sickle cell disease and other blood-related genetic illnesses. So there is a possibility that your child, or someone else, may need these super-healthy and versatile cells one day. The drawbacks Aside from not knowing about this medical option, the main reason most people do not save their baby's stem cells is cost. In a private blood bank, the initial costs run from $275 to $1,500. Most also charge a yearly storage fee of $50 to $95. The advantage of using a private bank is that your sample is saved for only you to use. An alternative to private banking Public cord-blood moya are an alternative. These cost no money to use, but your sample is not specifically saved for you. Another person with a more immediate need may use it. If the time should come that you need stem cells, yours may still be available, or you may use donations from other people without charge. You also can direct your sample to go to a relative with an immediate need if the blood type matches. Anyone else needing to use stem cells from a public bank who has not been a donor must pay for it, sometimes tens of thousands of dollars. Will my family benefit from saving stem cells? Right now, situations in which stem cells would be helpful are quite rare. As mentioned earlier, stem-cell transplants are most commonly used for rare genetic conditions and for some types of cancer, including leukemia and lymphoma. And even with these present uses, many questions remain. In cancer treatment, for example, some researchers are concerned about the wisdom of transplanting back into the child the same cells that already showed a propensity to become malignant. Doctors also aren't sure if the number of cells taken at the time of would be enough to treat a full-grown 16-year-old. It is also not completely clear how active the cells would be after years of being stored. The treatment is so new and rare, we just don't have the data yet to resolve these important issues. What do the experts say? The [place] [employer] encourages philanthropic blood banking in public moya, but only for families with a current or potential need. Blood-bank proponents encourage any kind of banking, pointing out that research is getting closer and closer to many diverse, live-saving applications. How do I decide? Each family must weigh the pros and cons for themselves. Some families say that any cost is worth their peace of mind. Others say that in the face of uncertainty about the effectiveness of the treatment, they will use their resources elsewhere. Some choose the middle ground of donating publicly, knowing that their sample might benefit another family, if not themselves. For more information, ask your doctor or nurse, and be sure to check out our article on the technical aspects of cord-blood banking. Technical Aspects of Cord-Blood Banking If you are interested in storing your baby's umbilical- cord blood because of its possible use in emerging medical treatments, you must make arrangements with a blood bank before your child is born. The collection procedure is quite simple: After delivery of the baby, the umbilical cord is clamped and cut in the usual way. The blood that remains in the umbilical-cord vessels is then collected in sterile containers. The blood may be removed from the cord with a large needle or allowed to flow freely, depending on the company's collection system. The containers may look like large test tubes or like the plastic bags used in a blood bank. It does not cause the mother or the baby any pain to collect the blood, and no blood is taken that the baby needs at the moment. The nurse, machine operator slitter technician, or physician will then label the samples, check them over with you, and package them for a special pickup arranged with a commercial carrier. When the blood arrives at the blood- bank facility, it is processed and the parents are notified. It is then kept in an advanced storage system for years. How do I know that my sample is safe? Power outages and bankruptcies potentially could threaten any organization, but so far none have been reported. It is to be hoped that the scientists in these moya would arrange for safe transfer to another facility if the need arose. YOU MUST MAKE ARRANGEMENTS AHEAD OF TIME! Public cord-blood moya--DONATION: [employer] [phone] [facility], [facility] Umbilical Cord Blood Bank, Private cord-blood moya--SAVING FOR YOUR OWN USE: [employer], (I think this is the least expensive) [employer] [phone] [employer], ([phone]) [employer] [place] [facility], [phone] Cells, [phone] [place] [facility], Cord Blood Registry, [phone]) C[employer]OOD [employer], An Internet search may provide you with additional listings. Disposition: Return in 5 days (on 04/02/2018) for New OB with Dr Floyd. Follow-up and Disposition History Recorded Encounter Status:Closed by AMRIT BOOKER RN on 03/28/18 DISCHARGE SUMMARY Observed: 03/19/2018 Status: F Source: [place] 9:40 PM [facility] REPOSITORY [facility] Medical Records Department [address] [place] [address] Discharge Summary 03/19/18 213 MR#: [id number] Acct: [id number] Name: ANTONETTE HENDERSON Rep #: [id number] : 1995 23 From: Camila Maria MD PCP: Ashlie El, ELECTRONICS PRODUCTION SUPERVISOR-C Status: DIS IN Y Location: MS2 [id number] Discharge Date and Diagnosis Date of Admission: 03/16/18 Date of Discharge: 03/19/18 - Primary Discharge Diagnosis 16 wk EGA RLQ pain History of IBS Hospital Course and Treatment Imaging Results: CT negative for appendicitis. Ileus noted. Otherwise negative study. Operations: None Procedures: None Summary of Care Provided: The patient is a 23 year old female 16 + wk EGA, with history of IBS and an extensive workup in the past for abdominal pain by Dr. Yu (two years ago). Patient presented to [facility] ED with CC of severe N/V and unable to keep anything down. Ate at [employer] and developed RLQ pain and severe N/V shortly thereafter. She has had a prior cholecystectomy . Appendix remains. CBC showed slight elevation of WBCs. Pt admitted for serial exams, repeat labs. General surgery consulted., but nonsurgical abdomen with normalization of WBCs CT of pelvis and abdomen negative for appendicitis with mild ileus noted of small bowel. IV fluids, antiemetics given. Reglan, Dulcolax Diet slowly advanced. Tolerated regular diet with continued cramping. Hospitalist consulted re IBS: started on Metamucil, and Bentyl prn for cramping. Ethylbenzene Cracking Supervisor consulted for IBS dietary guidance. Patient requested dischg home then. Discharged home for outpt follow up with grid maker. Discharge Activity: Return to Normal Activity - as tolerated. May resume sexual activity in: No Restrictions - when comfortable Weight Bearing Status: Weight bearing as tolerated - limit to 20 pounds or less for . Additional Activity Instructions:: walk frequently to help with gas. Call your doctor if you observe: Fever of 101 or Higher, Inability to have a bowel movement, Uncontrolled pain Home Medications: Medications to take at Discharge Fluoxetine HCl 80 mg PO QHS 03/15/18 Ranitidine [Zantac] 150 mg PO QHS 03/15/18 buPROPion tablets [Wellbutrin tablets] 100 mg PO QHS 03/15/18 Kerman-3 Fatty Acids/Fish Oil [Kerman 3 1,000 mg Softgel] 1 cap PO DAILY 03/16/18 Pnv No.122/Iron/Folic Acid [ Multi Tablet] 1 tab PO QHS 03/16/18 Acetaminophen [Tylenol] 500 mg PO Q4H PRN PRN tablet 03/19/18 Dicyclomine HCl [Bentyl] 10 mg PO TID PRN #30 capsule 03/19/18 Fluoxetine [Prozac] 40 mg PO BID capsule 03/19/18 Ondansetron [Zofran] 4 mg IV Q8H PRN PRN vial 03/19/18 Psyllium [Metamucil] 1 packet PO DAILY packet 03/19/18 SimETHICONE [Mylicon] 80 mg PO PCHS tablet 03/19/18 buPROPion SR [Wellbutrin SR (150mg tablets)] 150 mg PO QHS tablet.sa 03/19/18 Following Prescrptions Were Given to Patient: Dicyclomine HCl [Bentyl] 10 mg PO TID PRN #30 capsule PRN Reason: Cramp Primary Care Physician: Ashlie El NP-C [Primary Care Provider] - Please Follow Up With: Camila Maria MD - [phone] When: within 1 wk Medical Necessity - Tobacco Use Smoking Status: Never smoker Tobacco Use: Non-smoker Meaningful Use Info Meaningful Use Diagnoses (Choose all that apply): None applicable 03/19/182139 <Electronically signed by Camila Maria MD> Date Camila Maria MD Cosigner Signature (if applicable): Date CC: HEMA El; Camila Maria MD Signed DISCHARGE INSTRUCTION Observed: 03/19/2018 Status: F Source: [place] 2:41 PM [facility] REPOSITORY [facility] Medical Records Department [address] [place] [address] Instructions for Home/Discharge Instructions 03/19/18 1435 MR#: [id number] Acct: [id number] Name: ANTONETTE HENDERSON Rep #: [id number] : 1995 23 From: Camila Maria MD PCP: HEMA Lopez Status: ADM IN - Discharge Diagnoses Current Active Problems: Current Active and Chronic Problems (Last Updated 03/16/18 @ 04:29 by Maura Ding MD) Right lower quadrant abdominal pain (Acute) Ileus (Acute) 16 weeks gestation of (Acute) Nausea and vomiting (Acute) You will use the following diet at home:: Other - Follow diet as recommended by the rn mds for irritable bowel syndrome. Avoiding foods likely to be gas forming Your food should be the consistency of: Regular Discharge Activity: Return to Normal Activity - as tolerated. May resume sexual activity in: No Restrictions - when comfortable Weight Bearing Status: Weight bearing as tolerated - limit to 20 pounds or less for . Additional Activity Instructions:: walk frequently to help with gas. Call your doctor if you observe: Fever of 101 or Higher, Inability to have a bowel movement, Uncontrolled pain Allergies/Adverse Reactions: Allergies latex Allergy (Verified 03/15/18 22:25) Rash Medications to take at Discharge Fluoxetine HCl 80 mg PO QHS 03/15/18 Ranitidine [Zantac] 150 mg PO QHS 03/15/18 buPROPion tablets [Wellbutrin tablets] 100 mg PO QHS 03/15/18 Kerman-3 Fatty Acids/Fish Oil [Kerman 3 1,000 mg Softgel] 1 cap PO DAILY 03/16/18 Pnv No.122/Iron/Folic Acid [ Multi Tablet] 1 tab PO QHS 03/16/18 Acetaminophen [Tylenol] 500 mg PO Q4H PRN PRN tablet 03/19/18 Dicyclomine HCl [Bentyl] 10 mg PO TID PRN #30 capsule 03/19/18 Fluoxetine [Prozac] 40 mg PO BID capsule 03/19/18 Ondansetron [Zofran] 4 mg IV Q8H PRN PRN vial 03/19/18 Psyllium [Metamucil] 1 packet PO DAILY packet 03/19/18 SimETHICONE [Mylicon] 80 mg PO PCHS tablet 03/19/18 buPROPion SR [Wellbutrin SR (150mg tablets)] 150 mg PO QHS tablet.sa 03/19/18 The following prescriptions were given: Dicyclomine HCl [Bentyl] 10 mg PO TID PRN #30 capsule PRN Reason: Cramp Primary Care Physician: Ashlie El, HEMA [Primary Care Provider] - Test Results: Test results from this visit will be discussed in further detail at your follow-up appointment, if applicable. Please Follow Up With: Camila Maria MD - [phone] When: within 1 wk Proposed Discharge Date: 03/19/18 03/19/18 1441 <Electronically signed by Camila Maria MD> Date Camila Maria MD CC: ELECTRONICS PRODUCTION SUPERVISOR-C Ashlie El; Loida Meng MD; Alejandra Chacon MD CBC W/DIFF, AUTOMATED Collected: 03/19/2018 Status: F Source: [place] 5:00 AM [facility] REPOSITORY TYPE CODE TESTS RESULT OUT OF RANGE REFERENCE UNITS LAB L100.1000 4.4-11.0 K/mm3 Normal WBC 5.4 LAB L100.1200 4.2-5.4 M/mm3 Low RBC 3.47 LAB L100.1300 12.0-15.0 g/dl Low HGB 11.3 LAB L100.1400 37-47 % Low HCT 33.5 LAB L100.1500 81-99 fL Normal MCV 96.5 LAB L100.1600 27.0-32.0 pg High MCH 32.6 LAB L100.1700 32-36 g/gl Normal MCHC 33.7 LAB L100.1810 11.6-14.6 % Normal RDW CV 13.3 LAB L100.1820 35.1-43.9 fl High RDW SD 45.4 LAB L100.1900 150-450 K/mm3 Normal PLT 212 LAB L100.2000 6.2-12.0 fl Normal MPV 11.5 LAB L100.2100 47-70 % Low NEUT% 46.5 LAB L100.2200 19-41 % Normal LY% 38.8 LAB L100.2300 0-10 % Normal MONO% 9.7 LAB L100.2400 0-5 % Normal EO% 4.6 LAB L100.2500 0-1 % Normal BASO% 0.2 LAB L100.2550 0.0-0.9 % Normal IM GRAN % 0.200 Result Comment: IG% - Immature Granulocytes (promyelocytes, myelocytes and metamyelocytes) > 1% indicates that a LEFT SHIFT is Present. LAB L100.2620 2.0-7.7 X10 3/uL Normal Absolute Neut 2.5 LAB L100.2720 0.83-4.51 X10 3/ul Normal Absolute Lymph 2.09 Performed By: #### L100.0100 #### [facility] [address] [place], [address] COMPREHENSIVE METABOLIC Collected: 03/19/2018 Status: F Source: [facility] 5:00 AM [facility] REPOSITORY TYPE CODE TESTS RESULT OUT OF RANGE REFERENCE UNITS LAB L501.0100 74-106 mg/dL Normal GLU 92 Result Comment: Please note revised GLUCOSE reference range effective 2017. LAB L501.1000 7-18 mg/dL Low BUN 3 LAB L501.1100 0.55-1.02 mg/dL Low CREAT,SERUM 0.41 Result Comment: The validity of the calculated GFR AND GFRAA in patients over 70 years has not been determined. Clinical correlation is essential. LAB L501.1110 >60 mL/min Normal EST GFR 206 Result Comment: Non- GFR Calc LAB L501.1115 >60 mL/min Normal EST GFR - AA 249 Result Comment: GFR Calc LAB L501.1255 ml/min Normal Estimated CRCL 185.85 LAB L501.1300 10-20 RATIO Low BUN/CRE 7.3 LAB L501.1500 6.4-8. g/dL Low 2 T PROT 5.5 LAB L501.1800 3.2-5. g/dL Low 0 ALB 2.4 LAB L501.1950 2.2-4. g/dL 2 GLOB Normal 3.1 LAB L501.2000 0.9-2. RATIO Low 4 A/G 0.8 LAB L501.2200 8.5-10 mg/dL Low .1 CA 7.8 LAB L501.4100 15-37 U/L AST Normal 30 LAB L501.4305 45-117 U/L ALK P Normal 70 LAB L501.4405 13-56 U/L ALT Normal 33 LAB L501.4600 0.20-1 mg/dL Low .00 T BILI 0.10 LAB L501.5300 136-14 mmol/L 5 NA Normal 142 LAB L501.5600 3.5-5. mmol/L 1 K Normal 3.6 LAB L501.5900 98-107 mmol/L High CL 110 LAB L501.6100 21.0-3 mmol/L 2.0 CO2 Normal 22.0 LAB L501.6200 5-15 GAP Normal 10 Performed By: #### L500.4050 #### [facility] [address] [place], [address] CBC W/DIFF, AUTOMATED Collected: 03/18/2018 Status: F Source: [place] 6:06 AM [facility] REPOSITORY TYPE CODE TESTS RESULT OUT OF RANGE REFERENCE UNITS LAB L100.1000 4.4-11.0 K/mm3 Normal WBC 4.5 LAB L100.1200 4.2-5.4 M/mm3 Low RBC 3.17 LAB L100.1300 12.0-15.0 g/dl Low HGB 10.3 LAB L100.1400 37-47 % Low HCT 30.7 LAB L100.1500 81-99 fL Normal MCV 96.8 LAB L100.1600 27.0-32.0 pg High MCH 32.5 LAB L100.1700 32-36 g/gl Normal MCHC 33.6 LAB L100.1810 11.6-14.6 % Normal RDW CV 13.3 LAB L100.1820 35.1-43.9 fl High RDW SD 45.2 LAB L100.1900 150-450 K/mm3 Normal PLT 200 LAB L100.2000 6.2-12.0 fl Normal MPV 10.9 LAB L100.2100 47-70 % Low NEUT% 35.6 LAB L100.2200 19-41 % High LY% 43.8 LAB L100.2300 0-10 % High MONO% 14.3 LAB L100.2400 0-5 % High EO% 5.7 LAB L100.2500 0-1 % Normal BASO% 0.4 LAB L100.2550 0.0-0.9 % Normal IM GRAN % 0.200 Result Comment: IG% - Immature Granulocytes (promyelocytes, myelocytes and metamyelocytes) > 1% indicates that a LEFT SHIFT is Present. LAB L100.2620 2.0-7.7 X10 3/uL Low Absolute Neut 1.6 LAB L100.2720 0.83-4.51 X10 3/ul Normal Absolute Lymph 1.99 Performed By: #### L100.0100 #### [facility] [address] [place], [address] COMPREHENSIVE METABOLIC Collected: 03/18/2018 Status: F Source: [facility] 6:06 AM [facility] REPOSITORY TYPE CODE TESTS RESULT OUT OF RANGE REFERENCE UNITS LAB L501.0100 74-106 mg/dL Normal GLU 86 Result Comment: Please note revised GLUCOSE reference range effective 2017. LAB L501.1000 7-18 mg/dL Low BUN 1 LAB L501.1100 0.55-1.02 mg/dL Low CREAT,SERUM 0.31 Result Comment: The validity of the calculated GFR AND GFRAA in patients over 70 years has not been determined. Clinical correlation is essential. LAB L501.1110 >60 mL/min Normal EST GFR 289 Result Comment: Non- GFR Calc LAB L501.1115 >60 mL/min Normal EST GFR - AA 350 Result Comment: GFR Calc LAB L501.1255 ml/min Normal Estimated CRCL 245.81 LAB L501.1300 10-20 RATIO Low BUN/CRE 3.3 LAB L501.1500 6.4-8. g/dL Low 2 T PROT 5.0 LAB L501.1800 3.2-5. g/dL Low 0 ALB 2.2 LAB L501.1950 2.2-4. g/dL 2 GLOB Normal 2.8 LAB L501.2000 0.9-2. RATIO Low 4 A/G 0.8 LAB L501.2200 8.5-10 mg/dL Low .1 CA 7.9 LAB L501.4100 15-37 U/L AST Normal 25 LAB L501.4305 45-117 U/L ALK P Normal 50 LAB L501.4405 13-56 U/L ALT Normal 24 LAB L501.4600 0.20-1 mg/dL Low .00 T BILI < 0.10 LAB L501.5300 136-14 mmol/L 5 NA Normal 141 LAB L501.5600 3.5-5. mmol/L 1 K Normal 3.5 LAB L501.5900 98-107 mmol/L High CL 112 LAB L501.6100 21.0-3 mmol/L 2.0 CO2 Normal 21.0 LAB L501.6200 5-15 GAP Normal 8 Performed By: #### L500.4050 #### [facility] [address] [place], [address] CBC W/DIFF, AUTOMATED Collected: 03/17/2018 Status: F Source: [place] 5:43 AM [facility] REPOSITORY TYPE CODE TESTS RESULT OUT OF RANGE REFERENCE UNITS LAB L100.1000 4.4-11.0 K/mm3 Normal WBC 4.9 LAB L100.1200 4.2-5.4 M/mm3 Low RBC 3.27 LAB L100.1300 12.0-15.0 g/dl Low HGB 10.5 LAB L100.1400 37-47 % Low HCT 31.6 LAB L100.1500 81-99 fL Normal MCV 96.6 LAB L100.1600 27.0-32.0 pg High MCH 32.1 LAB L100.1700 32-36 g/gl Normal MCHC 33.2 LAB L100.1810 11.6-14.6 % Normal RDW CV 13.3 LAB L100.1820 35.1-43.9 fl High RDW SD 45.0 LAB L100.1900 150-450 K/mm3 Normal PLT 205 LAB L100.2000 6.2-12.0 fl Normal MPV 11.2 LAB L100.2100 47-70 % Normal NEUT% 68.9 LAB L100.2200 19-41 % Low LY% 18.9 LAB L100.2300 0-10 % Normal MONO% 7.7 LAB L100.2400 0-5 % Normal EO% 3.7 LAB L100.2500 0-1 % Normal BASO% 0.4 LAB L100.2550 0.0-0.9 % Normal IM GRAN % 0.400 Result Comment: IG% - Immature Granulocytes (promyelocytes, myelocytes and metamyelocytes) > 1% indicates that a LEFT SHIFT is Present. LAB L100.2620 2.0-7.7 X10 3/uL Normal Absolute Neut 3.4 LAB L100.2720 0.83-4.51 X10 3/ul Normal Absolute Lymph 0.93 Performed By: #### L100.0100 #### [facility] [address] [place], [address] COMPREHENSIVE METABOLIC Collected: 03/17/2018 Status: F Source: [facility] 5:43 AM [facility] REPOSITORY TYPE CODE TESTS RESULT OUT OF RANGE REFERENCE UNITS LAB L501.0100 74-106 mg/dL Normal GLU 90 Result Comment: Please note revised GLUCOSE reference range effective 2017. LAB L501.1000 7-18 mg/dL Low BUN 1 LAB L501.1100 0.55-1.02 mg/dL Low CREAT,SERUM 0.36 Result Comment: The validity of the calculated GFR AND GFRAA in patients over 70 years has not been determined. Clinical correlation is essential. LAB L501.1110 >60 mL/min Normal EST GFR 240 Result Comment: Non- GFR Calc LAB L501.1115 >60 mL/min Normal EST GFR - AA 290 Result Comment: GFR Calc LAB L501.1255 ml/min Normal Estimated CRCL 211.67 LAB L501.1300 10-20 RATIO Low BUN/CRE 2.8 LAB L501.1500 6.4-8. g/dL Low 2 T PROT 5.0 LAB L501.1800 3.2-5. g/dL Low 0 ALB 2.2 LAB L501.1950 2.2-4. g/dL 2 GLOB Normal 2.8 LAB L501.2000 0.9-2. RATIO Low 4 A/G 0.8 LAB L501.2200 8.5-10 mg/dL Low .1 CA 7.2 LAB L501.4100 15-37 U/L AST Normal 30 LAB L501.4305 45-117 U/L ALK P Normal 53 LAB L501.4405 13-56 U/L ALT Normal 22 LAB L501.4600 0.20-1 mg/dL Low .00 T BILI 0.10 LAB L501.5300 136-14 mmol/L 5 NA Normal 139 LAB L501.5600 3.5-5. mmol/L Low 1 K 3.0 LAB L501.5900 98-107 mmol/L High CL 112 LAB L501.6100 21.0-3 mmol/L Low 2.0 CO2 20.0 LAB L501.6200 5-15 GAP Normal 7 Performed By: #### L500.4050 #### [facility] [address] [facility] [place], [address] CONSULTATION Observed: 03/16/2018 Status: F Source: [place] 7:30 AM [facility] REPOSITORY [facility] Medical Records Department [address] [place] [address] Consultation 03/16/18 0356 MR#: [id number] Acct: [id number] Name: ANTONETTE HENDERSON Jayant Rep #: [id number] : 1995 23 From: Alejandra Chacon MD PCP: HEMA Lopez Status: ADM SARIKA Y Location: [place] [address] Reason for Consult Date of Consultation: 03/16/18 History of Present Illness: The patient is a 23 year old F presents to the ER due to abdominal pain nausea and vomiting. Patient is 16 weeks . Patient states that her pain started around 8 PM and then she had a lot of vomiting afterwards and still has the acidic taste in her mouth. Patient complains of occasional sharp pains on the right side of her abdomen currently states that about a 5/10 and she does state that sometimes the pain does go around to her back as well. Patient had a CT abdomen pelvis did show mild dilation of the small bowel read as a paralytic ileus but the appendix was seen and normal. Patient does have a slight leukocytosis but again the patient is also and has been vomiting. Patient has been does state that he had [employer] for lunch and he even felt a little sick afterwards but no nausea or vomiting. patient did urgently have to have a bowel movement about 2:00 today; however, patient does have IBS type symptoms where she only has bowel movements about once every 4 days normally. Also patient needs had the flu recently and was visiting. Past Medical History Allergies latex Allergy (Verified 03/15/18 22:25) Rash Home Medications: Ambulatory Orders Medication Instructions Recorded Fluoxetine HCl 80 mg PO QHS 03/15/18 Ranitidine [Zantac] 150 mg PO QHS 03/15/18 buPROPion tablets [Wellbutrin 100 mg PO QHS 03/15/18 Surgical History: Surgical History (Last Updated 03/16/18 @ 04:35 by Maura Ding MD) H/O shoulder surgery Z98.890 History of tonsillectomy and adenoidectomy Z98.890 S/P cholecystectomy K58.9 Psychiatric History: No pertinent psych hx INSURANCE VERIFIER History: - - Patient is 16 weeks Lives: Spouse/ Significant Other Smoking Status: Never smoker - *Family History Maternal Family History: Family History (Last Updated 03/16/18 @ 04:36 by Maura Ko MD) Mother Endometrial cancer History Items: No pertinent history Review of Systems Constitutional: Reports: Anorexia HEENT: Denies: Difficulty Swallowing Cardiovascular: Denies: Chest Pain Respiratory: Denies: Shortness of Breath Gastrointestinal: Reports: Abdominal Pain, Nausea, Vomiting Patient Problems: Active and Suspected Problems (Last Updated 03/16/18 @ 04:29 by Maura Ding MD) Right lower quadrant abdominal pain (Acute) Ileus (Acute) 16 weeks gestation of (Acute) Nausea and vomiting (Acute) - Physical Exam General: Alert, Oriented x3, Cooperative HEENT: Atraumatic Cardiovascular: Regular rate Abdomen: Soft, Distended - mild, Tender - rlq,suprapubic>ruq, no PS, - - 16 weeks Extremities: No clubbing, No cyanosis, No edema Neurological: Cranial nerves II-XII grossly intact Psych/Mental Status: Normal Affect Vital Signs Temp Pulse Resp BP Pulse Ox 98.4 F 91 18 110/62 96 03/16/18 01:49 03/16/18 03:28 03/16/18 03:28 03/16/18 03:28 03/16/18 03:28 Oxygen Delivery Method Room Air Weight: 121 lb 0.54 oz Body Mass Index (BMI) 20.7 Laboratory Tests Past 24 Hrs WBC 13.4 H RBC 4.38 Hgb 13.9 Hct 40.9 MCV 93.4 MCH 31.7 MCHC 34.0 RDW 12.9 WBC RBC Hgb Hct MCV MCH MCHC RDW RDW Differential Plt Count MPV Immature Gran % (Auto) Neut % (Auto) Assessment/Plan All Active Problems (Last Updated 03/16/18 @ 04:29 by Maura Ding MD) Right lower quadrant abdominal pain (Acute) Ileus (Acute) 16 weeks gestation of (Acute) Nausea and vomiting (Acute) 23-year-old female 16 weeks , abdominal pain, nausea and vomiting 1. Patient CT did show a normal appendix however she did have mildly dilated small bowel throughout and even liquid stool in her cecum area and her transverse colon and more liquid than normal stool in her descending colon. This was read as a possible paralytic ileus, patient did have contrast however it did not only made it to her stomach and first part of her small bowel. On exam patient does have right lower quadrant pain but also has some left lower quadrant pain right upper quadrant pain as well. And with the normal looking appendix on CT I would not expect an ileus to be from that, question if she could have some gastrointestinal issues or even flulike depending on what the niece had as well. We will continue serial abdominal exams. Also discussed with Dr. Maura Ko and she will let us know if there is any changes as well as she is admitting. Alejandra Chacon M.D. Pager: [phone] [facility] [address] [place] [address], [facility], [address] [place] [address] Office: 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 The patient has had decreased appetite with nausea and rare emesis throughout her . She notes a history of IBS and prepregnancy has bowel movements approximately every other day. During has bowel movements approximately every 4 days and often has diarrhea if she takes medications to aid in elimination. She reports eating at [employer] and 30 minutes later developed acute abdominal pain on the right side with profuse vomiting. She has history of a cholecystectomy 3-5 years ago (cannot recall exact dates) and relates she was told her appendix was inflamed at the time but did not need to be removed(?). She has no obstetric complaints. Past Medical History Allergies latex Allergy (Verified 03/15/18 22:25) Rash Home Medications: Ambulatory Orders Medication Instructions Recorded Fluoxetine HCl 80 mg PO DAILY 03/15/18 Ranitidine [Zantac] 150 mg PO BID 03/15/18 buPROPion tablets [Wellbutrin 100 mg PO DAILY 03/15/18 tablets] Surgical History: Surgical History (Last Updated 03/16/18 @ 04:35 by Maura Ding MD) H/O shoulder surgery Z98.890 History of tonsillectomy and adenoidectomy Z98.890 S/P cholecystectomy K58.9 Surgical History: arthscropcy, hip - left, arthroscopy, knee - right Psychiatric History: Anxiety, Depression INSURANCE VERIFIER History: - - LGSIL PAP Lives: Spouse/ Significant Other Smoking Status: Never smoker Tobacco Use: Non-smoker Alcohol: None Drugs: None - *Family History Maternal Family History: Family History (Last Updated 03/16/18 @ 04:36 by Maura Ko MD) Mother Endometrial cancer History Items: No pertinent history Review of Systems Constitutional: Reports: Anorexia, Fatigue. Denies: Fever Cardiovascular: Denies: Chest Pain Respiratory: Denies: Shortness of Breath Gastrointestinal: Reports: Abdominal Pain, Constipation, Nausea, Vomiting. Denies: Diarrhea Genitourinary: Reports: Frequency. Denies: Dysuria Gynecological: Denies: Vaginal bleeding VTE Information - Inpt Only VTE Present on Admission: No VTE Mechan Device Prophylaxis: None VTE Pharm Prophylaxis ordered?: No Patient Problems: Active and Suspected Problems (Last Updated 03/16/18 @ 04:29 by Maura Ding MD) Right lower quadrant abdominal pain (Acute) Ileus (Acute) 16 weeks gestation of (Acute) Nausea and vomiting (Acute) Subjective: See HPI - Physical Exam General: Alert, Oriented x3, Cooperative, No apparent distress HEENT: Atraumatic, Normocephalic Lungs: Clear to auscultation, Normal air movement Cardiovascular: Regular rate, Regular Rhythm, Normal S1, Normal S2 Abdomen: Bowel Sounds Present, Soft, Non-Distended, Gravid, - - +RUQ and RLQ tenderness without rebound or guarding Extremities: No edema, No Calf Tenderness Neurological: Neuro grossly intact Psych/Mental Status: Normal Affect, Appropriate, Alert and oriented to time, place, person, mood and affect Comment: FHT in ER 160 bpm Vital Signs Temp Pulse Resp BP Pulse Ox 98.4 F 91 18 110/62 96 03/16/18 01:49 03/16/18 03:28 03/16/18 03:28 03/16/18 03:28 03/16/18 03:28 Oxygen Delivery Method Room Air Weight: 54.9 kg Body Mass Index (BMI) 20.7 Laboratory Tests Past 24 Hrs WBC 13.4 H RBC 4.38 Hgb 13.9 Hct 40.9 MCV 93.4 MCH 31.7 MCHC 34.0 RDW 12.9 WBC RBC Hgb Hct MCV MCH MCHC RDW RDW Differential Plt Count MPV Immature Gran % (Auto) Neut % (Auto) Assessment/Plan All Active Problems (Last Updated 03/16/18 @ 04:29 by Maura Ding MD) Right lower quadrant abdominal pain (Acute) Ileus (Acute) 16 weeks gestation of (Acute) Nausea and vomiting (Acute) 23yo G1 @ 16wga admitted with ileus - possible IBS exacerbation by , however, cannot r/o infectious etiology. -CT A/P reviewed - No acute intra-abdominal process -Mild leukocytosis, may also be due to or hemoconcentration. -Discussed presentation with Dr. Chacon, consulting from General Surgery. Will plan for bowel rest, serial abdominal exams. -Reglan, Dulcolax suppository -T qshift Code Visit Inpatient E AND M: 46246 Init Hosp L3 03/16/18 0442 <Electronically signed by Maura Ding MD> Date Maura Ding MD Cosigner Signature: Date (if applicable) CC: ELECTRONICS PRODUCTION SUPERVISOR-C Ashlie El; Maura Ding MD Signed EMERGENCY DEPARTMENT Observed: 03/16/2018 Status: F Source: [facility] SUMMARY 3:24 AM [facility] REPOSITORY [facility] Medical Records Department [address] [place] [address] Emergency Department Summary 03/15/18 2353 MR#: [id number] Acct: [id number] Name: ANTONETTE HENDERSON Rep #: [id number] : 1995 23 From: Tristan Salas PCP: HEMA Lopez Status: ADM SARIKA - ER Visit Summary Date of Service: 03/15/18 Chief Complaint: Abdominal pain, nausea and vomiting History of Present Illness: The patient is a 23 F patient presents with right lower quadrant abdominal pain 2 hours prior to arrival. Nausea and vomiting shortly after. No hematemesis. States dry heaving. Patient 16-week gestation followed by Dr. Maria. Last seen 2 weeks ago. Urinary frequency. History of cholecystectomy 2 years ago in [place]. Pain is sharp in nature. Symptoms worse with ambulance ride into the department. Denies any complications with up-to-date. Patient on medications for anxiety. Last meal was 3 hours prior to arrival, states ate a hot dog prior to the baseball game. Physical Examination: General: Alert and oriented 3, no acute distress HEENT: Normocephalic, atraumatic. Moist mucosa membranes Neck: supple, nontender. Cardiovascular: Regular rate and rhythm, no murmurs Respiratory: Normal breath sounds, symmetric, no distress Abdomen: Soft, gravid abdomen, right lower quadrant tenderness, negative Rovsing's. Negative rebound. Extremities: Nontender, no edema, pulses intact 4 Neuro: no focal neurological deficits. Test Results: WBC 13.4. Hemoglobin 13. Creatinine 0.56. UA [address] scan abdomen pelvis notes normal appendix, ileus noted with small intestines. Emergency Department Course and Treatment: Bedside ultrasound intrauterine heart tones 130s. Patient 16 weeks gestation presents with right lower quadrant tenderness. Labs were obtained noted white count 13.4. I spoke with covering surgeon Dr. Johnson at 7981, requested definitive scan and call back. CT oral contrast can obtained. Patient treated with morphine initial Zofran, Phenergan was added. Results of CT scan notes ileus with currently a normal appendix. She still has right lower quadrant pain and nausea symptoms. We discussed with Dr. Johnson, discussed with persistent symptoms, states he would like me to talk to medicine in OB for admission. Medicine does not feels a medical issue at this time. Spoke with Dr. Yarelis Ko covering for Dr. Maria, agrees with admitting to her service however she would like surgery to evaluate in the ED. I rediscussed with surgery who will evaluate in the ED. Treatment Plan: [] Disposition: Admission Impression: 1. Right lower quadrant pain 2. Ileus 3. 16 weeks 4. Nausea and vomiting. This note was generated with [employer] software. It may contain incorrect words, spelling, and punctuation that were not noted in review of the chart prior to signing ED Disposition - Plan for ED Patient: Disposition: Acute Care Hospital [facility] Chief Complaint: Nausea/Vomiting Diagnosis: Right lower quadrant abdominal pain, Ileus, 16 weeks gestation of , Nausea and vomiting Referrals: Ashlie El, HEMA [Primary Care Provider] - What to do if you have Problems For any increased pain, shortness of breath, bleeding, nausea or vomiting, chest pain, or any unexpected problems, contact your Primary Care Provider. Call [facility] ([phone]) or report to the closest Emergency Room. Call 911 if necessary. 03/16/18 0324 <Electronically signed by Tristan Salas> Date Tristan Salas Cosigner Signature (If Indicated): Date CC: HEMA El URINALYSIS, COMPLETE Collected: 03/16/2018 Status: F Source: [place] 1:47 AM [facility] REPOSITORY Order Comment: Order Date: 03/15/18 Has pt arrived? Y How was Urine Obtained? CLEAN CATCH TYPE CODE TESTS RESULT OUT OF RANGE REFERENCE UNITS LAB L400.3000 Yellow COLOR Normal Yellow LAB L400.3050 Clear Normal CLARITY Clear LAB L400.3200 Normal mg/dl Normal GLUCOSE, UR Normal LAB L400.3300 Negative mg/dL Normal BILIRUBIN URINE Negative LAB L400.3400 Negative mg/dl High KETONE UR 150 Result Comment: CRITICAL VALUE VERIFIED. CALLED TO DARBY IN ED 03/16/18 0200 Ana Starr. RESULTS READ BACK BY SAME . CRITICAL VALUE *H LAB L400.3465 1.002-1.030 Normal SP.GR. DIPSTX 1.020 LAB L400.3550 5.0 - 8.0 pH Normal UR 6.0 LAB L400.3600 Negative mg/dl High 15 PROT DIPSTX LAB L400.3700 Normal mg/dl Normal UROBILI Normal LAB L400.3750 Negative Normal NITRITE UR Negative LAB L400.3780 Negative /ul Normal OCCULT Negative BLOOD-UR LAB L400.3800 Negative /ul High 25 LEUK ESTERASE LAB L400.4050 0-5 /hpf Normal WBC 0-5 SEEN LAB L400.4100 0-5 /hpf 0 Normal RBC-UA SEEN LAB L400.4150 5-10 /hpf Normal SQUAM EPI 0-5 SEEN LAB L400.4300 None Seen /hpf 0 Normal BACTERIA SEEN LAB L400.4350 <or=2+ /hpf Normal MUCUS, URINE RARE Performed By: #### L400.0001 #### [facility] [address] [facility] [place], [address] ABDOMEN/PELVIS WITH Observed: 03/15/2018 Status: F Source: [place] CONTRAST 11:27 PM [facility] REPOSITORY [facility] Imaging Services [address] [place] [address] Abdomen/Pelvis WITH Contrast MR#: [id number] Acct: [id number] Name: ANTONETTE HENDERSON Jayant Rep #: [id number] : 1995 F 23 From: Bernice West MD PCP: HEMA Lopez Status: REG ER Study: Abdomen/Pelvis WITH Contrast Date of Exam: 03/16/18 Exam# [id number] Ordering Dr: Tristan Gant DO STUDY: CT ABDOMEN AND PELVIS WITH CONTRAST REASON FOR EXAM: Female, 23 years old. RLQ PAIN AND VOMITING TONIGHT,16 WEEKS HX:CELIAC DISEASE,CHOLECYSTECTOMY RADIATION DOSAGE (If Supplied By Facility): CTDIvol = ( 7.91 ) mGy, DLP = ( 424.69 ) mGycm TECHNIQUE: Transaxial images were obtained from the dome of the diaphragm to the symphysis pubis without oral contrast. 100ML ml of Isovue 300 contrast was administered. Sagittal and coronal images were reconstructed. Individualized dose optimization techniques were used for this CT. COMPARISON: None. FINDINGS: The visualized lung bases are unremarkable. The visualized portions of the heart are within normal limits. Normal liver. There are surgical clips in the gallbladder fossa consistent with a prior cholecystectomy. Normal spleen. Normal pancreas. Normal bilateral adrenal glands. Normal right kidney. Normal left kidney. Normal visualized stomach. There is a paralytic ileus of the small intestine with mild diffuse distention. Normal colon. The appendix is visualized and appears normal. Normal abdominal aorta. Normal inferior vena cava. Normal retroperitoneum. Normal urinary bladder. There is a single intrauterine gestation. The placenta is fundal. Normal abdominal wall. Normal osseous structures. CT/Abdomen/Pelvis WITH Contrast IMPRESSION: There is a paralytic ileus of the small intestine with mild diffuse distention. Electronically Signed: Bernice West MD at 2:52 EDT Tel , Service support , CC: HEMA El; Tristan Gant Trail Maintenance Worker: Signed CBC W/DIFF, AUTOMATED Collected: 03/15/2018 Status: F Source: [place] 10:56 PM [facility] REPOSIT[facility] TYPE CODE TESTS RESULT OUT OF RANGE REFERENCE UNITS LAB L100.1000 4.4-11.0 K/mm3 High WBC 13.4 LAB L100.1200 4.2-5.4 M/mm3 Normal RBC 4.38 LAB L100.1300 12.0-15.0 g/dl Normal HGB 13.9 LAB L100.1400 37-47 % Normal HCT 40.9 LAB L100.1500 81-99 fL Normal MCV 93.4 LAB L100.1600 27.0-32.0 pg Normal MCH 31.7 LAB L100.1700 32-36 g/gl Normal MCHC 34.0 LAB L100.1810 11.6-14.6 % Normal RDW CV 12.9 LAB L100.1820 35.1-43.9 fl High RDW SD 44.1 LAB L100.1900 150-450 K/mm3 Normal PLT 287 LAB L100.2000 6.2-12.0 fl Normal MPV 10.7 LAB L100.2100 47-70 % High NEUT% 83.4 LAB L100.2200 19-41 % Low LY% 12.9 LAB L100.2300 0-10 % Normal MONO% 3.4 LAB L100.2400 0-5 % Normal EO% 0.1 LAB L100.2500 0-1 % Normal BASO% 0.1 LAB L100.2550 0.0-0.9 % Normal IM GRAN % 0.100 Result Comment: IG% - Immature Granulocytes (promyelocytes, myelocytes and metamyelocytes) > 1% indicates that a LEFT SHIFT is Present. LAB L100.2620 2.0-7.7 X10 3/uL High Absolute Neut 11.1 LAB L100.2720 0.83-4.51 X10 3/ul Normal Absolute Lymph 1.72 Performed By: #### L100.0100 #### [facility] [address] [facility] [place], [address] PROTHROMBIN TIME W/INR Collected: 03/15/2018 Status: F Source: [place] 10:56 PM [facility] REPOSITORY TYPE CODE TESTS RESULT OUT OF RANGE REFERENCE UNITS LAB L300.4150 11.7-14.9 SECONDS Normal PROTIME 12.7 LAB L300.4200 Normal INR 1.0 Performed By: #### L300.3900, L300.4310 #### [facility] [address] [facility] [address] [facility] [address] PARTIAL THROMBOPLAST Collected: 03/15/2018 Status: F Source: [place] TIME 10:56 PM [facility] REPOSIT[facility] TYPE CODE TESTS RESULT OUT OF RANGE REFERENCE UNITS LAB L300.4310 24.1-36.2 Seconds Normal PTT 27.3 Performed By: #### L300.3900, L300.4310 #### [facility] [address] [place], [address] BASIC METABOLIC Collected: 03/15/2018 Status: F Source: [place] PROFILE (BMP) 10:56 PM [facility] REPOSITORY TYPE CODE TESTS RESULT OUT OF RANGE REFERENCE UNITS LAB L501.0100 74-106 mg/dL Normal GLU 84 Result Comment: Please note revised GLUCOSE reference range effective 2017. LAB L501.1000 7-18 mg/dL Normal BUN 10 LAB L501.1100 0.55-1.02 mg/dL Normal CREAT,SERUM 0.56 Result Comment: The validity of the calculated GFR AND GFRAA in patients over 70 years has not been determined. Clinical correlation is essential. LAB L501.1110 >60 mL/min Normal EST GFR 143 Result Comment: Non- GFR Calc LAB L501.1115 >60 mL/min Normal EST GFR - AA 173 Result Comment: GFR Calc LAB L501.1255 ml/min Normal Estimated CRCL 136.07 LAB L501.1300 10-20 RATIO BUN/CRE Normal 17.8 LAB L501.2200 8.5-10 mg/dL .1 CA Normal 9.0 LAB L501.5300 136-14 mmol/L 5 NA Normal 136 LAB L501.5600 3.5-5. mmol/L 1 K Normal 3.6 LAB L501.5900 98-107 mmol/L CL Normal 104 LAB L501.6100 21.0-3 mmol/L Low 2.0 CO2 20.0 LAB L501.6200 5-15 GAP Normal 12 Performed By: #### L500.2500 #### [facility] [address] [place], [address] URINE DRUG SCREEN Collected: 01/29/2018 Status: F Source: [place] (ISHAN) 11:58 AM [facility] REPOSITORY Order Comment: List of Drugs Taken or Suspected? UNK TYPE CODE TESTS RESULT OUT OF RANGE REFERENCE UNITS LAB L505.0075 TO BE Normal CONFIRMED Result Comment: CONFIRMATORY TESTING FOR ALL POSITIVE URINE DRUG SCREEN RESULTS WILL ONLY BE SENT OUT UPON PHYSICIAN ORDER. [employer]ate[employer]ProtectTA Urine Drug Screen methods provide only preliminary analytical test results. A more specific alternate chemical method must be used in order to obtain a confirmed analytical result. Gas chromatography/mass spectrometery (GC/MS) is the preferred confirmatory method. Clinical consideration and professional judgement should be applied to any drug of abuse test result, particularly when preliminary positive results are used. URINE TCA TESTING MUST BE ORDERED SEPARATELY. USE TEST MNEMONIC: [facility] LAB L505.5005 VISTA UDS PH 6 Normal LAB L505.5015 <1000 ng/mL AMPHETAMINES Normal NEGATIVE LAB L505.5025 < 200 ng/mL BARBITIURATES Normal NEGATIVE LAB L505.5035 < 200 ng/mL BENZODIAZIPINE Normal NEGATIVE LAB L505.5045 < 300 ng/mL COCAINE Normal NEGATIVE LAB L505.5055 < 500 High ng/mL ECSTACY POSITIVE LAB L505.5065 < 300 ng/mL METHADONE Normal NEGATIVE LAB L505.5075 < 300 ng/mL OPIATES Normal NEGATIVE LAB L505.5085 < 25 ng/mL PCP Normal NEGATIVE LAB L505.5095 < 50 ng/mL THC Normal NEGATIVE Performed By: #### L505.4999 #### [facility] [address] [place], [address] URINALYSIS, ROUTINE Collected: 01/29/2018 Status: F Source: [place] (DIPSTICK) 11:58 AM [facility] REPOSITORY Order Comment: How was Urine Obtained? CLEAN CATCH TYPE CODE TESTS RESULT OUT OF RANGE REFERENCE UNITS LAB L400.3000 Yellow COLOR Normal Yellow LAB L400.3050 Clear Normal CLARITY Sl. Cloudy LAB L400.3200 Normal mg/dl Normal GLUCOSE, UR Normal LAB L400.3300 Negative mg/dL Normal BILIRUBIN URINE Negative LAB L400.3400 Negative mg/dl Normal KETONE UR Negative LAB L400.3465 1.002-1.030 Normal SP.GR. DIPSTX 1.025 LAB L400.3550 5.0 - 8.0 pH UR Normal 6.0 LAB L400.3600 Negative mg/dl High PROT 15 DIPSTX LAB L400.3700 Normal mg/dl Normal UROBILI Normal LAB L400.3750 Negative Normal NITRITE UR Negative LAB L400.3780 Negative /ul High 10 OCCULT BLOOD-UR LAB L400.3800 Negative /ul High LEUK ESTERASE 100 Performed By: #### L400.2010 #### [facility] [address] [place], [place], [address] CBC W/DIFF, AUTOMATED Collected: 01/29/2018 Status: F Source: [place] 11:58 AM [facility] REPOSITORY TYPE CODE TESTS RESULT OUT OF RANGE REFERENCE UNITS LAB L100.1000 4.4-11.0 K/mm3 Normal WBC 9.4 LAB L100.1200 4.2-5.4 M/mm3 Normal RBC 4.27 LAB L100.1300 12.0-15.0 g/dl Normal HGB 13.6 LAB L100.1400 37-47 % Normal HCT 40.8 LAB L100.1500 81-99 fL Normal MCV 95.6 LAB L100.1600 27.0-32.0 pg Normal MCH 31.9 LAB L100.1700 32-36 g/gl Normal MCHC 33.3 LAB L100.1810 11.6-14.6 % Normal RDW CV 13.0 LAB L100.1820 35.1-43.9 fl High RDW SD 44.2 LAB L100.1900 150-450 K/mm3 Normal PLT 281 LAB L100.2000 6.2-12.0 fl Normal MPV 11.6 LAB L100.2100 47-70 % Normal NEUT% 65.5 LAB L100.2200 19-41 % Normal LY% 22.4 LAB L100.2300 0-10 % Normal MONO% 9.9 LAB L100.2400 0-5 % Normal EO% 1.4 LAB L100.2500 0-1 % Normal BASO% 0.6 LAB L100.2550 0.0-0.9 % Normal IM GRAN % 0.200 Result Comment: IG% - Immature Granulocytes (promyelocytes, myelocytes and metamyelocytes) > 1% indicates that a LEFT SHIFT is Present. LAB L100.2620 2.0-7.7 X10 3/uL Normal Absolute Neut 6.2 LAB L100.2720 0.83-4.51 X10 3/ul Normal Absolute Lymph 2.11 Performed By: #### L100.0100 #### [facility] [address] [facility]. [place], [place], [address] THYROID STIM HORMONE Collected: 01/29/2018 Status: F Source: [place] (TSH) 11:58 AM [facility] REPOSITORY Order Comment: PLEASE ADD TO BLOOD IN LAB. RACK:TG3 6 B. TYPE CODE TESTS RESULT OUT OF RANGE REFERENCE UNITS LAB L501.9520 0.358-3.74 uIU/mL Normal TSH 2.74 Performed By: #### L501.9520, L501.00019, L506.0400 #### [facility] [address] [facility] [address] [place], [address] FREE T3 Collected: 01/29/2018 Status: F Source: [place] 11:58 AM [facility] REPOSITORY Order Comment: PLEASE ADD TO BLOOD IN LAB. RACK:TG3 6 B. TYPE CODE TESTS RESULT OUT OF RANGE REFERENCE UNITS LAB L501.02476 2.18-3.98 pg/mL Normal FREE T3 2.6 Performed By: #### L501.9520, L501.77283, L506.0400 #### [facility] [address] [place], [address] T4 FREE DIRECT Collected: 01/29/2018 Status: F Source: [place] 11:58 AM [facility] REPOSITORY Order Comment: PLEASE ADD TO BLOOD IN LAB. RACK:TG3 6 B. TYPE CODE TESTS RESULT OUT OF RANGE REFERENCE UNITS LAB L506.0400 0.76-1.46 ng/dL Normal T4 FREE 0.86 DIRECT Performed By: #### L501.9520, L501.82985, L506.0400 #### [facility] [address] [place], [place], [address] T AND S-NO Collected: 01/29/2018 Status: F Source: [place] CHARGE W/PNP 11:58 AM [facility] REPOSITORY Order Comment: Reason for Type AND Screen/Red Cells: Surgery? N TYPE CODE TESTS RESULT OUT OF RANGE REFERENCE UNITS LAB B10.0800 O Normal BLOOD POSITIVE TYPE GEL LAB B100.4050 Normal Ab SCREEN NEGATIVE GEL Performed By: #### B100.7550 #### [facility] [place], [place], [address] RUBELLA IGG Collected: 01/29/2018 Status: F Source: [place] 11:58 AM [facility] REPOSITORY TYPE CODE TESTS RESULT OUT OF RANGE REFERENCE UNITS LAB L509.4000 IU/mL Normal Rubella IgG 103.7 Result Comment: Antibody results Interpretation of Immune Status < 5 IU/ml Presumed Non-immune 5 - < 10 IU/ml Equivocal > or = 10 IU/ml Presumed Immune Performed By: #### L509.4000, L3890.6005 #### [facility] [address] [place], [place], [address] HIV - WCH Collected: 01/29/2018 Status: F Source: [place] 11:58 AM [facility] REPOSITORY TYPE CODE TESTS RESULT OUT OF RANGE REFERENCE UNITS LAB L3890.6005 Nonreactive Normal HIV - W[facility] Non-Reactive Performed By: #### L509.4000, L3890.6005 #### [facility] [address] [place], [place], [address] HEPATITIS B SURFACE Collected: 01/29/2018 Status: F Source: [place] AG 11:58 AM [facility] REPOSITORY TYPE CODE TESTS RESULT OUT OF RANGE REFERENCE UNITS LAB L3100.0400 Negative Normal HB Negative SURF AG Result Comment: Performed at: [facility] [id number] Transformer Molder: García Hagen PhD, Phone: [phone] Performed By: #### L3100.0390, L3100.0625 #### [facility] (refer to report for specific site) refer to report for address and phone number HEPATITIS C ANTIBODIES Collected: 01/29/2018 Status: F Source: [place] 11:58 AM [facility] REPOSITORY TYPE CODE TESTS RESULT OUT OF RANGE REFERENCE UNITS LAB L3100.0650 0.0-0.9 s/co ratio Normal HEP C AB 0.3 Result Comment: Negative: < 0.8 Indeterminate: 0.8 - 0.9 Positive: > 0.9 The CDC recommends that a positive HCV antibody result be followed up with a HCV Nucleic Acid Amplification test ([id number]). Performed By: #### L3100.0390, L3100.0625 #### [facility] (refer to report for specific site) refer to report for address and phone number RPR Collected: 01/29/2018 Status: F Source: [place] 11:58 AM [facility] REPOSITORY TYPE CODE TESTS RESULT OUT OF REFERENCE UNITS RANGE LAB L700.5100 NONREACTIVE Normal RPR NONREACTIVE Performed By: #### L700.5100 #### [facility] [address] [place], [place], [address] CT/NG WCH BY PCR Collected: 01/01/2018 Status: F Source: [place] 1:30 PM [facility] REPOSITORY Order Comment: CYTOLOGY INFORMATION: - CLINICAL INFORMATION: - DATE LMP/MENOPAUSE: - COLLECTION VIAL: Thin Prep Vial - INSURANCE VERIFIER SOURCE: CERVICAL/ENDOCERVICAL - COLLECTION TECHNIQUE: BRUSH/SPATULA TYPE CODE TESTS RESULT OUT OF RANGE REFERENCE UNITS LAB L8200.2100 Negative Normal Chlam Negative Trac PCR LAB L8200.2200 Negative Normal NG by Negative PCR Performed By: #### L8200.2000 #### [facility] [address] [place], [address] PAP I-G W/RFX HRHPV Collected: 01/01/2018 Status: F Source: [place] 1:30 PM [facility] REPOSITORY Order Comment: CYTOLOGY INFORMATION: - CLINICAL INFORMATION: - DATE LMP/MENOPAUSE: - COLLECTION VIAL: Thin Prep Vial - INSURANCE VERIFIER SOURCE: CERVICAL/ENDOCERVICAL - COLLECTION TECHNIQUE: BRUSH/SPATULA Specimen Comment: [id number] Specimen Comment: No. of containers..01 ThinPrep Vial TYPE CODE TESTS RESULT OUT OF REFERENCE UNITS RANGE LAB L7400.0800 . High DIAGN Comment Result Comment: EPITHELIAL CELL ABNORMALITY. LOW-GRADE SQUAMOUS INTRAEPITHELIAL LESION (LGSIL); MILD DYSPLASIA IS PRESENT. LAB L7400.0900 . Normal ADEQ Comment Result Comment: Satisfactory for evaluation. Endocervical and/or squamous metaplastic cells (endocervical component) are present. LAB L7400.1300 . High RECOMM Comment Result Comment: Suggest follow up as clinically appropriate. LAB L7400.1400 . Normal PERFORM Comment Result Comment: Virginie Arreola, Home Advisor (ASCP) LAB L7400.1700 . Normal SIGN Comment Result Comment: Cecy Cuevas MD, Pathologist LAB L7400.1720 . Normal Path prov. Comment ICD9 Result Comment: R87.612 LAB L7400.2575 . Normal TEST METHOD Comment Result Comment: This liquid based ThinPrep(R) pap test was screened with the use of an image guided system. LAB L7400.2600 . Normal . COMM LAB L7400.2700 . Normal PAPSMR Comment Result Comment: The Pap smear is a screening test designed to aid in the detection of premalignant and malignant conditions of the uterine cervix. It is not a diagnostic procedure and should not be used as the sole means of detecting cervical cancer. Both false-positive and false-negative reports do occur. LAB L7400.2800 . Normal HPV RFLX Comment Result Comment: The HPV DNA reflex criteria were not met with this specimen result therefore, no HPV testing was performed. Performed at: - [facility], [place] [id number] Transformer Molder: Cecy Cuevas MD, Phone: [phone] Performed By: #### L7400.0350 #### [facility] (refer to report for specific site) refer to report for address and phone number U BHCG QLT Collected: 10/22/2017 Status: F Source: [place] 11:00 PM [facility] REPOSITORY TYPE CODE TESTS RESULT OUT OF RANGE REFERENCE UNITS LAB 3998732(CLIFF Neg NC) Normal U beta Neg hCG Ql Performed By: #### [id number] #### [facility] [place] [address] CBC W/ AUTO DIFF Collected: 10/22/2017 Status: F Source: [place] 10:44 PM [facility] REPOSITORY TYPE CODE TESTS RESULT OUT OF RANGE REFERENCE UNITS LAB 80297946(L 3.6-11.0 E3/mcL OINC) Normal WBC 10.9 LAB 21600986(L 3.90-5.40 E6/mcL OINC) Normal RBC 4.60 LAB 74253239(L 12.0-16.0 G/DL OINC) Normal Hgb 14.9 LAB 79238073(L 36.0-48.0 % OINC) Normal Hct 43.8 LAB 98281409(L 11.5-14.5 % OINC) Normal RDW 13.3 LAB 99172372(L 27.0-31.0 pg OINC) High MCH 32.3 LAB 54617348(L 33.0-37.0 G/DL OINC) Normal MCHC 33.9 LAB 61330517(L 78.0-100.0 fL OINC) Normal MCV 95.3 LAB 16088039(L 7.4-11.0 fL OINC) Normal MPV 9.2 LAB 29473998(L 130-400 E3/mcL OINC) Normal Platelet 360 Performed By: #### [id number] #### MERRYArjun SuárezTroyvinod [facility] [id number] AUTO DIFF Collected: 10/22/2017 Status: F Source: [place] 10:44 PM [facility] REPOSITORY Order Comment: Order Added by Discern Expert. TYPE CODE TESTS RESULT OUT OF RANGE REFERENCE UNITS LAB 21918171(L 37.0-75.0 % OINC) Normal Neutro Auto 69.9 LAB 70679926(L 20.0-55.0 % OINC) Low Lymph Auto 19.6 LAB 77014434(L 0.0-10.0 % OINC) Normal [place] Auto 8.7 LAB 28261276(L 0.0-11.0 % OINC) Normal Eos Auto 0.8 LAB 73912564(L 0.0-2.0 % OINC) Normal Basophil Auto 1.0 LAB 73779892(L 1.4-6.5 E3/mcL OINC) High Neutro 7.6 Absolute LAB 65135786(L 1.2-3.4 E3/mcL OINC) Normal Lymph Absolute 2.1 LAB 20390966(L 0.0-0.7 E3/mcL OINC) High [place] Absolute 0.9 LAB 56338000(L 0.0-0.7 E3/mcL OINC) Normal Eos Absolute 0.1 LAB 31915641(L 0.0-0.2 E3/mcL OINC) Normal Basophil 0.1 Absolute Performed By: #### [id number] #### MERRYArjun SuárezHemvinod [facility] [place] [id number] BMP Collected: 10/22/2017 Status: F Source: [place] 10:44 PM [facility] REPOSITORY TYPE CODE TESTS RESULT OUT OF RANGE REFERENCE UNITS LAB 53254127(L 70-99 mg/dL OINC) Glucose Normal Lvl 88 LAB 80090066(L 8.4-10.2 mg/dL OINC) Calcium Normal Lvl 9.6 LAB 46231576(L 136-145 mEq/L OINC) Sodium Normal Lvl 137 LAB 35934718(L 3.5-5.1 mEq/L OINC) Normal Potassium Lvl 4.1 LAB 02146656(L 98-107 mEq/L OINC) Chloride Normal 104 LAB 19562166(L 24.0-30.0 mEq/L OINC) CO2 Normal 24.4 LAB 37142393(L 7-18 mg/dL OINC) BUN Normal 11 LAB 6928656(LO 0.6-1.3 mg/dL INC) Normal Creatinine 0.7 LAB 87561690(L 5.4-30.0 ratio OINC) Normal BUN/Creat Ratio 15.7 Performed By: #### [id number] #### [facility] [employer] [facility] [place] [address] EGFR Collected: 10/22/2017 Status: F Source: [place] 10:44 PM [facility] REPOSITORY Order Comment: Order added by Discern Expert. TYPE CODE TESTS RESULT OUT OF RANGE REFERENCE UNITS LAB 45873528(LO mL/min/1.73 INC) m2 Normal eGFR >60 LAB 72748009(LO mL/min/1.73 INC) m2 Normal eGFR AA >60 Performed By: #### [id number] #### [facility] [employer] [address] [place] [address] ETHANOL Collected: 10/22/2017 Status: F Source: [place] 10:44 [facility] REPOSITORY TYPE CODE TESTS RESULT OUT OF RANGE REFERENCE UNITS LAB 87673803(LO 0-15 mg/dL INC) Normal Ethanol Lvl <5 Result Comment: SAMPLES WITH CONCENTRATIONS <15 MG/DL SHOULD BE INTERPRETED NEGATIVE. FOR MEDICAL USE ONLY Performed By: #### [id number] #### M[facility] [employer] [address] [place] [address] ACETAMNPHN LVL Collected: 10/22/2017 Status: F Source: [place] 10:44 PM [facility] REPOSITORY TYPE CODE TESTS RESULT OUT OF RANGE REFERENCE UNITS LAB 59675679(L 0-15 microgram/ OINC) mL Acetaminoph Normal Lvl <10 Result Comment: Tylenol - Therapeutic 10-30 ug/ml Toxic 4 hr. Post ingestion >150 ug/ml Toxic 8hr Post ingestion >75 ug/ml Toxic 12hr. Post ingestion >40 ug/ml Performed By: #### [id number] #### M[facility] [employer] [facility] [place] [address] SALICYLATE Collected: 10/22/2017 Status: F Source: [place] 10:44 PM [facility] REPOSITORY TYPE CODE TESTS RESULT OUT OF REFERENCE UNITS RANGE LAB 47035308(L 15-30 mg/dL OINC) Low Salicylate Lvl <4 Performed By: #### [id number] #### MERR[facility] [address] [place] [address] U DRUG SCREEN Collected: 10/22/2017 Status: F Source: [place] 10:10 PM [facility] REPOSITORY TYPE CODE TESTS RESULT OUT OF RANGE REFERENCE UNITS LAB 65292791(LO ng/mL INC) Normal U Negative Amph Scr Result Comment: Results for medical use only. Confirmation of positive results will be done when requested. Specimens are kept for one week. LAB 71102590(LOINC) ng/mL U Normal Ce Scr Negative LAB 09901274(LOINC) ng/mL U Normal Benzodia Scr Negative LAB 71679448(LOINC) ng/mL U Normal Cannab Scr Negative LAB 00876295(LOINC) ng/mL U Normal Cocaine Scr Negative LAB 58612220(LOINC) ng/mL U Normal Opiate Scr Negative LAB 11449929(LOINC) ng/mL U Normal PCP Scr Negative Performed By: #### [id number] #### [facility] [employer] [facility] [place] [address] OCCUPATIONAL HEALTH PT Observed: 09/17/2017 Status: F Source: Audience REPORT 12:43 PM SYSTEM REPOSITORY Type: Outpatient Dictated by: To Be Signed by: Transcribed by: Transcribed Date/Time: 09/06/2017 13:29 Dictation Date/Time: 09/05/2017 09:38 Report: PHYSICAL THERAPY DISCHARGE DATE: RE: Antonette Henderson [facility] CLAIM #[id number] DATE OF INJURY: 06/25/17 DIAGNOSES: 1) ICD-10 Code S00.83XA 2) ICD-10 Code F07.81 3) ICD-10 Code S80.00XA REFERRING PROVIDER: Edwardo Shah D.O. EMPLOYER: [employer] Foot and Ankle : 89 Miss Henderson was seen for two sessions of physical therapy. She was initially evaluated on 08/14/17. There was an extensive amount of time between the onset of her injury and the initial evaluation that she explains that she was not aware that her C9 had been approved. She had a follow- up visit on 08/17/17. At that time, she identified having nominal changes of symptoms. She was encouraged on 08/18/17 visit to perform active stretching of her cervical spine. She was instructed with the use of resistance bands for her home activities. It was anticipated that we would continue with training of ergonomic principles and improving her overall postural control but she has not kept any scheduled appointments following that date. Efforts to contact her have been unsuccessful. She is being formally discharged from her care at this time. If additional physical therapy is needed, we will be happy to resume care. I thank you very much for the opportunity to participate with her rehabilitation. No formal reevaluation was completed. OCCUPATIONAL HEALTH PT Observed: 08/16/2017 Status: F Source: Audience REPORT 9:53 AM SYSTEM REPOSITORY Type: Outpatient Dictated by: To Be Signed by: Transcribed by: Transcribed Date/Time: 08/15/2017 11:52 Dictation Date/Time: 08/15/2017 07:50 Report: PHYSICAL THERAPY INITIAL EVALUATION DATE: 08/14/17 RE: Antonette Henderson CLAIM #[id number] DATE OF INJURY: 06/25/17 DIAGNOSES: 1) ICD-10 Code S00.83XA, contusion of the head 2) ICD-10 Code F07.81, post-concussion syndrome 3) ICD-10 Code S80.00XA, contusion of the knee REFERRING PROVIDER: Edwardo Shah D.O. EMPLOYER: [employer] Foot and Ankle : 89 Miss Henderson shares that she was in her normal state of health on the above date of injury. 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 She was exiting the building on the above date of injury when she slipped on ice and fell. She reports that she attempted to catch herself with her hands. She fell awkwardly and struck her head stating that she was knocked out. She reports that she was carried back into the building by her coworkers. She received medical interventions at that time and was referred to [facility]. She had a CT scan of her neck and of her head. Those tests were negative for acute injuries. She reports that she continues to have left-sided neck discomfort. The pain also extends into her left shoulder. She reports that she has episodic headaches but states at this time her primary dysfunction is through her left shoulder. She shares that she continues to work in her normal job but states that she is working in a different area of her facility due to internal changes at her workplace. She reports that she has a constant pull through the left side of her neck. She does have these symptoms occasionally on the right. She reports having increased discomfort with increased movement. She is unable to identify any activity which is helpful for reducing the symptoms other than reduced movement. She shares that she has a history of temporomandibular joint dysfunction. She reports that she must perform a maneuver approximately ten times a day to unlock her right TMJ. She states that she has no symptoms with this activity. Her goal of participating with physical therapy is to reduce the symptoms and return to her normal activities. She shares that she has exercised in the past and gives herself a B grade for her level of fitness. She shares, however, that she performs no consistent exercise at this time. Miss Henderson was seen in our [place] [facility]. She ambulated into the clinic with a fluid gait pattern. Her standing posture was grossly erect. She had the tendency to assume a kyphotic alignment frequently in sitting. She demonstrated full range of motion of the cervical spine into all planes. She voiced having mild discomfort on the left side of her neck at end range of right rotation. Her shoulder range of motion was full into all planes bilaterally. She voiced having mild discomfort through the left side at end range of flexion, scaption, and internal and external rotation. Strength testing through bilateral shoulders grade 4/5 with isolated left shoulder external rotation and 5/5 internal rotation. She reported symptoms with external rotation. Elbow flexion graded 4/5 on the left side and 4+/5 with elbow extension. She reported again having increased symptoms with elbow flexion. The right side graded 5/5 when was asymptomatic. The client had a negative impingement sign. There was a positive sulcus sign. The client voiced immediately that she was very apprehensive with that test. There was a positive apprehension sign and also relocation sign. Her range of motion was full at end range of external rotation but she was very hesitant with this position. She had normal myotomal strength through bilateral upper extremities. TRIAL TREATMENT: Client was instructed with several exercises to promote left shoulder stabilization and motor control. She was educated on diaphragmatic breathing as she demonstrated accessory breathing patterns consistently. She also was educated on several strategies to protect her left upper extremity with activities. SUMMARY: Miss Henderson participated well with today's evaluation. I feel that she may have slight hypermobility through the left shoulder and has residual symptoms from her fall with focused efforts to protect her left shoulder through muscle recruitment through the left upper quarter. GOALS: 1) Client to report 50 to 75% reduction of symptoms through the left upper quarter. 2) Client to increase strength of the left shoulder to 5/5 into all movement planes focusing on external rotation and elbow extension to promote glenohumeral joint stability. 3) Further assessment of client's scapular motor control will be assessed. 4) Client to be independent with appropriate ergonomic strategies at work. Miss Henderson and I had a brief discussion regarding her computer set-up. 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 She was encouraged not to perform that work task but she stated that recently she has not been doing that given change of her job role. This will be further explored as we discuss the possible onsite visit also. I thank you very much for the opportunity to participate with her care. Please feel free to contact me if I can be of further assistance. Copies to Physician(s): MRI KNEE RIGHT Observed: 07/11/2017 Status: F Source: Aud[place] WITHOUT CONTRAST 2:51 PM [place] ([place]) REPOSITORY CLINICAL HISTORY: Slipped on ice leaving work on 06/25/2017. Right knee injury. Right knee pain, medially. Prior right knee surgery. MRI RIGHT KNEE WITHOUT CONTRAST: TECHNIQUE: Axial STIR, coronal PD fat-saturated, sagittal PD fat-saturated, sagittal T1, and T2 images were obtained through the right knee. FINDINGS: Medial compartment: The medial meniscus and medial compartment cartilage are intact. Lateral compartment: The lateral meniscus and lateral compartment cartilage are intact. Intercondylar notch: The cruciate ligaments are intact. Collateral ligaments: Intact. Patellofemoral compartment: A 5 mm x 3 mm focus of high-grade articular cartilage loss/chondral defect is noted in the inferior aspect of the lateral patellar facet (sagittal PD fat-sat images 17 and 18). The patellar and trochlear cartilage are otherwise intact. There is a 1.6 cm defect in the lateral patellofemoral ligament/lateral patellar retinaculum, suggestive of prior lateral release procedure. Mild postoperative scarring is noted in Hoffa's fat pad. Extensor mechanism: The patellar and distal quadriceps tendons are intact. The trace knee joint effusion is present. The bone marrow is normal in signal, without bone marrow edema or signs of acute fracture. IMPRESSION: 1. A 5 mm focus of high-grade articular cartilage loss/chondral defect in the inferior aspect of the lateral patellar facet. No bone marrow edema or signs of acute fracture. 2. Trace knee joint effusion, without visualized intra-articular loose body. 3. Prior lateral release procedure. 4. Otherwise normal right knee MRI. ALLERGIES ALLERGIES DATE TYPE / CODE NAME / CODE REACTION SEVERITY SOURCE 05/31/2018 Drug latex/[id number] Rash Unknown [facility] Allergy/416 (RXNORM) Hospital 305969(SNOM Repository ED CT) 09/18/2012 DRUG LATEX RASH [facility] INGREDI/419 Main [place] 546418(SNOM Repository ED CT) Drug/425718 No Known [facility] 003(SNOMED [facility] Repository Drug/648078 Latex Mormonism 003(SNOMED [facility]) [facility] Repository ENCOUNTERS ENCOUNTERS ADMIT/DISCHARGE ACCOUNT NUMBER ADMITTING ENCOUNTER LOCATION SOURCE CLASS 07/04/2018/ [id number] Ambulatory [place] 019 [facility] Main [place] Repository 07/04/2018/ [id number] Ambulatory [place] 019 [facility] [place] Repository 06/25/2018/ [id number] Ambulatory [place] 019 [facility] [place] Repository 06/19/2018/ [id number] Ashlie El Ambulatory [place] [facility] 019 [facility] ding:[facility] System racRoom: Repository Room 3 06/03/2018/ [id number] Ambulatory [place] 018 [facility] [place] Repository 06/03/2018/ [id number] Ambulatory [place] 018 [facility] [place] Repository 05/30/2018/ [id number] [place] 018 [facility] om: WP012 05/28/2018/ [id number] Ambulatory [place] 018 [facility] [place] Repository 05/15/2018/ [id number] Ambulatory [place] 018 [facility] [place] Repository 05/14/2018 [id number] Ambulatory [address] [place] [address] Repository 05/14/2018 [id number] Ambulatory [address] [place] [address] Repository 05/14/2018 [id number] Ambulatory 9509 [facility] Repository 04/11/2018/ [id number] Ambulatory [place] 018 [facility] Repository 04/11/2018/ [id number] Ambulatory [address] Repository 04/02/2018/ [id number] Ambulatory [address] Repository 03/28/2018/ [id number] Ambulatory [address] Repository 03/18/2018/ [id number] Ambulatory [address] ding:[employer] [facility] rac Repository 03/16/2018/ [id number] Toña, Inpatient [place] 018 [facility] ding:IN2Bgzy Repository : AD136Kjf: 1 03/16/2018 [id number] Toña Ambulatory BMSBuilding: [place] Summer BMS.Count includes the [facility] Repository 03/16/2018 [id number] Toña Ambulatory BMSBuilding: [place] Summer BMS.CF.[facility] Repository 03/16/2018 [id number] Toña Ambulatory BMSBuilding: [place] Summer BMS.Count includes the [facility] Repository 03/16/2018 [id number] Toña Ambulatory BMSBuilding: [place] Summer BMS..[facility] Repository 03/16/2018 [id number] Toña Ambulatory BMSBuilding: [place] Summer BMS..[facility] Repository 03/16/2018 [id number] Toña Ambulatory BMSBuilding: [place] Summer BMS.[facility] Repository 02/20/2018/ [id number] Ambulatory [address] ding:[facility] System rac Repository 01/29/2018 [id number] Ambulatory [facility] ding:WOBLAB Repository 01/09/2018/ [id number] Ashlie El Ambulatory [address] ding:[employer] System racRoom: Repository Room 1 01/01/2018 [id number] Ambulatory [place] [facility] ding:[facility] Repository 12/12/2017/ [id number] Ashlie El Ambulatory [address] ding:[facility] System racRoom: Repository Room 2 11/19/2017/ [id number] Ambulatory [address] ding:[facility] System rac Repository 11/05/2017/ [id number] Ambulatory [address] ding:[facility] System rac Repository 10/22/2017/ [id number] David Josue, Inpatient [address] ding:SH.[facility] Health oom: System 0335Bed: 01 Repository 08/20/2017/ [id number] Ambulatory [address] ding:[facility] System rac Repository 07/31/2017/ [id number] Payal, Ambulatory [address] ding:[facility]P System racRoom: Repository Room 2 07/23/[id number] [facility] System ([place]) Repository 07/11/2017 [id number] Ambulatory BuildinM [facility] ([place] Repository PAYERS PAYERS ENCOUNTER GUARANTOR PAYER SUBSCRIBER SOURCE 05/30/2018 ANTONETTE Saba [facility] [place]415 06/19 S Insurance:[facility]SA[facility]OS[facility]ITALB: [facility] Number: [id number] Clinic [facility], [id number] Repository [place] [address]Cgx: Date:1451-36-91BR [address]VWJENA ARCHER () [address]NR: 05/30/2018 Secondary NOT GIVENUNK [place] Insurance:SELF PAY [facility] Number: Effective Repository Date:2018-05-30 05/14/2018 [facility]ATIONDOB: Insurance:AetnaPolicy [place]: [facility] Number: [id number] Repository 1/2 [address] WATER [id number] [place], Date:Plan Name:Health [place] [id number]: (HP) 05/14/2018 [facility] Insurance:CaresourceP [place]: [facility] Number: [id number] Repository [id number] 1/2 S WATER Date:Plan [place], Name:HealthP [address] [place] [phone]: [place], [place] [id number]: [phone] ([phone] 05/14/2018 [facility]PORATIONDOB: Insurance:AetnaPolicy [place]: [facility] Number: [id number] Repository 1/2 [address] WATER [id number] [place], Date:Plan Name:Health [place] [id number]: (HP) 05/14/2018 [facility] Insurance:CaresourceP [place]: [facility] Number: [id number] Repository [id number] 1/2 S WATER Date:Plan [facility] Name:HealthP [address] Box [place] [phone]: [place], [place] [phone]: [phone] ([phone] 05/14/2018 [facility] Insurance:AetnaPolicy [place]: [facility] Number: [id number] Repository 1/2 [address] WATER [id number] [place], Date:Plan Name:Health [place] [id number]: (HP) 03/16/2018 [facility]415 1/2 S Insurance:AETNAPolicy [place]DOB: [facility] WATER Number: [id number] Clinic Weston Hospital, [id number] [place]ository [place] [address]Eyu: Date:3202-65-81QV [address]OJJENA ARCHER () [address]FN: 03/16/2018 Secondary NOT GIVENUNK [place] Insurance:SELF PAY [facility] Number: Effective Repository Date:2018-03-15 03/16/2018 WHITMAN N Primary [place] [id number] 1/2 S Insurance:AETNAPolicy [place]: Community WATER Number: [id number] Clinic Weston Hospital, [id number] [place]ository [place] [address]Ywm: Date:9534-09-40OL [address]JENA ARCHER () [address]PC: 03/16/2018 Secondary NOT GIVENUNK [place] Insurance:SELF PAY [facility] Number: Effective Repository Date:2018-03-16 03/16/2018 WHITMAN Jayant Primary MONCHO K [place] [id number] 1/2 S Insurance:AETNAPolicy [place]: Community WATER Number: [id number] Clinic Weston Hospital, [id number] [place]ository [place] [address]Tqb: Date:8223-55-96OJ [address]GQJENA ARCHER () [address]OV: 03/16/2018 Secondary NOT GIVENUNK [place] Insurance:SELF PAY [facility] Number: Effective Repository Date:2018-03-16 03/16/2018 WHITMAN Jayant Primary MONCHO K [place] [id number] 1/2 S Insurance:AETNAPolicy [place]OB: Community WATER Number: [id number] Clinic Weston Hospital, [id number] Repository [place] [address]Off: Date:9066-53-12XA [address]JENA ARCHER () [address]WE: 03/16/2018 Secondary NOT GIVENUNK [place] Insurance:SELF PAY Community [facility] Number: Effective Repository Date:2018-03-16 03/16/2018 ANTONETTE Saba Primary Mon[place] [id number] 1/2 S Insurance:AETNAPolicy [place]: Community WATER Number: [id number] Hospital P[facility] [id number] Repository [place] [address]Ikq: Date:7212-47-37DQ [address] JENA HERNANDEZ () [address]WN: 03/16/2018 Secondary NOT GIVENUNK [place] Insurance:SELF PAY [facility] Number: Effective Repository Date:2018-03-16 03/16/2018 ANTONETTE [place]415 1/2 S Insurance:AETNAPolicy [place]OB: Community WATER Number: [id number] Hospital Pembroke [id number] Repository [place] [address]Brw: Date:9084-37-44UO [address] JENA HERNANDEZ () [address]TO: 03/16/2018 Secondary NOT GIVENUNK [place] Insurance:SELF PAY Community [facility] Number: Effective Repository Date:2018-03-16 03/16/2018 ANTONETTE Mcnulty [id number] 1/2 S Insurance:AETNAPolicy [place]OB: Community WATER Number: [id number] Hospital Pembroke [id number] [place]ository [place] [address]Vfg: Date:9257-55-95SB [address] JENA HERNANDEZ () [address]HI: 03/16/2018 Secondary NOT GIVENUNK [place] Insurance:SELF PAY Community [facility] Number: Effective Repository Date:2018-03-16 01/29/2018 Antonette [place] S Insurance:AETNAPolicy [place]OB: Community [place] Number: [id number] Regional Medical Center, [id number] Repository [place] [address]Pdi: Date:7105-66-11RX [address] [place] [address] (HP) [address]OY: 01/29/2018 Secondary NOT GIVENUNK [place] Insurance:SELF PAY [facility] Number: Effective Repository Date:2018-01-29 01/01/2018 Antonette Zhou [place] [id number] S Insurance:AETNAPolicy [place]DOB: [facility] [place] Number: [id number] Regional Medical Center [id number] [place]ository [place] [address]Wkn: Date:3595-96-20CY [address] [place] [address] (HP) [phone]: 01/01/2018 Secondary NOT GIVENUNK [place] Insurance:SELF PAY [facility] Number: Effective Repository Date:2018-01-01 12/12/2017 WHITMAN Jayant Primary MONCHO [facility] [place]OB: Insurance:AETNAPolicy [place]OB: [facility] W Number: Effective [id number] System 2ND Date:2017-11-26 - BRIDGE [facility] [id number] Name:CD:[id number] [facility] [address]Jum: [id number], [place] [address]Zoj: [id number]: [phone] ([phone] (HP) () 11/19/2017 WHITMAN N Primary MONCHO HENDERSONDOB: Insurance:1500 [place]DOB: [facility] AETNAPolicy Number: [id number] System LUTZ Effective S [address] Repository [place], [place] Date:2017-08-20 [facility], [id number]: [id number] [place] [id number]: Name:CD:[id number] O (HP) [address], [place] (HP)Tel: [phone]: ([phone] 11/05/2017 ANTONETTE Saba [facility] MONCHO HENDERSONDOB: Insurance:AETNAPolicy BANSAINT MARY'S HOSPITALB: [facility] Number: Effective [id number] System LUTZ Date:2017-10-26 - [place] Repository [place], [place] [id number] Bay Park Hospital, [id number]: Name:CD:[id number] [address] [place] [address] [place] [address]Vzr: (HP) [phone]: [phone] (HP) (WP) 10/22/2017 ANTONETTE Saba [facility] MONCHO HENDERSONDOB: Insurance:AETNAPolicy HAILEESAINT MARY'S HOSPITALB: [facility] Number: Effective [id number] System LUTZ Date:2017-10-22 - [place] Repository [place] 0270-64-55FqwsProMedica Bay Park Hospital, [id number]: Name:CD:[id number] [address] [place] [address] [place] [address]Seq: (HP) [id number]: [phone] (HP) (WP) 08/20/2017 ANTONETTE Saba [facility] MONCHO BISHOPB: Insurance:1500 [facility] AETNAPolicy Number: [id number] System LUTZ Effective S [address] Repository [place], [place] Date:2017-05-28 - [facility], [id number]: [id number] [place] [id number]: Name:CD:[id number] O () [address] [place] [address] (HP)Tel: [phone]: [phone] 07/31/2017 ANTONETTE Zhou Mormonism [facility]ATIONDOB: Insurance:1500 [facility]ATIONDOB: [facility] [id number] AETNAPolicy Number: [id number] [place] Date:2017-07-31 - [facility], [id number]: [id number] [place] [id number]: Name:CD:[id number] Vinod () [address] [place] [address] ()Tel: [phone]: [phone]
== END 2018-05-31 00:40 | disposition home or self-care (01) ==
LOC: WPOUT 22:51 → WP 22:52
PROVIDERS: Family Provider Nurse Practitioner Family; PCP Nurse Practitioner Family; Visit Provider Obstetrics & Gynecology
DX: O60.02 Preterm labor without delivery, second trimester (principal); Z3A.26 26 weeks gestation of pregnancy; Z91.040 Latex allergy status; Z90.49 Acquired absence of other specified parts of digestive tract
CPT/HCPCS: 59050; 84112; 99218; G0378

== ENCOUNTER 2018-07-23 20:00 | Outpatient (CLI) | payer OTHER, SELFPAY ==
[2018-07-23 20:34] VITALS: BMI 28.6
[2018-07-23 21:03] LABS: ROM Internal Control Test YES-OK TO RESULT pt. (Internal QC); ROM Patient Test Negative (Negative); Record Kit Lot#, ROM+ J7836
[2018-07-23 21:25] VITALS: RESP 18
--- NOTE | 2018-07-23 22:58 | OB.TRI.NOTE ---
History of Present Illness Date of Service: 07/23/18 Was patient seen by the physician?: Yes Reason For Visit: R/O SROM Date of Service: 07/23/18 Final KENNEDI: 08/31/18 Gestational age: 34 Weeks and 3 Days History of Present Illness: Possible LOF. Allergies latex Allergy (Verified 05/31/18 00:25) Rash - Pertinent Past Medical History Surgical History: Past Surgical History (Last Updated 03/16/18 @ 04:35 by Maura Ding MD) H/O shoulder surgery History of tonsillectomy and adenoidectomy S/P cholecystectomy Laboratory Studies: Laboratory Tests 07/23/18 Range/Units 20:15 Vag Amniotic Fld Detect Negative (Negative) Physical Exam General: Alert, Oriented x3 Abdomen: Soft, Non Tender, Non-Distended, Gravid PRODUCTION REPRODUCTION MANAGER: Normal external genitalia - SSE - pool negative Cervix Dilation (cm): 0 Effacement (%): 0 NST - FHR Rate Baby A Baseline: 120 Variability:: Moderate Accelerations:: 15 x 15 Decelerations:: None NST Reactive:: Yes Uterine Activity:: quiet Impression/Plan 23yo female @ 34&3 with threatened PTL ROM+ & SSE negative for PPROM
--- NOTE | 2018-07-23 23:02 | OB.TRI.HP_ITS ---
History of Present Illness Date of Service: 07/23/18 Was patient seen by the physician?: Yes Reason For Visit: R/O SROM Date of Service: 07/23/18 Final KENNEDI: 08/31/18 Gestational age: 34 Weeks and 3 Days History of Present Illness: Possible LOF. 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
== END 2018-07-23 21:30 | disposition home or self-care (01) ==
LOC: WPOUT 20:20 → WP 20:20
PROVIDERS: Family Provider Nurse Practitioner Family; PCP Nurse Practitioner Family; Visit Provider Obstetrics & Gynecology
DX: O60.03 Preterm labor without delivery, third trimester (principal); Z3A.34 34 weeks gestation of pregnancy; Z90.49 Acquired absence of other specified parts of digestive tract; Z91.040 Latex allergy status
CPT/HCPCS: 59025; 59050; 84112; 99218; G0378

== ENCOUNTER 2018-07-30 19:41 | Inpatient (IN) | payer OTHER, MEDICAID, SELFPAY ==
[2018-07-30] VITALS (9 sets, daily range): BP systolic 101–153; BP diastolic 51–91; PULSE 63–82; RESP 16–18; TEMP 36.2–36.7; O2SAT 98–99; BMI 28.5
[2018-07-30] MEDS: Lactated Ringers 500 ML 999 ML IV (17:00)
[2018-07-30] MEDS: Betamethasone/Betamethasone 30 MG/5 ML Vial 12 MG IM (17:57)
[2018-07-30] MEDS: Nalbuphine 10 MG/ML Ampul IV (19:06)
[2018-07-30 19:07] LABS: Absolute Lymphocyte Count 2.05 X10^3/ul (0.83-4.51); Absolute Neutrophil Count 7.6 X10^3/uL (2.0-7.7); Basophil# 0.03 X10^3/uL; Basophil% 0.3 % (0-1); Eosinophil# 0.13 X10^3/uL; Eosinophils% 1.2 % (0-5); Hematocrit 36.8 % (37-47); Lymphocyte # 2.05 X10^3/ul (4.0); Lymphocyte % 18.3 % (19-41); Mean Corp Hgb Conc 32.6 g/gl (32-36); Mean Corpuscular Hgb 32.3 pg (27.0-32.0); Mean Corpuscular Volume 99.2 fL (81-99); Mean Platelet Vol. 12.4 fl (6.2-12.0); Monocyte# 1.37 X10^3/uL; Monocyte% 12.2 % (0-10); Neutrophil # 7.61 X10^3/uL (2.7-7.7); Neutrophil % 67.6 % (47-70); Platelet Count 312 K/mm3 (150-450); RBC Distribution Width CV 12.7 % (11.6-14.6); RBC Distribution Width SD 46.2 fl (35.1-43.9); Red Blood Count 3.71 M/mm3 (4.2-5.4); White Blood Count 11.2 K/mm3 (4.4-11.0)
[2018-07-30 19:10] LABS: POSITIVE COUNT NO; POSITIVE DIFFERENTIAL NO; POSITIVE MORPHOLOGY NO
[2018-07-30 19:18] LABS: International Normalized Ratio 0.9; Prothrombin Time (Protime)PT. 12.1 SECONDS (11.7-14.9)
[2018-07-30 19:19] LABS: Fibrinogen 443 mg/dl (203-444); Partial Thromboplast Time 27.8 Seconds (24.1-36.2)
[2018-07-30 19:26] LABS: ROM Internal Control Test YES-OK TO RESULT pt. (Internal QC)
[2018-07-30 19:27] LABS: ROM Patient Test POSITIVE (Negative)
[2018-07-30 19:28] LABS: Record Kit Lot#, ROM+ J7836
[2018-07-30 20:07] LABS: Group B Strep DNA By PCR POSITIVE (Negative); Probe Check PASS
[2018-07-30] MEDS: Sodium Citrate/Citric Acid 30 ML UDC PO (20:08)
[2018-07-30 20:13] LABS: Amphetamine Urine VISTA NEGATIVE (<1000 ng/mL); Barbiturate Urine VISTA NEGATIVE (< 200 ng/mL); Benzodiazepine Urine VISTA NEGATIVE (< 200 ng/mL); Cocaine Urine VISTA NEGATIVE (< 300 ng/mL); Ecstacy Urine VISTA POSITIVE (< 500 ng/mL); Methadone Urine VISTA NEGATIVE (< 300 ng/mL); PCP Urine VISTA NEGATIVE (< 25 ng/mL); THC Urine VISTA NEGATIVE (< 50 ng/mL); Vista UDS pH Range 5
[2018-07-30] MEDS: Cefazolin 2 GM in 0.9% Normal Saline 100 ML IV (20:30)
--- NOTE | 2018-07-30 20:38 | PCM.HP.OB ---
History Date of Admission: 03/16/18 Final KENNEDI: 08/31/18 Gestational age: 35 Weeks and 3 Days History of this : This is a 23 year-old, 1 para 0 who presents at 35 3/7 gestational weeks with EDC of 08/31/2018 by first trimester ultrasound alone presented to the office today complaining of abdominal pain. She states the abdominal pain was constant but then she would have episodes where it would increase in intensity and then decrease. The pain got worse and worse throughout the day. She also had some increased vaginal discharge. She had no gross vaginal bleeding. She had some nausea because the pain was so intense. She also had some pelvic pressure. She is known to be breech, and this was confirmed today in the office. Patient reports history of irritable bowel syndrome, celiac disease, abnormal Pap smear, and abdominal pain throughout her lifetime and intermittently during the . She has a history of depression. Surgical History: Surgical History (Last Updated 03/16/18 @ 04:35 by Maura Ding MD) H/O shoulder surgery Z98.890 History of tonsillectomy and adenoidectomy Z98.890 S/P cholecystectomy K58.9 Allergies latex Allergy (Verified 05/31/18 00:25) Rash Home Medications: Home Medications Fluoxetine HCl 80 mg PO QHS 03/15/18 Ranitidine [Zantac] 150 mg PO QHS 03/15/18 Goltry-3 Fatty Acids/Fish Oil [Goltry 3 1,000 mg Softgel] 1 cap PO DAILY 03/16/18 No122/Iron/Folic Acid [ Multi Tablet] 1 tab PO QHS 03/16/18 SimETHICONE [Mylicon] 80 mg PO PCHS tablet 03/19/18 Omeprazole 1 tab PO DAILY 05/31/18 Acetaminophen [Tylenol] 500 mg PO Q4H PRN PRN 07/23/18 buPROPion SR [Wellbutrin SR (150mg tablets)] 150 mg PO QHS 07/30/18 Smoking Status: Never smoker Alcohol: None Number of Fetus(es): 1 Heart Tracing: Normal baseline, moderate variability, spontaneous accelerations. No recurrent deceleration, category 1 and reactive TOCO Analysis: Difficult to monitor contractions, no regular contraction pattern identified History Past Pregnancies: Past Pregnancies Delivery Date Name GA/Weeks Outcome Route Weight Infant Gender Labor Length Anesthesia Delivery Location Provider FOB Expected Delivery Method: Primary Section Review of Systems Constitutional: Reports: Fatigue. Denies: Anorexia, Chills, Fever Eyes: Denies: Blurred vision Cardiovascular: Denies: Chest Pain, Chest Pressure Respiratory: Denies: Cough, Shortness of Breath Gastrointestinal: Reports: Abdominal Pain, Nausea. Denies: Constipation, Vomiting Genitourinary: Denies: Dysuria, Frequency, Hesitancy, Urgency Skin: Denies: Rash Neurological: Denies: Blurred vision, Change in Speech, Slurred speech, Confusion Psychiatric: Reports: Anxiety - Appropriately upset Physical Exam General: Alert, Cooperative, No apparent distress Cardiovascular: Regular rate Lungs: Clear to auscultation, Normal air movement Abdomen: Soft, Gravid, Appropriate for Gestational Age, - - No rebound or guarding, no fundal tenderness, fundus seems to remain firm, difficult to appreciate contractions due to firmness of the uterus Extremities:: No edema Neurological: Cranial nerves II-XII grossly intact 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 Patient was admitted to labor and delivery for abdominal pain. Possible labor. Known to be breech. I discussed with her that clinically and external cephalic version attempt was not indicated. The breech was very well engaged, she was having a significant amount of pain, and on ultrasound there was a small normal amount of fluid. Abruption labs were ordered and all were normal, her fibrinogen was noted to be in the high normal range. heart tones are reassuring. However, her amnio sure came back positive for rupture membranes. At this point, I discussed with the patient risk benefits and alternatives to primary section for breech fetus with premature rupture of membranes. Patient's questions were answered to her satisfaction, consent was signed and she desired to proceed. She did receive 1 dose of betamethasone today. Banquet Attendant was consulted for delivery. Of note patient's tox screen is positive for ecstasy but she has been on Wellbutrin during the which can cause this result. She denies history of drug use
--- NOTE | 2018-07-30 20:40 | NURSING ---
17 F latex free means cath placed in OR by Mally prior to c/s
--- NOTE | 2018-07-30 20:42 | HP.PCM_ITS ---
History Date of Admission: 03/16/18 Final KENNEDI: 08/31/18 Gestational age: 35 Weeks and 3 Days History of this : This is a 23 year-old, 1 para 0 who presents at 35 3/7 gestational weeks with EDC of 08/31/2018 by first trimester ultrasound alone presented to the office today complaining of abdominal pain. She states the abdominal pain was constant but then she would have episodes where it would increase in intensity and then decrease. The pain got worse and worse throughout the day. She also had some increased vaginal discharge. She had no gross vaginal bleeding. She had some nausea because the pain was so intense. She also had some pelvic pres sure. She is known to be breech, and this was confirmed today in the office. Patient reports history of irritable bowel syndrome, celiac disease, abnormal Pap smear, and abdominal pain throughout her lifetime and intermittently during the . She has a history of depression. Surgical History: Surgical History (Last Updated 03/16/18 @ 04:35 by Maura Ding MD) H/O shoulder surgery Z98.890 History of tonsillectomy and adenoidectomy Z98.890 S/P cholecystectomy K58.9 Allergies latex Allergy (Verified 05/31/18 00:25) Rash Home Medications: Home Medications Fluoxetine HCl 80 mg PO QHS 03/15/18 Ranitidine [Zantac] 150 mg PO QHS 03/15/18 Moville-3 Fatty Acids/Fish Oil [Moville 3 1,000 mg Softgel] 1 cap PO DAILY 03/16/18 No122/Iron/Folic Acid [ Multi Tablet] 1 tab PO QHS 03/16/18 SimETHICONE [Mylicon] 80 mg PO PCHS tablet 03/19/18 Omeprazole 1 tab PO DAILY 05/31/18 Acetaminophen [Tylenol] 500 mg PO Q4H PRN PRN 07/23/18 buPROPion SR [Wellbutrin SR (150mg tablets)] 150 mg PO QHS 07/30/18 Smoking Status: Never smoker Alcohol: None Number of Fetus(es): 1 Heart Tracing: Normal baseline, moderate variability, spontaneous accelerations. No recurrent deceleration, category 1 and reactive TOCO Analysis: Difficult to monitor contractions, no regular contraction pattern identified History Past Pregnancies: Past Pregnancies Delivery Date Name GA/Weeks Outcome Route Weight Infant Gender Labor Length Anesthesia Delivery Location Provider FOB Expected Delivery Method: Primary Section Review of Systems Constitutional: Reports: Fatigue. Denies: Anorexia, Chills, Fever Eyes: Denies: Blurred vision Cardiovascular: Denies: Chest Pain, Chest Pressure Respiratory: Denies: Cough, Shortness of Breath Gastrointestinal: Reports: Abdominal Pain, Nausea. Denies: Constipation, Vomiting Genitourinary: Denies: Dysuria, Frequency, Hesitancy, Urgency Skin: Denies: Rash Neurological: Denies: Blurred vision, Change in Speech, Slurred speech, Confusion Psychiatric: Reports: Anxiety - Appropriately upset Physical Exam General: Alert, Cooperative, No apparent distress Cardiovascular: Regular rate Lungs: Clear to auscultation, Normal air movement Abdomen: Soft, Gravid, Appropriate for Gestational Age, - - No rebound or guarding, no fundal tenderness, fundus seems to remain firm, difficult to apprec iate contractions due to firmness of the uterus Extremities:: No edema Neurological: Cranial nerves II-XII grossly intact 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 Patient was admitted to labor and delivery for abdominal pain. Possible labor. Known to be breech. I discussed with her that clinically and external cephalic version attempt was not indicated. The breech was very well engaged, she was having a significant amount of pain, and on ultrasound there was a small normal amount of fluid. Abruption labs were ordered and all were normal, her fibrinogen was noted to be in the high normal range. heart tones are reassuring. However, her amnio sure came back positive for rupture membranes. At this point, I discussed with the patient risk benefits and alternatives to primary section for breech fetus with premature rupture of membranes. Patient's questions were answered to her satisfaction, consent was signed and she desired to proceed. She did receive 1 dose of betamethasone today. Drug Abuse Resistance Education Officer was consulted for delivery. Of note patient's tox screen is positive for ecstasy but she has been on Wellbutrin during the which can cause this result. She denies history of drug use
[2018-07-30] MEDS: Oxytocin 30 units/NS 500 ml 30 UNITS/500 ML IV.SOLN 167 UNITS IV (20:56)
--- NOTE | 2018-07-30 21:00 | PLAC_PTH ---
PATIENT: ANTONETTE ARMSTRONG LOC: [facility] U#:[id number] AGE/SX: ROOM: WP011 RE07/30/[address]: Dr. Delicia Ashford MD : 1995 BED: 1 DIS: 08/03/2018 SPEC #: [id number] RECD: 07/30/18 23:31 STATUS: VICTOR HUGO RELuz #: [id number] ODALIS: 07/30/18 21:[address]: Delicia Ashford DEPT: SURGICAL PATHOLOGY RECD BY: Toney Power ENTERED: 07/31/18 08:12 SP TYPE: PLACENTA OTHR DR: Ashlie Erazo, [place] Tissues: Placenta, NOS Procedures: Surgery Specimen Level V HEADER OPERATION: Primary section PRE-OP DIAGNOSIS: PPROM, labor TISSUE SUBMITTED: Placenta MICROSCOPIC DIAGNOSIS Placenta: Placental disc - third trimester placenta (373 gm). Membranes - no pathologic diagnosis. Umbilical cord - three blood vessels and no pathologic diagnosis. SJ:valdo 08/02/18 MICROSCOPIC DESCRIPTION Slides are reviewed. GROSS DESCRIPTION SPECIMEN: PLACENTA / CLINICAL INFORMATION: A. Weight: 2.165 kg B. Gestational Age: 35 weeks C. Sex: Female PLACENTAL WEIGHT (POST FIXATION): 373 gm PLACENTAL DIMENSIONS: 15 x 12 x 3.5 cm PLACENTAL SHAPE: Usual ovoid PLACENTAL WEIGHT FOR GESTATIONAL AGE: Within 10-99th percentile MEMBRANES - Present A. Insertion: Marginal B. Site of rupture from edge: At edge of placental disc C. Color of membrane: Palacios-love D. Abnormalities: None UMBILICAL CORD - Present A. Color: Palacios-love B. Insertion: Eccentric C. Length: 2.5 cm D. Diameter: 1 cm E. Number of vessels: Three F. Abnormalities: None PLACENTAL DISC - Present A. Color of surface: Palacios-love B. surface abnormalities: None C. Maternal cotyledons: Intact with minimal tears D. Attached retro placental clot: No clot E. Cut surface: Dark red and spongy F. Lesions: None G. Separate clot: Absent SECTIONS SUBMITTED: 1. Membrane roll and umbilical cord ( end inked) 2. Placental disc, and maternal surfaces 3. Placental disc, and maternal surfaces 4. Placental disc, and maternal surfaces AM:valdo 08/01/18 TC:4 CPT: 35917
--- NOTE | 2018-07-30 21:45 | PCM.OPRPT ---
Report of Operation Date of Procedure: 07/30/18 Pre-Operative Diagnosis: 35-3/7 weeks gestation, breech presentation, premature rupture of membranes Post-Operative Diagnosis: Same plus unicornuate uterus Surgery/Procedure Performed:: Primary low transverse section Via Pfannenstiel skin incision Description of Surgical Findings:: Vigorous female infant, small amount of amniotic fluid, placenta without obvious abruption, left-sided unicornuate uterus with what appeared to be a small remnant horn on the right side. The small remnant horn did seem to communicate with the left side. There was only one cervix preschool program director: Young Borges Type of Anesthesia:: Spinal Anesthesiologist: Cristel Jeffery Special Medications: None Specimen's removed: Placenta Drains: Martin Estimated Blood Loss (mL): 700 Fluids Replaced: 1000 cc Description of Procedure: The patient was taken to the operating room. She was prepped and draped in the dorsal supine position with a leftward tilt. A Pfannenstiel skin incision was made approximately 2 cm above the symphysis pubis and carried through to underlying layer fascia with the scalpel. The fascia was incised incised in the midline and extended laterally with the Atkins scissors. The fascia was dissected off the rectus muscles with blunt and sharp dissection. The rectus muscles were in the midline and the peritoneum was entered bluntly. The peritoneal incision was stretched and the bladder blade was placed. The uterine incision was made in a low transverse fashion with the scalpel and extended superiorly and inferiorly with blunt dissection. The amniotic membranes were ruptured bluntly and a minimal amount of clear amniotic fluid returned. The 's head was brought to the incision in the flexed position and delivered without difficulty. The remainder of the was delivered with gentle traction and fundal pressure in the standard fashion. The mouth and nares were bulb suctioned. The cord was clamped and cut as the was stimulated. Cord clamping was delayed. The was handed off to the waiting nursing staff. The placenta was delivered with fundal massage and gentle traction in the standard fashion. The uterus was exteriorized and cleared of all clots and debris. The cervix was dilated with a ring forcep. The uterine incision was closed with #1 Vicryl in a running locked fashion. A second layer of the same suture was used in an imbricating fashion. A vicmvj-do-tyzhl suture was needed in a sinus just to the left of the midline. The incision was examined and was found to be hemostatic. It was noted that the uterus appeared to be a left unicornuate uterus with a very small right-sided horn. No septum was appreciated. The uterus was placed back into the peritoneal cavity and hemostasis was again confirmed. The rectus muscles were examined and any bleeding was Bovie cauterized. The parietal peritoneum and rectus muscles were closed en bloc with an 0 Vicryl running suture. The surgical teams outer gloves were then changed. The rectus fascia was examined and any bleeding was Bovie cauterized and the rectus fascia was closed with 1 Vicryl suture in a running standard fashion. The subcutaneous tissue was examining and any bleeding was Bovie cauterized. The subcutaneous tissue was reapproximated with 3-0 Vicryl suture. The skin was closed in a subcuticular fashion. I performed the entire procedure with assistance. All sponge, lap, and needle counts were correct. The patient was taken to her room for recovery in a stable condition. Grafts/Implants Used: None - Complications None - Admit VTE Documentation VTE Present on Admission: No VTE Mechan Device Prophylaxis: SCD's VTE Pharm Prophylaxis ordered?: No Reason prophylaxis not ordered:: Procedure Not Indicated Delivery Classification: DIONI Final KENNEDI: 08/31/18 Gestational age: 35 Weeks and 3 Days Amniotic Membrane Rupture Type: Spontaneous Amniotic Fluid Description: Clear Placenta Disposition: Sent to Pathology Cord Entanglement: Around neck x 1, loose Nuchal Cord Compression: Without compression Gender: Female (1 minute): 8 (5 minute): 9 Vaginal Delivery Final KENNEDI: 08/31/18 Gestational age: 35 Weeks and 3 Days
[2018-07-31] VITALS (16 sets, daily range): BP systolic 97–133; BP diastolic 53–80; PULSE 60–75; RESP 16–18; TEMP 36.3–37; O2SAT 97–100
[2018-07-31] MEDS: FLUoxetine 20 MG Capsule 80 MG PO ×2 (01:08→21:40)
[2018-07-31] MEDS: Senna/Docusate Sodium 1 Tablet PO ×3 (01:08→21:40)
[2018-07-31] MEDS: buPROPion (XL) 150 MG TABLET.XL PO ×2 (01:08→21:41)
[2018-07-31] MEDS: Lactated Ringers 1,000 ML 100 ML IV ×2 (02:15→11:05)
[2018-07-31] MEDS: Ketorolac 30 MG/ML Syringe IV ×4 (02:16→20:05)
[2018-07-31 06:35] LABS: Hematocrit 35.3 % (37-47); Hemoglobin 11.7 g/dl (12.0-15.0); Mean Corp Hgb Conc 33.1 g/gl (32-36); Mean Corpuscular Hgb 32.9 pg (27.0-32.0); Mean Corpuscular Volume 99.2 fL (81-99); Mean Platelet Vol. 11.2 fl (6.2-12.0); Platelet Count 280 K/mm3 (150-450); RBC Distribution Width CV 12.7 % (11.6-14.6); RBC Distribution Width SD 46.1 fl (35.1-43.9); Red Blood Count 3.56 M/mm3 (4.2-5.4); White Blood Count 23.1 K/mm3 (4.4-11.0)
[2018-07-31 06:43] LABS: Scan Indicated on CBC? Y/N NO
[2018-07-31] MEDS: Acetaminophen 500 MG Tablet 1000 MG PO (15:08)
--- NOTE | 2018-07-31 15:25 | PN.OBGYN_ITS ---
Subjective: Pain well controlled, average lochia. Denies nausea or vomiting. Tolerating regular diet. - Physical Exam General: Alert, Cooperative, No apparent distress Abdomen: Soft, Non-Distended, Distended - Mildly, Tender - Appropriately Extremities: Edema - 1+ Skin: Incision - Bandage: clean dry and intact Vital Signs Temp Pulse Resp BP Pulse Ox 97.9 F 72 16 97/53 L 99 07/31/18 12:09 07/31/18 12:09 07/31/18 15:00 07/31/18 12:09 07/31/18 15:00 Oxygen Delivery Method Room Air Weight: 75.3 kg Body Mass Index (BMI) 28.5 Intake and Output for Last 24 Hours 07/29/18 07/30/18 07/31/18 23:59 23:59 23:59 Intake Total 2209 / 2209 505 / 505 Output Total 400 / 400 300 / 300 Balance 1809 / 1809 205 / 205 Laboratory Tests Past 24 Hrs 07/30/18 07/30/18 07/30/18 18:30 18:30 18:30 WBC RBC Hgb Hct MCV MCH MCHC RDW RDW Differential Plt Count MPV Immature Gran % (Auto) Neut % (Auto) Lymph % (Auto) Bremer % (Auto) Eos % (Auto) Baso % (Auto) Absolute Neuts (auto) Absolute Lymphs (auto) Total Counted PT 12.1 INR 0.9 APTT 27.8 Fibrinogen 443 Vag Amniotic Fld Detect Urine Opiates Screen Urine Methadone Screen Ur Barbiturates Screen Ur Phencyclidine Scrn Ur Amphetamines Screen U Methamphetamin-MDMA U Benzodiazepines Scrn Urine Cocaine Screen U Cannabinoids Screen Ur Drug Screen Comment Group B Strep DNA POSITIVE H Specimen Comment Not Reportable Blood Type O POSITIVE Antibody Screen NEGATIVE 07/30/18 07/30/18 07/30/18 18:30 18:30 19:42 WBC 11.2 H RBC 3.71 L Hgb 12.0 Hct 36.8 L MCV 99.2 H MCH 32.3 H MCHC 32.6 RDW 12.7 RDW Differential 46.2 H Plt Count 312 MPV 12.4 H Immature Gran % (Auto) 0.400 Neut % (Auto) 67.6 Lymph % (Auto) 18.3 L Bremer % (Auto) 12.2 H Eos % (Auto) 1.2 Baso % (Auto) 0.3 Absolute Neuts (auto) 7.6 Absolute Lymphs (auto) 2.05 Total Counted Not Reportable PT INR APTT Fibrinogen Vag Amniotic Fld Detect POSITIVE H Urine Opiates Screen NEGATIVE Urine Methadone Screen NEGATIVE Ur Barbiturates Screen NEGATIVE Ur Phencyclidine Scrn NEGATIVE Ur Amphetamines Screen NEGATIVE U Methamphetamin-MDMA POSITIVE H U Benzodiazepines Scrn NEGATIVE Urine Cocaine Screen NEGATIVE U Cannabinoids Screen NEGATIVE Ur Drug Screen Comment Group B Strep DNA Specimen Comment Blood Type Antibody Screen 07/31/18 05:50 WBC 23.1 H RBC 3.56 L Hgb 11.7 L Hct 35.3 L MCV 99.2 H MCH 32.9 H MCHC 33.1 RDW 12.7 RDW Differential 46.1 H Plt Count 280 MPV 11.2 Immature Gran % (Auto) Neut % (Auto) Lymph % (Auto) Bremer % (Auto) Eos % (Auto) Baso % (Auto) Absolute Neuts (auto) Absolute Lymphs (auto) Total Counted PT INR APTT Fibrinogen Vag Amniotic Fld Detect Urine Opiates Screen Urine Methadone Screen Ur Barbiturates Screen Ur Phencyclidine Scrn Ur Amphetamines Screen U Methamphetamin-MDMA U Benzodiazepines Scrn Urine Cocaine Screen U Cannabinoids Screen Ur Drug Screen Comment Group B Strep DNA Specimen Comment Blood Type Antibody Screen Medical Necessity - Tobacco Use Smoking Status: Never smoker Assessment/Plan All Active Problems (Last Updated 03/16/18 @ 04:29 by Maura Ding MD) Right lower quadrant abdominal pain (Acute) Ileus (Acute) 16 weeks gestation of (Acute) Nausea and vomiting (Acute) Postoperative day #1 status post primary Mirena IUD not placed due to unicornuate uterus. I discussed with the patient this and she states understanding. Will discuss contraception at her postoper ative visits. She is working on breast-feeding. Routine care for now. is in special care nursery and doing well.
[2018-07-31] MEDS: 0.9% Saline Lock 10 ML Syringe IV ×2 (19:39→20:05)
[2018-07-31] MEDS: oxyCODONE 5 MG Tablet PO (22:21)
[2018-08-01] MEDS: Ketorolac 30 MG/ML Syringe IV ×4 (02:09→20:48)
[2018-08-01] MEDS: 0.9% Saline Lock 10 ML Syringe IV ×3 (02:09→20:48)
[2018-08-01 02:11] VITALS: BP 113/67; PULSE 73; RESP 16; TEMP 36.7; O2SAT 98
[2018-08-01] MEDS: oxyCODONE 5 MG Tablet PO ×3 (03:03→18:27)
[2018-08-01 08:35] VITALS: BP 124/78; PULSE 74; RESP 14; TEMP 36.7; O2SAT 98
[2018-08-01] MEDS: Acetaminophen 500 MG Tablet 1000 MG PO ×2 (09:18→20:48)
[2018-08-01] MEDS: Senna/Docusate Sodium 1 Tablet PO (09:18)
--- NOTE | 2018-08-01 11:04 | PCM.PN.OB ---
Subjective: pain well controlled, average lochia, +Flatus, no BM, working on - Physical Exam General: Alert, Cooperative, No apparent distress Abdomen: Soft, Distended - mildly, softly, Tender - appropriately Extremities: No edema Skin: Incision - bandage clean, dry and intact Vital Signs Temp Pulse Resp BP Pulse Ox 98.1 F 74 14 124/78 H 98 08/01/18 08:35 08/01/18 08:35 08/01/18 08:35 08/01/18 08:35 08/01/18 08:35 Oxygen Delivery Method Room Air Weight: 75.3 kg Body Mass Index (BMI) 28.5 Intake and Output for Last 24 Hours 07/30/18 07/31/18 08/01/18 23:59 23:59 23:59 Intake Total 2209 / 2209 505 / 505 Output Total 400 / 400 500 / 500 Balance 1809 / 1809 5 / Medical Necessity - Tobacco Use Smoking Status: Never smoker Assessment/Plan All Active Problems (Last Updated 03/16/18 @ 04:29 by Maura Ding MD) Right lower quadrant abdominal pain (Acute) Ileus (Acute) 16 weeks gestation of (Acute) Nausea and vomiting (Acute) POD#2 doing well routine care working on in [facility]
[2018-08-01 14:10] VITALS: BP 116/75; PULSE 71; RESP 18; TEMP 36.8; O2SAT 98
[2018-08-01 20:48] VITALS: BP 131/77; PULSE 75; RESP 17; TEMP 37.3; O2SAT 96
[2018-08-01 21:41] VITALS: BP 120/75; PULSE 84; RESP 16
[2018-08-01] MEDS: Docusate Sodium 100 MG Capsule PO (22:50)
[2018-08-01] MEDS: FLUoxetine 20 MG Capsule 80 MG PO (22:50)
[2018-08-01] MEDS: buPROPion (XL) 150 MG TABLET.XL PO (22:50)
[2018-08-02] VITALS (7 sets, daily range): BP systolic 105–133; BP diastolic 66–87; PULSE 60–87; RESP 15–18; TEMP 36.7–37.1; O2SAT 96–98
--- NOTE | 2018-08-02 05:50 | NURSING ---
Pt. has c/o increasing headache pain again. Head to toe assessment performed and vital signs obtained. Reflexes and clonus also checked. No clonus noted and reflexes appropriate. Pt. says her vision is occasionally blotchy, but only when the headache is at it's worse pain. She states the vision symptoms are not consistent.
--- NOTE | 2018-08-02 06:03 | NURSING ---
Pt. called RN back to room with c/o chest pain. All vital signs WNL. Hearts sounds auscultated and apical pulse assessed. No irregularities noted and apical pulse 70 bpm. Pt. states chest pain is a 4 out of 10, saying that it's just uncomfortable. Pt. skin pink and no changes in pt. status are noted. Charge nurse notified and came to pt. room. This RN called physician to inform of pt. headache and chest pain. Pt. given GasX to help with any indigestion. Will continue to monitor.
--- NOTE | 2018-08-02 06:31 | NURSING ---
Winnie Fuller CRNA updated on patient condition unchanged. Dr Munoz requesting she be seen now. Dr Miki Valenzuela to be in before 0700AM. Gregory states he will update and send him to see the patient DIONI. Relayed information and plan to the patient at this time. She denies questions or concerns. Resting with eyes closed.
--- NOTE | 2018-08-02 08:01 | NURSING ---
0745 Dr Bonita Valenzuela into see pt consent obtained for blood patch; vital signs obtained blood patch done; pt with instant relief from headache; pt to lay flat for [address] Bonita Valenzuela. Pt tolerated procedure well
[2018-08-02] MEDS: Acetaminophen 500 MG Tablet 1000 MG PO (10:01)
[2018-08-02] MEDS: Docusate Sodium 100 MG Capsule PO ×2 (10:02→21:34)
--- NOTE | 2018-08-02 13:37 | PN.OBGYN_ITS ---
Subjective: Pain well controlled, average lochia. Positive bowel movement. Tolerating regular diet. Working on breast-feeding. Acute onset of headache yesterday, relieved by lying down. Not proved overnight with conservative measures. She had a consultation with anesthesiology this morning and they placed a blood patch. - Physical Exam General: Alert, Cooperative, No apparent distress Abdomen: Soft, Non-Distended, Tender - Appropriately Extremities: Edema - Trace, 2+ DTRs, no clonus Skin: Incision - Bandage clean dry and intact Vital Signs Temp Pulse Resp BP Pulse Ox 98.5 F 68 18 105/66 97 08/02/18 09:56 08/02/18 09:56 08/02/18 09:56 08/02/18 09:56 08/02/18 09:56 Oxygen Delivery Method Room Air Weight: 75.3 kg Body Mass Index (BMI) 28.5 Intake and Output for Last 24 Hours 07/31/18 08/01/18 08/02/18 23:59 23:59 23:59 Intake Total 505 / 505 Output Total 500 / 500 Balance 5 / 5 Medical Necessity - Tobacco Use Smoking Status: Never smoker Assessment/Plan All Active Problems (Last Updated 03/16/18 @ 04:29 by Maura Ding MD) Right lower quadrant abdominal pain (Acute) Ileus (Acute) 16 weeks gestation of (Acute) Nausea and vomiting (Acute) Postoperative day 3 status post primary section. Patient is doing well from a postoperative standpoint. However, she had significant headache seem to be a spinal headache and she is status post blood patch will wait and see how she does with this, and likely she will be discharged tomorrow. is doing well in the special care nursery and they are working on breast- feeding.
[2018-08-02 14:07] LABS: Pathology Specimen OB SEE PATHOLOGY REPORT
[2018-08-02] MEDS: Naproxen 250 MG Tablet PO (17:12)
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
[2018-08-02] MEDS: FLUoxetine 20 MG Capsule 80 MG PO (21:39)
[2018-08-02] MEDS: buPROPion (XL) 150 MG TABLET.XL PO (21:39)
[2018-08-03] MEDS: Naproxen 250 MG Tablet PO (00:59)
[2018-08-03 01:45] VITALS: BP 117/62; PULSE 64; RESP 18; TEMP 36.9
[2018-08-03 09:15] VITALS: BP 116/90; PULSE 71; RESP 18; TEMP 37.1; O2SAT 97
--- NOTE | 2018-08-03 09:27 | PN.OBGYN_ITS ---
Subjective: Pain well controlled, average lochia. No nausea or vomiting. Tolerating regular diet. - Physical Exam General: Alert, Cooperative, No apparent distress Abdomen: Soft, Non-Distended, Tender - Separately Extremities: Edema Skin: Incision - Ended clean dry and intact Vital Signs Temp Pulse Resp BP Pulse Ox 98.4 F 64 18 117/62 96 08/03/18 01:45 08/03/18 01:45 08/03/18 01:45 08/03/18 01:45 08/02/18 21:31 Oxygen Delivery Method Room Air Weight: 75.3 kg Body Mass Index (BMI) 28.5 Medical Necessity - Tobacco Use Smoking Status: Never smoker Assessment/Plan All Active Problems (Last Updated 03/16/18 @ 04:29 by Maura Ding MD) Right lower quadrant abdominal pain (Acute) Ileus (Acute) 16 weeks gestation of (Acute) Nausea and vomiting (Acute) Postoperative day #4 status post primary section. Patient is doing well. She is working on breast-feeding. The 35-week is doing well in the special care nursery. Patient will be discharged to [facility] status today. Follow-up in 1 week or as needed. Spinal headache has resolved.
--- NOTE | 2018-08-03 09:32 | DCINST_ITS ---
Discharge Diet: No Restrictions Discharge Activity: Return to Normal Activity, May Not Drive - for 2 weeks, May not drive while taking narcotic pain medications., May Shower, May Take a Tub Bath - in 7 days. May resume sexual activity in: 4-6 weeks Lifting Restrictions: 20 pounds Additional Activity Instructions:: Nothing in the vagina for 4-6 weeks. You may return to work/school in 6 weeks. Call your doctor if your incision/area has: Continuous Slow Oozing, Sudden Increased Bleeding, Increased Pain/ Swelling, Increased Redness, Foul Smelling Discharge Call your doctor if you observe: Fever of 101 or Higher, Using more than one pad per hour - for 2 hours Suture Line Care: Avoid Pulling/Pushing, Avoid Pinching/Bending Cleanse incision/area with: Keep Dressing Clean & Dry Additional Instructions: If you experience any of the following, contact your healthcare provider. * Bleeding that soaks a pad every hour for 2 hours * Fever 100.4 or higher * Unrelieved incision or abdominal pain * Swelling, redness, discharge or bleeding from your incision or episiotomy site * Your incision begins to separate * Problems urinating (including inability to urinate or burning while urinating). * Visual changes * Severe headache * Flu-like symptoms * Pain or redness in one of both of your breasts * Pain, warmth, tenderness or swelling in your legs, especially the calf area * Frequent nausea and vomiting * Symptoms of depression or anxiety If you experience any of the following, call 911 or go to the nearest Emergency Room. * Chest pain * Problems breathing * Seizure activity * Partial or complete paralysis of a body part, slurred speech, weakness or drooping of the face, or a sudden inability to walk or hold your balance Allergies/Adverse Reactions: Allergies latex Allergy (Verified 05/31/18 00:25) Rash Medications to take at Discharge Fluoxetine HCl 80 mg PO QHS 03/15/18 [place]-3 Fatty Acids/Fish Oil [[place] 3 1,000 mg Softgel] 1 cap PO DAILY 03/16/18 No122/Iron/Folic Acid [ Multi Tablet] 1 tab PO QHS 03/16/18 SimETHICONE [Mylicon] 80 mg PO PCHS tablet 03/19/18 Omeprazole 1 tab PO DAILY 05/31/18 Acetaminophen [Tylenol] 500 mg PO Q4H PRN PRN 07/23/18 buPROPion SR [Wellbutrin SR (150mg tablets)] 150 mg PO QHS 07/30/18 Hydrocodone/Acetaminophen [[place] 5-325 Tablet] 1 - 2 ea PO Q8 PRN 5 Days #15 tab 08/03/18 Ibuprofen [Motrin] 600 mg PO Q6H PRN #60 tab 08/03/18 The following prescriptions were given: Hydrocodone/Acetaminophen [[place] 5-325 Tablet] 1 - 2 ea PO Q8 PRN 5 Days #15 tab PRN Reason: Pain Ibuprofen [Motrin] 600 mg PO Q6H PRN #60 tab PRN Reason: Pain Follow-Up: Call to make an appointment with your doctor for an incision check in 1-2 weeks. You will also need a 6 week post- follow up appointment. Test results from this visit will be discussed in further detail at your follow- up appointment, if applicable. Please Follow Up With: Delicia Ashford MD - Call to make an appointment for an incision check in 1-2 [phone] When: You will need a post check in 6 weeks. Primary Care Physician: Ashlie Erazo NP-C [Primary Care Provider] -
--- NOTE | 2018-08-03 09:32 | PCM.DC.SUM ---
Discharge Date and Diagnosis Date of Admission: 03/16/18 Date of Discharge: 08/03/18 Hospital Course and Treatment Operations: - - Primary low transverse section Via Pfannenstiel skin incision. 2 layer closure of lower uterine incision. Summary of Care Provided: The patient is a 23 year old 1 para 0 presented to labor and delivery at 35-3/7 weeks gestation for contractions and abdominal pain. Was noted that she was breech. Her abdomen was somewhat continuously tight and I was concerned about an abruption. I ordered labs and they were unremarkable. Her fibrinogen was in the upper normal range. However, her amnio sure came back positive for rupture of membranes. She had been complaining of some creased leaking of fluid. She had been given 1 dose of betamethasone upon arrival to labor and delivery. After rupture membranes was confirmed, I discussed with the patient recommendation to proceed with delivery and she agreed. The section was performed under spinal anesthetic without complication. 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 There was only one cervix. There is no septum appreciated. Both tubes and ovaries appeared normal. I performed a double layer closure of the uterine incision with #1 Vicryl suture. Postoperatively the patient did well. However, late on postoperative day #2 she began to complain of a headache that was determined to be a spinal headache. On the morning of postoperative day #3 anesthesia did a blood patch for her because conservative measures were not improving her headache to the point where she could function. On postoperative day #4, she was ambulating, urinating tolerating regular diet without difficulty. Her pain was well controlled with oral pain medications. She was discharged home with routine instructions and prescriptions and she is to follow-up in our office in 1-2 and 6 weeks or as needed. The infant was breast-feeding and doing well in the special care nursery. [] - Physical Exam Vital Signs Temp Pulse Resp BP Pulse Ox 98.4 F 64 18 117/62 96 08/03/18 01:45 08/03/18 01:45 08/03/18 01:45 08/03/18 01:45 08/02/18 21:31 Oxygen Delivery Method Room Air Weight: 75.3 kg Body Mass Index (BMI) 28.5 Discharge Diet: No Restrictions Discharge Activity: Return to Normal Activity, May Not Drive - for 2 weeks, May not drive while taking narcotic pain medications., May Shower, May Take a Tub Bath - in 7 days. May resume sexual activity in: 4-6 weeks Additional Activity Instructions:: Nothing in the vagina for 4-6 weeks. You may return to work/school in 6 weeks. Call your doctor if your incision/area has: Continuous Slow Oozing, Sudden Increased Bleeding, Increased Pain/ Swelling, Increased Redness, Foul Smelling Discharge Call your doctor if you observe: Fever of 101 or Higher, Using more than one pad per hour - for 2 hours Suture Line Care: Avoid Pulling/Pushing, Avoid Pinching/Bending Cleanse incision/area with: Keep Dressing Clean & Dry Home Medications: Medications to take at Discharge Fluoxetine HCl 80 mg PO QHS 03/15/18 [place]-3 Fatty Acids/Fish Oil [[place] 3 1,000 mg Softgel] 1 cap PO DAILY 03/16/18 No122/Iron/Folic Acid [ Multi Tablet] 1 tab PO QHS 03/16/18 SimETHICONE [Mylicon] 80 mg PO PCHS tablet 03/19/18 Omeprazole 1 tab PO DAILY 05/31/18 Acetaminophen [Tylenol] 500 mg PO Q4H PRN PRN 07/23/18 buPROPion SR [Wellbutrin SR (150mg tablets)] 150 mg PO QHS 07/30/18 Hydrocodone/Acetaminophen [[place] 5-325 Tablet] 1 - 2 ea PO Q8 PRN 5 Days #15 tab 08/03/18 Ibuprofen [Motrin] 600 mg PO Q6H PRN #60 tab 08/03/18 Following Prescrptions Were Given to Patient: Hydrocodone/Acetaminophen [[place] 5-325 Tablet] 1 - 2 ea PO Q8 PRN 5 Days #15 tab PRN Reason: Pain Ibuprofen [Motrin] 600 mg PO Q6H PRN #60 tab PRN Reason: Pain Primary Care Physician: Ashlie Erazo NP-C [Primary Care Provider] - Please Follow Up With: Delicia Ashford MD - Call to make an appointment for an incision check in 1-2 [phone] When: You will need a post check in 6 weeks. Medical Necessity - Tobacco Use Smoking Status: Never smoker Meaningful Use Info Meaningful Use Diagnoses (Choose all that apply): None applicable
[2018-08-03] MEDS: Docusate Sodium 100 MG Capsule PO (09:37)
--- NOTE | 2018-08-06 15:08 | CASEMGMT ---
Social Work Labor and Delivery Unit Spoke with patient/mother of baby on phone today as both mom and baby have been discharged from respective hospitals. Verified address and mailed community resource information, along with depression information and [facility] Behavioral health programming information in case needed down the road. [place] [facility] [place] via the [facility]'s secure web based referral form. -SUMAYA Fuentes, SECURITY ALARM INSTALLER
== END 2018-08-03 10:30 | disposition home or self-care (01) | DRG 786 ==
LOC: WPOUT 19:41
PROVIDERS: Admitting Provider Obstetrics & Gynecology; Family Provider Nurse Practitioner Family; PCP Nurse Practitioner Family; Referring Provider Obstetrics & Gynecology; Visit Provider Obstetrics & Gynecology
DX: O32.1XX0 Maternal care for breech presentation, not applicable or unspecified (principal); O60.14X0 Preterm labor third trimester with preterm delivery third trimester, not applicable or unspecified; O42.013 Preterm premature rupture of membranes, onset of labor within 24 hours of rupture, third trimester; O69.81X0 Labor and delivery complicated by cord around neck, without compression, not applicable or unspecified; O99.344 Other mental disorders complicating childbirth; F32.9 Major depressive disorder, single episode, unspecified; O34.03 Maternal care for unspecified congenital malformation of uterus, third trimester; Q51.4 Unicornate uterus; Z3A.35 35 weeks gestation of pregnancy; Z37.0 Single live birth; O89.4 Spinal and epidural anesthesia-induced headache during the puerperium; K90.0 Celiac disease; O75.89 Other specified complications of labor and delivery
CPT/HCPCS: 36415; 59025; 59050; 80307; 84112; 85025; 85027; 85384; 85610; 85730; 86850; 86900; 87653; 88307; 96372; 99218; J7120; A4216; G0378; J0702; J2405

== ENCOUNTER 2019-12-19 16:13 | Emergency (ER) | payer OTHER, SELFPAY ==
[2018-07-30 17:27] VITALS: BMI 28.5
[2019-12-19 16:14] VITALS: BP 127/84; PULSE 73; RESP 15; TEMP 36.8; O2SAT 97; BMI 25.7
[2019-12-19 18:16] LABS: Absolute Lymphocyte Count 4.16 X10^3/uL (0.83-4.51); Absolute Neutrophil Count 2.8 X10^3/uL (2.0-7.7); Basophil# 0.05 X10^3/uL; Basophil% 0.6 % (0-1); Eosinophil# 0.13 X10^3/uL; Eosinophils% 1.7 % (0-5); Hematocrit 44.8 % (37-47); Hemoglobin 14.2 g/dL (12.0-15.0); Lymphocyte # 4.16 X10^3/ul (4.0); Lymphocyte % 52.9 % (19-41); Mean Corp Hgb Conc 31.7 g/dL (32-36); Mean Corpuscular Hgb 31.1 pg (27.0-32.0); Mean Platelet Vol. 10.9 fl (6.2-12.0); Monocyte# 0.66 X10^3/uL; Monocyte% 8.4 % (0-10); NRBC Flagged by Analyzer 0 % (0-5); Neutrophil # 2.84 X10^3/uL (2.7-7.7); Platelet Count 363 K/mm3 (150-450); RBC Distribution Width CV 12.9 % (11.6-14.6); RBC Distribution Width SD 46.5 fl (35.1-43.9); Red Blood Count 4.57 M/mm3 (4.2-5.4); White Blood Count 7.9 K/mm3 (4.4-11.0)
[2019-12-19] MEDS: 0.9% Normal Saline 1,000 ML 1000 ML IV (18:27)
[2019-12-19] MEDS: Ondansetron 4 MG/2 ML Vial IV (18:28)
[2019-12-19 18:29] LABS: Internal QC Validated? YES +Cl - CLEAR BKGD; Pregnancy, Serum, hCG Quali. NEGATIVE Negative
--- NOTE | 2019-12-19 18:30 | RAD_ITS ---
STUDY: X-RAY CHEST REASON FOR EXAM: Female, 24 years old. ABDOMINAL PAIN TECHNIQUE: Portable chest COMPARISON: 10/16/2013 FINDINGS: The lungs are clear and expanded. There is no demonstrated pleural abnormality. There is no change. Normal size heart. Normal mediastinum and jolie. Normal visualized pulmonary arteries. Normal visualized aortic arch and descending thoracic aorta. Normal visualized thoracic spine. Normal visualized ribs, clavicles, and shoulders. There is no demonstrated abnormality of the visualized soft tissue structures of the upper abdomen. RAD/Chest 1 View (Portable) IMPRESSION: Normal x-ray examination of the chest. Electronically Signed: Floyd Mcgill, at 19:10 EDT Tel , Service support ,
[2019-12-19 19:06] LABS: ALB/GLOB Ratio 0.9 RATIO (0.9-2.4); AST(SGOT) 17 U/L (15-37); Alanine Aminotransfer ALT/SGPT 18 U/L (13-56); Albumin, Serum 3.6 g/dL (3.2-5.0); Alkaline Phosphatase 85 U/L (45-117); Anion Gap 5 (5-15); BUN 11 mg/dL (7-18); BUN/Creat Ratio 14.5 RATIO (10-20); Calcium,Total 8.9 mg/dL (8.5-10.1); Chloride 108 mmol/L (98-107); Creatinine, Serum 0.76 mg/dL (0.55-1.02); EST Glomerular Filtration Rate 100 mL/min (>60); Est Glom Filt Rate - Afr Amer 121 mL/min (>60); Estimated Creatinine Clearance 99.41 ml/min; Globulin 3.9 g/dL (2.2-4.2); Glucose 91 mg/dL (74-106); Potassium 4.4 mmol/L (3.5-5.1); Protein, Total 7.5 g/dL (6.4-8.2); Sodium Level 140 mmol/L (136-145)
[2019-12-19] MEDS: Acetaminophen 500 MG Tablet 1000 MG PO (19:46)
[2019-12-19 19:49] VITALS: BP 115/79; PULSE 61; RESP 18; O2SAT 100
[2019-12-19 20:03] LABS: Mucous, Urine 0 SEEN /hpf (<or=2+)
[2019-12-19 20:05] LABS: Color, Urine Yellow (Yellow); Glucose, Dipstick Normal (Normal); Ketone-Dipstick Negative (Negative); Leukocyte Esterase-Dipstick 25 /ul (Negative); Nitrite-Dipstick Negative (Negative); Occult Blood-Urine Negative /ul (Negative); Protein-Dipstick Negative (Negative); Urine Bilirubin Dipstick Negative (Negative); Urine Clarity Sl. Cloudy (Clear); Urine Urobilinogen Normal (Normal)
[2019-12-19 20:29] LABS: Squamous Epithelial Cells - UA 0-5 SEEN /hpf (5-10)
[2019-12-19 20:31] LABS: Bacteria 1+ /hpf (None Seen); Red Blood Cells-Urine 0-5 SEEN /hpf (0-5); White Blood Cells 0-5 SEEN /hpf (0-5)
--- NOTE | 2019-12-19 21:04 | ED.VISSUMM ---
- ER Visit Summary Date of Service: 12/19/19 Chief Complaint: Flulike symptoms History of Present Illness: The patient is a 24 F who presents with flulike symptoms for the past 2 days. Patient states she has had some nausea and body aches for the past 2 days. Patient states her aching is generalized. Patient also admits to some sharp pain over her lower abdomen. Patient states nothing makes it better or worse. Patient admits to some generalized weakness and a mild headache. Patient states that she has felt this way in the past when she was . Patient is also concerned over possible COVID. Physical Examination: Vital signs are stable. Patient is afebrile. Patient is in no acute distress. Oral mucosa is pink and moist. Neck is supple. Trachea is midline. There is no JVD noted. Heart was regular rate and rhythm. Lungs are clear and equal bilaterally. Abdomen is soft. Bowel sounds are normal. There is no tenderness. There is no rebound or guarding noted. Skin is warm dry. Cranial nerves II through XII are intact. There are no focal motor or sensory deficits noted. Extremities are intact. There is no calf tenderness or edema. Test Results: CBC and comprehensive metabolic profile were within normal limits. Urinalysis does not show any evidence of urinary tract infection. hCG was negative. COVID swab was obtained and is pending. This was sent out. Emergency Department Course and Treatment: Patient was advised of her results. Patient was advised that her COVID swab may take 3 to 5 days. Patient was given a note for work for 3 to 5 days. Patient was instructed to quarantine herself for the next 3 to 5 days until her test results come back. Patient was instructed to follow-up with her primary care physician for test results. Patient understood and was agreeable with the plan. All questions were answered. Disposition: Discharge home Impression: Viral illness This note was generated with Mylaation software. It may contain incorrect words, spelling, and punctuation that were not noted in review of the chart prior to signing ED Disposition - Plan for ED Patient: Disposition: Home or Assisted Living Diagnosis: Viral illness Instructions: ED Viral Syndrome Referrals: Ashlie Erazo, SYLVIAC [Primary Care Provider] - 5-7 Days
[2019-12-19 21:25] VITALS: BP 120/78; PULSE 75; RESP 18; O2SAT 100
== END 2019-12-19 21:26 | disposition home or self-care (01) ==
PROVIDERS: Emergency Provider Emergency Medicine; PCP Nurse Practitioner Family
DX: B34.9 Viral infection, unspecified (principal); R53.1 Weakness; R51 Headache; R11.0 Nausea; Z90.49 Acquired absence of other specified parts of digestive tract; F32.9 Major depressive disorder, single episode, unspecified; F41.9 Anxiety disorder, unspecified
CPT/HCPCS: 71045; 80053; 81001; 84703; 85025; 87635; 96361; 96374; 99284; G2023; J7030; A4216; J2405; U0003

== ENCOUNTER 2022-01-09 18:26 | Outpatient (CLI) | payer OTHER, MEDICAID, SELFPAY ==
[2022-01-09 18:37] VITALS: BP 120/69; PULSE 70
[2022-01-09 18:46] VITALS: BMI 30.2
[2022-01-09 19:10] LABS: Red Blood Cells-Urine 0 SEEN /hpf (0-5); White Blood Cells 0 SEEN /hpf (0-5)
[2022-01-09 19:38] LABS: ROM Internal Control Test YES-OK TO RESULT pt. (Internal QC); ROM Patient Test Negative (Negative)
[2022-01-09 19:44] LABS: Color, Urine Straw (Yellow); Glucose, Dipstick Normal (Normal); Ketone-Dipstick Negative (Negative); Leukocyte Esterase-Dipstick 25 /ul (Negative); Nitrite-Dipstick Negative (Negative); Occult Blood-Urine Negative /ul (Negative); Protein-Dipstick 15 mg/dl (Negative); Specific Gravity, Urine 1.015 (1.002-1.030); Urine Bilirubin Dipstick Negative (Negative); Urine Clarity Clear (Clear); Urine Urobilinogen Normal (Normal)
[2022-01-09 19:53] LABS: Bacteria 1+ /hpf (None Seen); Mucous, Urine 1+ /hpf (<or=2+); Squamous Epithelial Cells - UA 0-5 SEEN /hpf (5-10)
--- NOTE | 2022-01-18 12:42 | OB.TRI.NOTE ---
HPI - General General Date of Admission: 01/09/22 Date of Service: 01/09/22 Chief Complaint: LOF HPI Narrative ANTONETTE ARMSTRONG, is a 26 F who presents with possible LOF. Underwear have been more wet. No vb, ctxs. Good FM. PFSH PFSH Home Medications PNV 153-FA 400 mcg-om3 35 mg-dha 25 mg-epa 5 mg-fish oil chew tablet ( Gummies) 1 tab PO DAILY 01/09/22 [History Last Taken 01/08/22 09:00 1 gummi] progesterone micronized 200 mg capsule (Prometrium) 200 mg QHS 01/09/22 [History Last Taken 01/08/22 22:00 200 mg] Allergy/AdvReac Type Severity Reaction Status Date / Time latex Allergy Rash Verified 01/09/22 18:43 Family History (Updated 03/16/18 @ 04:[address] Maura Ko MD) Mother Endometrial cancer Surgical History (Updated 07/30/18 @ 21:[address] Delicia Ashofrd MD) H/O shoulder surgery History of tonsillectomy and adenoidectomy S/P cholecystectomy Social History Smoking Status: Never smoker History Elective abortions Hx Para 0 Spontaneous abortions Hx # Term Pregnancies Ectopic pregnancies Hx # Pregnancies Multiple births # of living children NST FHR Rate Baby A Baseline: 120 Variability:: Moderate Accelerations:: 15 x 15 Decelerations:: None NST Reactive:: Yes Uterine Activity:: no regular ctx's Assessment & Plan (1) 32 weeks gestation of : PLAN: FHT reactive and reassuring No regular ctx's Discharge home with f/u in office (2) Vaginal discharge: PLAN: ROM was negative
== END 2022-01-09 20:23 | disposition home or self-care (01) ==
LOC: WPOUT 18:32 → WP 18:33
PROVIDERS: PCP Nurse Practitioner Family; Visit Provider Obstetrics & Gynecology
DX: O99.891 Other specified diseases and conditions complicating pregnancy (principal); N89.8 Other specified noninflammatory disorders of vagina; Z3A.32 32 weeks gestation of pregnancy
CPT/HCPCS: 59025; 59050; 81001; 84112; 99218; G0378

== ENCOUNTER 2022-01-30 17:43 | Outpatient (CLI) | payer OTHER, SELFPAY ==
[2022-01-30 17:53] VITALS: BP 119/87; PULSE 92
[2022-01-30 17:54] VITALS: PULSE 79; TEMP 37.4; O2SAT 99
[2022-01-30 17:57] VITALS: BMI 31.0
[2022-01-30 19:13] VITALS: BP 128/88; PULSE 74; TEMP 37.2
[2022-01-30 20:25] LABS: Color, Urine Yellow (Yellow); Glucose, Dipstick Normal (Normal); Ketone-Dipstick Negative (Negative); Leukocyte Esterase-Dipstick 500 /ul (Negative); Nitrite-Dipstick Negative (Negative); Occult Blood-Urine 10 /ul (Negative); Protein-Dipstick 15 mg/dl (Negative); Urine Bilirubin Dipstick Negative (Negative); Urine Clarity Sl. Cloudy (Clear); Urine Urobilinogen Normal (Normal)
[2022-01-30] MEDS: Betamethasone/Betamethasone 30 MG/5 ML Vial 12 MG IM (20:31)
[2022-01-30 20:55] LABS: Bacteria 3+ /hpf (None Seen); Mucous, Urine 2+ /hpf (<or=2+); Red Blood Cells-Urine 0-5 SEEN /hpf (0-5); Squamous Epithelial Cells - UA 10-25 SEEN /hpf (5-10); White Blood Cells 10-25 SEEN /hpf (0-5)
[2022-01-30] MEDS: Lactated Ringers 1,000 ML 999 ML IV (21:15)
[2022-01-30] MEDS: Nitrofurantoin Macrocrystals 100 MG Capsule PO (21:26)
[2022-01-30 22:11] LABS: ROM Internal Control Test YES-OK TO RESULT pt. (Internal QC)
[2022-01-30 22:12] LABS: ROM Patient Test Negative (Negative)
--- NOTE | 2022-01-30 22:43 | OB.TRI.HP_ITS ---
Documented by User: Dr. Rosalva Munoz MD 01/31/22 09:06 HPI - General General Date of Service: 01/31/22 Chief Complaint: contraction HPI Narrative ANTONETTE ARMSTRONG, is a 26 F who presents with contractions. PFSH PFSH Medical History (Updated 01/31/22 @ 09:[address] Rosalva Munoz MD) Anxiety Depression depression contractions Uterine anomaly Home Medications PNV 153-FA 400 mcg-om3 35 mg-dha 25 mg-epa 5 mg-fish oil chew tablet ( Gummies) 1 tab PO DAILY 01/09/22 [History Last Taken 01/08/22 09:00 1 gummi] progesterone micronized 200 mg capsule (Prometrium) 200 mg QHS 01/09/22 [History Last Taken 01/08/22 22:00 200 mg] Allergy/AdvReac Type Severity Reaction Status Date / Time latex Allergy Rash Verified 01/30/22 19:19 Family History (Updated 03/16/18 @ 04:[address] Maura Ko MD) Mother Endometrial cancer Surgical History (Updated 01/30/22 @ 19:38 by Karen Hamilton) H/O shoulder surgery History of surgery History of tonsillectomy and adenoidectomy Previous section S/P cholecystectomy Social History Smoking Status: Never smoker History Elective abortions Hx Para 1 Spontaneous abortions Hx # Term Pregnancies Ectopic pregnancies Hx # Pregnancies Multiple births # of living children Physical Exam Const alert, oriented x3 and no apparent distress General Appearance: cooperative and comfortable Chest inspection of chest normal GI soft to palpation, non-tender and non-distended Inspection: gravid external exam normal Narrative: cvx - cl/20/-3, firm NST FHR Rate Baby A Baseline: 120 Variability:: Moderate Accelerations:: 15 x 15 Decelerations:: Variable NST Reactive:: Yes Uterine Activity:: Irregular Assessment & Plan (1) contractions: COMMENT: @ 35&3 PLAN: Patient monitored overnight & no evidence of PTL Completing BMZ course COntinue macrobid for UTI Reviewed PTL & FM precautions Documented by User: Michelle Silva CNM HPI - General HPI Narrative ANTONETTE ARMSTRONG, is a 26 F who presents [facility] Medical History (Updated 01/31/22 @ 09:[address] Rosalva Munoz MD) Anxiety Depression depression contractions Uterine anomaly Home Medications PNV 153-FA 400 mcg-om3 35 mg-dha 25 mg-epa 5 mg-fish oil chew tablet ( Gummies) 1 tab PO DAILY 01/09/22 [History Last Taken 01/08/22 09:00 1 gummi] progesterone micronized 200 mg capsule (Prometrium) 200 mg QHS 01/09/22 [History Last Taken 01/08/22 22:00 200 mg] Allergy/AdvReac Type Severity Reaction Status Date / Time latex Allergy Rash Verified 01/30/22 19:19 Family History (Updated 03/16/18 @ 04:[address] Maura Ko MD) Mother Endometrial cancer Surgical History (Updated 01/30/22 @ 19:38 by Karen Hamilton) H/O shoulder surgery History of surgery History of tonsillectomy and adenoidectomy Previous section S/P cholecystectomy Social History Smoking Status: Never smoker History Elective abortions Hx Para 1 Spontaneous abortions Hx # Term Pregnancies Ectopic pregnancies Hx # Pregnancies Multiple births # of living children Assessment & Plan (1) contractions: COMMENT: @ 35&3
[2022-01-30 23:09] VITALS: BP 110/74; PULSE 77; TEMP 36.9; O2SAT 99
[2022-01-30] MEDS: NIFEdipine 30 MG Tablet PO (23:15)
[2022-01-30] MEDS: Acetaminophen 500 MG Tablet 1000 MG PO (23:15)
[2022-01-31] MEDS: Zolpidem Tartrate 5 MG Tablet PO (00:17)
[2022-01-31 02:39] VITALS: BP 114/60; PULSE 80; TEMP 37; O2SAT 97
[2022-01-31 07:21] VITALS: BP 116/64; PULSE 83; PULSE 92; O2SAT 97
[2022-01-31] MEDS: Nitrofurantoin Macrocrystals 100 MG Capsule PO (09:05)
== END 2022-01-31 09:10 | disposition home or self-care (01) ==
LOC: WPOUT 17:48 → WP 17:48
PROVIDERS: PCP Nurse Practitioner Family; Visit Provider Advanced Practice Midwife
DX: O23.43 Unspecified infection of urinary tract in pregnancy, third trimester (principal); Z3A.35 35 weeks gestation of pregnancy
CPT/HCPCS: 96360; 59025; 59050; 81001; 84112; 87086; 96372; 99218; J7120; G0378; J0702

== ENCOUNTER 2022-01-31 18:30 | Outpatient (CLI) | payer OTHER, SELFPAY ==
[2022-01-31] MEDS: Betamethasone/Betamethasone 30 MG/5 ML Vial 12 MG IM (18:56)
== END 2022-01-31 19:16 | disposition home or self-care (01) ==
LOC: WPOUT 18:34 → WP 18:35
PROVIDERS: PCP Nurse Practitioner Family; Visit Provider Obstetrics & Gynecology
DX: O23.43 Unspecified infection of urinary tract in pregnancy, third trimester (principal); Z3A.35 35 weeks gestation of pregnancy
CPT/HCPCS: 96372; 99218; G0378; J0702

== ENCOUNTER 2022-02-03 17:20 | Outpatient (CLI) | payer OTHER, SELFPAY ==
[2022-02-03 17:25] VITALS: PULSE 80; O2SAT 99
[2022-02-03 17:26] VITALS: PULSE 75; TEMP 36.6; O2SAT 99
[2022-02-03 17:30] VITALS: PULSE 75; O2SAT 99
[2022-02-03 17:34] VITALS: BMI 30.9
[2022-02-03 18:12] LABS: ROM Internal Control Test YES-OK TO RESULT pt. (Internal QC); ROM Patient Test Negative (Negative)
[2022-02-03] MEDS: Lactated Ringers 1,000 ML 999 ML IV (18:15)
--- NOTE | 2022-03-02 16:36 | OB.TRI.HP_ITS ---
HPI - General General Date of Service: 02/03/22 HPI Narrative ANTONETTE ARMSTRONG, is a 27 F who presents [facility] Medical History (Updated 03/02/22 @ 16:[address] Rosalva Munoz MD) Anxiety Breech presentation Depression History of pre-term labor Ileus Non-reassuring status depression Uterine anomaly Home Medications PNV 153-FA 400 mcg-om3 35 mg-dha 25 mg-epa 5 mg-fish oil chew tablet ( Gummies) 1 tab PO DAILY 01/09/22 [History Last Taken 01/08/22 09:00 1 gummi] nitrofurantoin monohydrate/macrocrystals 100 mg capsule (Macrobid) 100 mg PO BID uti 02/05/22 [History Last Taken 02/04/22] ibuprofen 600 mg tablet 600 mg PO Q6H PRN Pain #60 TABLETS 02/07/22 [Rx Last Taken Unknown] oxycodone 5 mg tablet 5 mg PO Q6H PRN pain 7 days #28 TABLETS 02/07/22 [Rx Last Taken Unknown] Allergy/AdvReac Type Severity Reaction Status Date / Time latex Allergy Rash Verified 02/05/22 03:38 Family History Mother Endometrial cancer Surgical History (Updated 02/08/22 @ 00:02 by Background Erika) deliv NOS-unsp H/O shoulder surgery History of surgery History of tonsillectomy and adenoidectomy Previous delivery affecting Previous section S/P cholecystectomy Social History Smoking Status: Never smoker History Elective abortions Hx Para 1 Spontaneous abortions Hx # Term Pregnancies Ectopic pregnancies Hx # Pregnancies Multiple births # of living children Assessment & Plan (1) False labor: PLAN: Reactive NST for false labor
== END 2022-02-03 19:45 | disposition home or self-care (01) ==
LOC: WPOUT 17:23 → WP 17:24
PROVIDERS: PCP Nurse Practitioner Family; Referring Provider Obstetrics & Gynecology; Visit Provider Obstetrics & Gynecology
DX: O47.9 False labor, unspecified (principal); Z3A.00 Weeks of gestation of pregnancy not specified
CPT/HCPCS: 96360; 96361; 59025; 59050; 84112; 99218; G0378

== ENCOUNTER 2022-02-05 05:25 | Inpatient (IN) | payer OTHER, MEDICAID, SELFPAY ==
[2022-02-05] VITALS (50 sets, daily range): BP systolic 98–122; BP diastolic 48–77; PULSE 56–94; RESP 13–18; TEMP 36.2–37.4; O2SAT 95–100; BMI 31.0
[2022-02-05 03:35] LABS: Absolute Lymphocyte Count 3.94 X10^3/uL (0.83-4.51); Absolute Neutrophil Count 10.3 X10^3/uL (2.0-7.7); Basophil# 0.06 X10^3/uL; Basophil% 0.4 % (0-1); Eosinophil# 0.13 X10^3/uL; Eosinophils% 0.8 % (0-5); Hematocrit 38.2 % (37-47); Hemoglobin 12.7 g/dL (12.0-15.0); Lymphocyte # 3.94 X10^3/ul (0.83-4.51); Lymphocyte % 24.7 % (19-41); Mean Corp Hgb Conc 33.2 g/dL (32-36); Mean Corpuscular Hgb 32.7 pg (27.0-32.0); Mean Corpuscular Volume 98.5 fL (81-99); Mean Platelet Vol. 11.7 fl (6.2-12.0); Monocyte% 8.8 % (0-10); NRBC Flagged by Analyzer 0 % (0-5); Neutrophil # 10.25 X10^3/uL (2.7-7.7); Platelet Count 268 K/mm3 (150-450); RBC Distribution Width CV 12.4 % (11.6-14.6); RBC Distribution Width SD 44.8 fl (35.1-43.9); Red Blood Count 3.88 M/mm3 (4.2-5.4)
[2022-02-05 03:47] LABS: ROM Internal Control Test YES-OK TO RESULT pt. (Internal QC); ROM Patient Test Negative (Negative)
[2022-02-05] MEDS: Lactated Ringers 1,000 ML 999 ML IV (03:58)
[2022-02-05] MEDS: Sodium Citrate/Citric Acid 30 ML UDC PO (05:48)
[2022-02-05] MEDS: Acetaminophen 500 MG Tablet 1000 MG PO ×4 (05:48→23:55)
--- NOTE | 2022-02-05 05:55 | PCM.HP.OB ---
HPI - General General Date of Admission: 02/05/22 Date of Service: 02/05/22 HPI Narrative ANTONETTE ARMSTRONG, is a 26 F who presents with contractions. Maternal Data Information Final KENNEDI: [birth year] Gestational age: 36&1 PFSH [facility] Medical History (Updated 02/05/22 @ 06:[address] Rosalva Munoz MD) Anxiety Breech presentation Depression History of pre-term labor Non-reassuring status depression contractions Uterine anomaly Home Medications PNV 153-FA 400 mcg-om3 35 mg-dha 25 mg-epa 5 mg-fish oil chew tablet ( Gummies) 1 tab PO DAILY 01/09/22 [History Last Taken 01/08/22 09:00 1 gummi] progesterone micronized 200 mg capsule (Prometrium) 200 mg QHS 01/09/22 [History Last Taken 01/08/22 22:00 200 mg] nitrofurantoin monohydrate/macrocrystals 100 mg capsule (Macrobid) 100 mg PO BID uti 02/05/22 [History Last Taken 02/04/22] Allergy/AdvReac Type Severity Reaction Status Date / Time latex Allergy Rash Verified 02/05/22 03:38 Family History Mother Endometrial cancer Surgical History (Updated 02/05/22 @ 06:[address] Rosalva Munoz MD) H/O shoulder surgery History of surgery History of tonsillectomy and adenoidectomy Previous delivery affecting Previous section S/P cholecystectomy Social History Smoking Status: Never smoker History Elective abortions Hx Para 1 Spontaneous abortions Hx # Term Pregnancies Ectopic pregnancies Hx # Pregnancies Multiple births # of living children NST FHR Rate Baby A Baseline: 135 Variability:: Moderate Accelerations:: 15 x 15 Decelerations:: Variable (severe & persistent) Uterine Activity:: Irregular Vital Signs Vital Signs Vital Signs: 02/05/22 02:42 02/05/22 02:42 02/05/22 02:43 Temperature Temperature Source Pulse Rate 70 Respiratory Rate Blood Pressure 112/77 Blood Pressure Mean BP Systolic 112 BP Diastolic 77 Blood Pressure Source Blood Pressure Position Blood Pressure Location Pulse Ox 97 Oxygen Delivery Method 02/05/22 02:43 08/21/22 03:11 02/05/22 03:11 Temperature Temperature Source Pulse Rate 71 72 Respiratory Rate Blood Pressure Blood Pressure Mean BP Systolic BP Diastolic Blood Pressure Source Blood Pressure Position Blood Pressure Location Pulse Ox 96 Oxygen Delivery Method 02/05/22 03:16 02/05/22 03:16 02/05/22 03:21 Temperature Temperature Source Pulse Rate 66 65 Respiratory Rate Blood Pressure Blood Pressure Mean BP Systolic BP Diastolic Blood Pressure Source Blood Pressure Position Blood Pressure Location Pulse Ox 96 Oxygen Delivery Method 02/05/22 03:21 02/05/22 03:26 02/05/22 03:26 Temperature Temperature Source Pulse Rate 65 Respiratory Rate Blood Pressure Blood Pressure Mean BP Systolic BP Diastolic Blood Pressure Source Blood Pressure Position Blood Pressure Location Pulse Ox 95 96 Oxygen Delivery Method 02/05/22 03:31 02/05/22 03:31 02/05/22 03:32 Temperature Temperature Source Temporal Pulse Rate 65 Respiratory Rate Blood Pressure Blood Pressure Mean BP Systolic BP Diastolic Blood Pressure Source Blood Pressure Position Blood Pressure Location Pulse Ox 96 Oxygen Delivery Method 02/05/22 03:32 02/05/22 03:36 02/05/22 03:36 Temperature 98.6 F Temperature Source Pulse Rate 61 Respiratory Rate Blood Pressure Blood Pressure Mean BP Systolic BP Diastolic Blood Pressure Source Blood Pressure Position Blood Pressure Location Pulse Ox 96 Oxygen Delivery Method 02/05/22 03:41 02/05/22 03:41 02/05/22 03:46 Temperature Temperature Source Pulse Rate 69 65 Respiratory Rate Blood Pressure Blood Pressure Mean BP Systolic BP Diastolic Blood Pressure Source Blood Pressure Position Blood Pressure Location Pulse Ox 96 Oxygen Delivery Method 02/05/22 03:46 02/05/22 03:51 02/05/22 03:51 Temperature Temperature Source Pulse Rate 72 Respiratory Rate Blood Pressure Blood Pressure Mean BP Systolic BP Diastolic Blood Pressure Source Blood Pressure Position Blood Pressure Location Pulse Ox 97 97 Oxygen Delivery Method 02/05/22 03:56 02/05/22 03:56 02/05/22 04:01 Temperature Temperature Source Pulse Rate 70 65 Respiratory Rate Blood Pressure Blood Pressure Mean BP Systolic BP Diastolic Blood Pressure Source Blood Pressure Position Blood Pressure Location Pulse Ox 97 Oxygen Delivery Method 02/05/22 04:01 02/05/22 04:06 02/05/22 04:06 Temperature Temperature Source Pulse Rate 63 Respiratory Rate Blood Pressure Blood Pressure Mean BP Systolic BP Diastolic Blood Pressure Source Blood Pressure Position Blood Pressure Location Pulse Ox 96 97 Oxygen Delivery Method 02/05/22 04:11 02/05/22 04:11 02/05/22 04:16 Temperature Temperature Source Pulse Rate 66 Respiratory Rate Blood Pressure Blood Pressure Mean BP Systolic BP Diastolic Blood Pressure Source Blood Pressure Position Blood Pressure Location Pulse Ox 97 97 Oxygen Delivery Method 02/05/22 04:16 02/05/22 04:35 02/05/22 04:35 Temperature Temperature Source Pulse Rate 61 62 Respiratory Rate Blood Pressure Blood Pressure Mean BP Systolic BP Diastolic Blood Pressure Source Blood Pressure Position Blood Pressure Location Pulse Ox 98 Oxygen Delivery Method 02/05/22 04:40 02/05/22 04:40 02/05/22 04:45 Temperature Temperature Source Pulse Rate 74 68 Respiratory Rate Blood Pressure Blood Pressure Mean BP Systolic BP Diastolic Blood Pressure Source Blood Pressure Position Blood Pressure Location Pulse Ox 99 Oxygen Delivery Method 02/05/22 04:45 02/05/22 04:50 02/05/22 04:50 Temperature Temperature Source Pulse Rate 73 Respiratory Rate Blood Pressure Blood Pressure Mean BP Systolic BP Diastolic Blood Pressure Source Blood Pressure Position Blood Pressure Location Pulse Ox 99 98 Oxygen Delivery Method 02/05/22 04:55 02/05/22 04:55 02/05/22 05:00 Temperature Temperature Source Pulse Rate 60 65 Respiratory Rate Blood Pressure Blood Pressure Mean BP Systolic BP Diastolic Blood Pressure Source Blood Pressure Position Blood Pressure Location Pulse Ox 97 Oxygen Delivery Method 02/05/22 05:00 02/05/22 05:06 02/05/22 05:06 Temperature Temperature Source Pulse Rate 64 Respiratory Rate Blood Pressure Blood Pressure Mean BP Systolic BP Diastolic Blood Pressure Source Blood Pressure Position Blood Pressure Location Pulse Ox 97 97 Oxygen Delivery Method 02/05/22 05:11 02/05/22 05:11 02/05/22 05:22 Temperature Temperature Source Pulse Rate 74 Respiratory Rate Blood Pressure 117/66 Blood Pressure Mean BP Systolic 117 BP Diastolic 66 Blood Pressure Source Blood Pressure Position Blood Pressure Location Pulse Ox 96 Oxygen Delivery Method 02/05/22 05:22 02/05/22 05:23 02/05/22 05:23 Temperature Temperature Source Pulse Rate 56 L 70 Respiratory Rate Blood Pressure Blood Pressure Mean BP Systolic BP Diastolic Blood Pressure Source Blood Pressure Position Blood Pressure Location Pulse Ox 98 Oxygen Delivery Method 02/05/22 05:28 02/05/22 05:28 02/05/22 05:33 Temperature Temperature Source Pulse Rate 67 61 Respiratory Rate Blood Pressure Blood Pressure Mean BP Systolic BP Diastolic Blood Pressure Source Blood Pressure Position Blood Pressure Location Pulse Ox 99 Oxygen Delivery Method 02/05/22 05:33 02/05/22 05:38 02/05/22 05:38 Temperature Temperature Source Pulse Rate 66 Respiratory Rate Blood Pressure Blood Pressure Mean BP Systolic BP Diastolic Blood Pressure Source Blood Pressure Position Blood Pressure Location Pulse Ox 99 99 Oxygen Delivery Method 02/05/22 05:43 02/05/22 05:43 02/05/22 05:48 Temperature Temperature Source Pulse Rate 65 64 Respiratory Rate Blood Pressure Blood Pressure Mean BP Systolic BP Diastolic Blood Pressure Source Blood Pressure Position Blood Pressure Location Pulse Ox 98 Oxygen Delivery Method 02/05/22 05:48 02/05/22 05:21 Temperature 98.2 F Temperature Source Temporal Pulse Rate 56 L Respiratory Rate 16 Blood Pressure 117/66 Blood Pressure Mean 83 BP Systolic BP Diastolic Blood Pressure Source Monitor Blood Pressure Position Semi-Fowlers Blood Pressure Location Left Arm Pulse Ox 99 97 Oxygen Delivery Method Room Air Weight Weight: 181 lb Body Mass Index (BMI) 31.0 Physical Exam Const alert and oriented x3 Chest inspection of chest normal Resp normal respiratory effort GI soft to palpation, non-tender and non-distended Inspection: gravid Labs Labs Labs: Blood Type O POSITIVE Antibody Screen NEGATIVE Hct 38.2 % (37-47) Hgb 12.7 g/dL (12.0-15.0) Rubella IgG Antibody 103.7 IU/mL Hep Bs Antigen Negative (Negative) Chlamydia DNA (LESA) Negative (Negative) Neisseria gonorrhoeae DNA (LESA) Negative (Negative) HIV 1&2 Antibody Non-Reactive (Nonreactive) Group B Strep DNA POSITIVE (Negative) H Rhogam given: No See [facility] H&P Assessment & Plan (1) Breech presentation: COMMENT: Patient with known left unicornuate uterus (2) Previous delivery affecting : (3) Non-reassuring status: COMMENT: @ 36&1 PLAN: Admit to L&D Plan for delivery for persistent severe variables on EFM after all possible other interventions attempted. MOD - repeat . patient counseled on R/B/A and informed consent signed. Covid negative Routine PP care
[2022-02-05] MEDS: Cefazolin 2 GM in 0.9% Normal Saline 100 ML IV (06:01)
--- NOTE | 2022-02-05 06:09 | EX.PCM.OBRPT ---
Maternal Data Information Final KENNEDI: [birth year] Gestational age: 36&1 Details Operative Information Date of Procedure: 02/05/22 Pre-Operative Diagnosis: (1) Prior section (2) Breech presentation (3) Non reassuring heart tracing Post-Operative Diagnosis: Same Indications for : Repeat Elective , Breech and Nonreassuring Status Indications Narrative: The patient was taken to the operating room where spinal anesthesia was placed & found to be adequate. She was prepped and draped in the dorsal supine position with a leftward tilt. A Pfannenstiel skin incision was made approximately 2 cm above the symphysis pubis and carried through to the underlying fascia with the scalpel. The fascia was incised incised in the midline and extended laterally with the Atkins scissors. The rectus muscles were in the midline and the peritoneum was entered carefully and bluntly. The peritoneal incision was stretched and the bladder blade was inserted. Vesicouterine peritoneum was tented up, incised & then bladder flap created gently. The uterine incision was made in a low transverse fashion with the scalpel and extended superiorly and inferiorly with blunt dissection. The 's feet were grasped and the was delivered gently with typical breech maneuvers. The 3VC cord was clamped and cut. The infant was handed off to the waiting community support specialist. The placenta was delivered with fundal massage and gentle traction in the standard fashion. The uterus was exteriorized and cleared of clots and debris. The uterine incision was closed with #1 Vicryl suture in a running locked fashion. Monocryl suture was used in an imbricating fashion. The incision was examined and was found to be hemostatic after placing 1 additional suture on the right side of the uterine incision. The uterus was returned to the abdominal cavity. After irrigating Kevin was placed over the uterine incision as some areas were denuded (but hemostatic). The rectus muscle was examined and any bleeding was Bovie cauterized. Muscle was reapproximated with 1 figure of eight suture of vicryl inferiorly. The fascia was closed with PDS suture in a running standard fashion. The subcutaneous tissue was examining and any bleeding was Bovie cauterized. The subcutaneous tissue was reapproximated with interrupted sutures. The skin was closed in a subcuticular fashion by the DIMENSION SPECIFICATION INSPECTOR while I was present in the labor & delivery unit. The remainder of the procedure was performed by me with assistance. All sponge, lap, and needle counts were correct. The patient was taken to her room for recovery in a stable condition. 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
[2022-02-05] MEDS: Oxytocin 30 units/NS 500 ml 30 UNITS/500 ML IV.SOLN 167 UNITS IV (07:45)
[2022-02-05] MEDS: Ketorolac 30 MG/ML Syringe IV ×3 (08:20→20:32)
[2022-02-05] MEDS: Lactated Ringers 1,000 ML 100 ML IV (10:49)
[2022-02-05] MEDS: Senna/Docusate Sodium 1 Tablet PO (12:02)
[2022-02-05] MEDS: 0.9% Saline Lock 10 ML Syringe IV ×2 (14:43→20:33)
[2022-02-05] MEDS: Enoxaparin 40 MG/0.4 ML Syringe SC (18:01)
[2022-02-05] MEDS: DiphenhydrAMINE 25 MG Capsule PO (21:09)
[2022-02-06] MEDS: Ketorolac 30 MG/ML Syringe IV (02:30)
[2022-02-06] MEDS: 0.9% Saline Lock 10 ML Syringe IV (02:30)
[2022-02-06 03:08] VITALS: BP 101/59; PULSE 67; RESP 14; TEMP 36.3
[2022-02-06] MEDS: Acetaminophen 500 MG Tablet 1000 MG PO ×3 (05:43→18:52)
[2022-02-06 05:57] LABS: Hematocrit 32.9 % (37-47); Hemoglobin 10.8 g/dL (12.0-15.0); Mean Corp Hgb Conc 32.8 g/dL (32-36); Mean Corpuscular Hgb 32.7 pg (27.0-32.0); Mean Corpuscular Volume 99.7 fL (81-99); Mean Platelet Vol. 11.7 fl (6.2-12.0); Platelet Count 235 K/mm3 (150-450); RBC Distribution Width CV 12.7 % (11.6-14.6); RBC Distribution Width SD 45.7 fl (35.1-43.9); White Blood Count 14.4 K/mm3 (4.4-11.0)
[2022-02-06] MEDS: oxyCODONE 5 MG Tablet PO ×3 (06:57→20:52)
--- NOTE | 2022-02-06 07:44 | PCM.PN.OB ---
Subjective Subjective Patient seen at bedside. Has headache. Previous C/S had spinal headache and needed blood patch. Unsure if this is migraine or due to spinal. Sitting up in bed. Denies any dizziness, SOB or CP. Ambulating and voiding without difficulty. with minimal support. Desires discharge home tomorrow. Objective Data Objective Data Vital Signs: Vital Signs Temp Pulse Resp BP Pulse Ox O2 Del Method 97.3 F L 67 14 101/59 L 99 Room Air 02/06/22 03:08 02/06/22 03:08 02/06/22 03:08 02/06/22 03:08 02/05/22 19:55 02/06/22 03:08 Oxygen Delivery Method Room Air Weight: 181 lb Body Mass Index (BMI) 31.0 Intake & Output: Intake and Output for Last 24 Hours 02/04/22 02/05/22 02/06/22 23:59 23:59 23:59 Intake Total 2128.33 / 2128.33 Output Total 2425 / 2425 Balance -296.67 / -296.67 Lab / Micro Data Result Diagrams: 02/06/22 05:45 Labs: Laboratory Results - last 24 hr 02/06/22 05:45: WBC 14.4 H, RBC 3.30 L, Hgb 10.8 L, Hct 32.9 L, MCV 99.7 H, MCH 32.7 H, MCHC 32.8, RDW Std Deviation 45.7 H, RDW Coeff of [place] 12.7, Plt Count 235, MPV 11.7 Micro: Microbiology 02/05/22 04:00 Nasal Secretion SARS-CoV-2 Antigen (Rapid) - Final ROS Eyes Eyes: Denies blurry vision, change in vision or spots in vision ENT HEENT: Denies dizziness or headache(s) Cardiovascular Cardiovascular: Denies abdominal pain, chest pain or dyspnea Respiratory/Chest Respiratory/Chest: Denies cough, dyspnea, shortness of breath at rest or shortness of breath with exertion Gastrointestinal Gastrointestinal: Denies abdominal pain, diarrhea or vomiting Genitourinary Genitourinary: Denies change in urinary stream, difficulty urinating or dysuria Musculoskeletal Musculoskeletal: Reports none Integumentary Integumentary: Denies rash Neurologic Neurologic: Reports as per HPI and headache(s); Denies dizziness, memory loss or weakness Physical Exam Narrative Dressing is dry and intact Const alert and no apparent distress General Appearance: cooperative and comfortable Exam Limitations: no limitations HEENT normocephalic Eyes General Eye: normal appearance of both eyes Neck full ROM General: normal visual inspection Chest Chest: symmetrical chest wall rise Resp normal respiratory effort and normal air movement Effort and Inspection: symmetric chest movement Auscultation: clear to auscultation bilaterally Cardio regular rate and regular rhythm GI normal to inspection, nondistended, normoactive bowel sounds Back/Spine normal ROM Extremity full ROM and no calf tenderness General Extremity: normal exam except as noted Skin no rashes or lesions noted Neuro CN's II-XII intact bilaterally Psych mental status grossly normal Assessment & Plan (1) Previous delivery affecting : (2) Uterine anomaly: COMMENT: unicornuate (3) Care and examination of lactating mother: (4) Headache: PLAN: Plan POD 1 Repeat C/S Pain control Routine care Increase ambulation support Anesthesia consult if continues with headache Anticipate discharge home tomorrow
[2022-02-06 08:40] VITALS: BP 121/74; PULSE 76; RESP 16; TEMP 36.7; O2SAT 98
[2022-02-06] MEDS: Ibuprofen 600 MG Tablet PO ×3 (09:17→21:22)
[2022-02-06] MEDS: Senna/Docusate Sodium 1 Tablet PO (10:14)
[2022-02-06] MEDS: Enoxaparin 40 MG/0.4 ML Syringe SC (10:14)
--- NOTE | 2022-02-06 10:15 | NURSING ---
Assessment reviewed. This RN spoke with patient. patient states h/a pain rating is a 4. Motrin given per ERAS order. Pt requesting 2 oxyir. Instructed on the appropriateness of narcotic use and associated pain scale per hospital policy. Pt agreed to see if Motrin helps to relieve h/a, reminded that tylenol is due at noon. Pt states she has frequent h/a's and takes excedrin at home. Encouraged po fluids and caffeine. Denies photophobia, or blurred vision at this time. Pt is sitting up in bed, denies worsening of h/a when upright. Pt states she had a spinal h/a after her first c/section. Will continue to monitor.
[2022-02-06 14:28] VITALS: BP 112/70; PULSE 87; RESP 18; TEMP 36.6; O2SAT 98
--- NOTE | 2022-02-06 15:10 | NURSING ---
Upon entry pt states headache is worsening, states tylenol, motrin, 2 tabs of oxyir given were ineffective. Now rating pain 7/10. Pt is tearful, sitting in bed attempting to breastfeed. Pt reports minimal relief when laying down and reports some sensitivity to light. provider contacted and updated. awaiting orders.
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
[2022-02-06 20:04] VITALS: BP 107/56; PULSE 72; RESP 18; TEMP 35.8
[2022-02-07] MEDS: oxyCODONE 5 MG Tablet PO ×2 (01:16→06:30)
[2022-02-07] MEDS: Acetaminophen 500 MG Tablet 1000 MG PO ×3 (01:16→13:48)
[2022-02-07 02:54] VITALS: BP 107/69; PULSE 70; RESP 16; TEMP 36.1
[2022-02-07] MEDS: Ibuprofen 600 MG Tablet PO ×3 (03:00→13:48)
[2022-02-07] MEDS: Caffeine 200 MG Tablet 400 MG PO (08:16)
[2022-02-07 08:29] VITALS: BP 104/64; PULSE 70; RESP 18; TEMP 36.5
[2022-02-07 09:55] VITALS: BP 103/60; PULSE 64; RESP 18; TEMP 36.4
[2022-02-07 10:10] VITALS: BP 117/72; PULSE 62; RESP 16; TEMP 36.3
[2022-02-07 10:25] VITALS: BP 117/64; PULSE 99; RESP 16; TEMP 36.3
[2022-02-07] MEDS: Senna/Docusate Sodium 1 Tablet PO (10:25)
--- NOTE | 2022-02-07 13:07 | PCM.PN.OB ---
Subjective Subjective Headache is improved after spinal blood patch. Still has a headache but able to take care of herself in the . Positive flatus, no bowel movement. Incisional pain is well controlled. Objective Data Objective Data Vital Signs: Vital Signs Temp Pulse Resp BP Pulse Ox O2 Del Method 97.4 F L 99 16 117/64 98 Room Air 02/07/22 10:25 02/07/22 10:25 02/07/22 10:25 02/07/22 10:25 02/06/22 14:28 02/07/22 10:25 Oxygen Delivery Method Room Air Weight: 82.1 kg Body Mass Index (BMI) 31.0 Intake & Output: Intake and Output for Last 24 Hours 02/05/22 02/06/22 02/07/22 23:59 23:59 23:59 Intake Total 2128.33 / 2128.33 Output Total 2425 / 2425 Balance -296.67 / -296.67 Lab / Micro Data Result Diagrams: 02/06/22 05:45 Micro: Microbiology 02/05/22 04:00 Nasal Secretion SARS-CoV-2 Antigen (Rapid) - Final Physical Exam Narrative Extremities with trace edema, 2+ DTRs and no clonus Const alert General Appearance: cooperative GI GI Narrative: soft, moderate distention, fundus firm, appropriately tender. Abdominal bandage clean dry and intact Assessment & Plan (1) deliv NOS-unsp: PLAN: Plan Postoperative day #2 status post repeat section for contractions, history of previous section, unicornuate uterus, and nonreassuring heart tones. 36 weeks gestation. Single liveborn . is doing well and breast-feeding and ready for discharge per pediatrics. Patient had a spinal patch today and her headache does seem to be improved. She still has it somewhat but is able to function. Patient desires discharge home today. Routine prescriptions and instructions given. Follow-up in the office within 1 week.
--- NOTE | 2022-02-07 13:09 | PCM.DC.SUM ---
Providers Date of Admission: 02/05/22 Primary Care Physician: SYLVIA LopezC Reason For Visit: REPEAT C SECTION Diagnosis Discharge Diagnosis (1) deliv NOS-unsp: Status: Acute Plan Postoperative day #2 status post repeat section for contractions, history of previous section, unicornuate uterus, and nonreassuring heart tones. 36 weeks gestation. Single liveborn . is doing well and breast-feeding and ready for discharge per pediatrics. Patient had a spinal patch today and her headache does seem to be improved. She still has it somewhat but is able to function. Patient desires discharge home today. Routine prescriptions and instructions given. Follow-up in the office within 1 week. Medications at Discharge Home Medications PNV 153-FA 400 mcg-om3 35 mg-dha 25 mg-epa 5 mg-fish oil chew tablet ( Gummies) 1 tab PO DAILY 01/09/22 nitrofurantoin monohydrate/macrocrystals 100 mg capsule (Macrobid) 100 mg PO BID uti 02/05/22 ibuprofen 600 mg tablet 600 mg PO Q6H PRN Pain #60 TABLETS 02/07/22 oxycodone 5 mg tablet 5 mg PO Q6H PRN pain 7 days #28 TABLETS 02/07/22 Hospital Course Operations - (Repeat low transverse section) Procedures None Summary of Care Provided Hospital Course: 26-year-old multigravida admitted at 36 weeks gestation with contractions. Fetus was having recurrent variable decelerations. She underwent repeat section on 02/05/2022 without complication for recurrent decelerations. By day #2 patient was ambulating and urinating tolerating regular diet. However she had a headache that was worse when she was upright. She received a blood patch and still had a headache but was able to function and it was improved. She was sent home with routine instructions and prescriptions and to follow-up in the office within 1 week or as needed. She had no evidence of preeclampsia Weight / BMI Weight Weight: 82.1 kg Body Mass Index (BMI) 31.0 ABG / Lab / Microbiology Data Result Diagrams: 02/06/22 05:45 Microbiology: Microbiology 02/05/22 04:00 Nasal Secretion SARS-CoV-2 Antigen (Rapid) - Final D/C Instructions May resume sexual activity in: 6 weeks Lifting Restrictions: 15 pounds for 6 weeks Call your doctor if your incision/area has: Continuous Slow Oozing, Sudden Increased Bleeding, Increased Pain/ Swelling, Foul Smelling Discharge and Swelling at the incision site Call your doctor if you observe: Fever of 101 or Higher Remove Dressing in: 3 days Cleanse incision/area with: Soap & Water Please Follow Up With: Delicia Ashford MD When: Follow up with our office in 1-2 and 6 weeks or as needed. [phone] Meaningful Use Info Meaningful Use Diagnoses (Choose all that apply): None applicable Discharge Plan Admission Admit Date/Time: 02/05/22 05:25 Primary Reason for Your Visit: delivery Attending Provider: Rosalva Munoz Primary Care Provider: Ashlie Erazo NP Discharge Orders/Prescriptions Prescriptions: New ibuprofen [ibuprofen] 600 MG tablet 600 mg PO Q6H PRN (Reason: Pain) Qty: 60 1RF oxycodone 5 MG tablet 5 mg PO Q6H PRN (Reason: pain) 7 Days Qty: 28 0RF Continued Gummies 400 mcg-35 mg- 25 mg-5 mg Tablet,Chewable 1 tab PO DAILY nitrofurantoin monohyd/m-cryst [Macrobid] 100 mg Capsule 100 mg PO BID Rx Instructions: must administer with a meal/food Discontinued progesterone micronized [Prometrium] 200 mg Capsule 200 mg QHS Rx Instructions: rectal suppository Referrals / Follow Up: Ashlie Erazo NP, [facility] [Primary Care Provider] - Disposition Disposition (needs filled in before D/C Order can be placed): Home, Self Care
[2022-02-07 13:51] VITALS: BP 110/68; PULSE 75; RESP 16; TEMP 36.3; O2SAT 97
== END 2022-02-07 17:00 | disposition home or self-care (01) | DRG 786 ==
LOC: WPOUT 05:26 → WP 05:26
PROVIDERS: Advanced Practice Midwife; Admitting Provider Obstetrics & Gynecology; PCP Nurse Practitioner Family; Visit Provider Obstetrics & Gynecology
DX: O76 Abnormality in fetal heart rate and rhythm complicating labor and delivery (principal); O60.14X0 Preterm labor third trimester with preterm delivery third trimester, not applicable or unspecified; O29.43 Spinal and epidural anesthesia induced headache during pregnancy, third trimester; O34.211 Maternal care for low transverse scar from previous cesarean delivery; Z37.0 Single live birth; O32.1XX0 Maternal care for breech presentation, not applicable or unspecified; Z3A.36 36 weeks gestation of pregnancy; R51.9 Headache, unspecified; Q51.9 Congenital malformation of uterus and cervix, unspecified
CPT/HCPCS: 76815; 84112; 85025; 85027; 86850; 86900; 86901; 87426; 99218; 99251; J7120; A4216; G0378; G0463; J2405